=== PATIENT | female | born 1990 | race Caucasian/White ===

== ENCOUNTER 2019-07-28 16:30 | Emergency (ER) | payer OTHER, MEDICAID, SELFPAY ==
[2019-07-28 16:51] VITALS: BP 121/74; PULSE 87; RESP 20; TEMP 36.4; O2SAT 98; BMI 29.2
[2019-07-28 17:10] LABS: Add Manual Diff / Slide Review NO; Basophils Absolute Auto 100 /uL (0-100); Basophils Percent Auto 0.7 % (0-2); Eosinophils Absolute Auto 100 /uL (0-450); Eosinophils Percent Auto 0.8 % (2-4); Hematocrit 44.4 % (36-46); Hemoglobin 15.4 g/dL (12.0-16.0); Lymphocytes Absolute Auto 4000 /uL (1100-4500); Lymphocytes Percent Auto 30.1 % (25-40); Mean Corpuscular HGB Conc 34.6 % (30-36); Mean Corpuscular Hemoglobin 31.9 PG (26-34); Mean Corpuscular Volume 92.1 fL (80-100); Monocytes Absolute Auto 500 /uL (0-900); Monocytes Percent Auto 3.5 % (3-14); Neutrophils Absolute Auto 8700 /uL (1500-7000); Neutrophils Percent Auto 64.9 % (50-75); Platelet Count 174 X10^3/uL (150-400); Red Blood Cell Count 4.82 X10^6/uL (4.0-5.2); Red Cell Distribution Width 13.4 % (11.6-14.8); White Blood Cell Count 13.4 X10^3/uL (4.5-11.0)
--- NOTE | 2019-07-28 17:10 | PC.NURSE ---
Reports cramping after urination. Denies burning or urgency to urinate. Denies fevers or chills. States she had a normal UA at [facility] [employer]
[2019-07-28 17:19] LABS: PTT Partial Thromboplastin Tim 30 SECONDS (26.4-36.2)
[2019-07-28 17:24] LABS: Alanine Aminotransferase 33 IU/L (9-52); Albumin 4.5 g/dL (3.5-5.0); Albumin Globulin Ratio 1.6 (1.0-2.8); Alkaline Phosphatase 67 U/L (38-126); Aspartate Aminotransferase 28 IU/L (14-36); BUN Creatinine Ratio 17.1 (6-22); Bilirubin Total 0.5 mg/dL (0.2-1.3); Blood Urea Nitrogen 12 mg/dL (7-17); Calcium 9.9 mg/dL (8.4-10.2); Carbon Dioxide 28 mmol/L (22-32); Chloride 103 mmol/L (98-107); Estimated Glomerular Filt Rate > 60.0 mL/min (>60); Globulin 2.9 g/dL (1.7-4.1); Glucose 110 mg/dL (70-100); HEMOLYSIS < 15 (0-50); Lipase 162 U/L (23-300); Potassium 3.7 mmol/L (3.4-5.1); Sodium 139 mmol/L (137-145); Total Protein 7.4 g/dL (6.3-8.2)
--- NOTE | 2019-07-28 17:42 | DI.US.S_ITS ---
PROCEDURE: US PELVIC COMPLETE INDICATIONS: LLQ PAIN, HX CYSTS AND ENDO TECHNIQUE: Real-time scanning was performed of the pelvic organs, with image documentation. Additional endovaginal scanning was necessary due to incomplete visualization of the adnexal and endometrial structures by transabdominal scanning. COMPARISON: None. FINDINGS: Transabdominal scanning: Limited scanning through the kidneys shows no hydronephrosis. A 3.6 cm echogenicity is present within the left kidney suggesting the presence of a nonobstructing stone. No pathologic free abdominal or pelvic fluid. Endovaginal scanning: Uterus: Uterus is normal in size at 6.4 x 2.2 x 3.2 cm. The endometrium measures 2.6 mm in combined thickness. Ovaries: The right ovary measures 3.3 x 2.0 x 2.8 cm. The left ovary measures 3.3 x 1.9 x 2.1 cm. Both ovaries demonstrate straight multiple subcentimeter follicular cysts. IMPRESSION: 1. Multiple subcentimeter bilateral follicular cysts. These findings raise the suspicion for polycystic ovarian disease. In the absence of ovulatory dysfunction or clinically/biochemically diagnosed hyperandrogenism, findings are non specific and do not indicate the presence of polycystic ovarian syndrome. 2. Probable nonobstructive left nephrolithiasis. Dictated by: Lilia Chavez M.D. on 07/28/2019 at 18:17 Approved by: Lilia Chavez M.D. on 07/28/2019 at 18:20
--- NOTE | 2019-07-28 18:24 | DI.CT.S_ITS ---
PROCEDURE: CT KIDNEY URETER BLADDER (KUB) INDICATIONS: left flank pain TECHNIQUE: Noncontrast 5 mm thick sections acquired from the diaphragms to the symphysis. 5 mm thick coronal and sagittal reformats were then performed. For radiation dose reduction, the following was used: automated exposure control, adjustment of mA and/or kV according to patient size. COMPARISON: [facility], CT, ABD/PELVIS W/CON (PNL), 07/27/2014, 4:47. FINDINGS: Image quality: Excellent. Lung bases: Lung bases are clear. Heart size is normal. Urinary system: Both kidneys are normal in size. No kidney stones. No hydronephrosis or perinephric fat stranding. Both ureters appear non-dilated throughout their expected courses. Bladder wall thickness is normal; no calcified bladder stones. Other solid organs: Liver is normal in size. Gallbladder is contracted. Pancreas is normal in contours. Spleen is normal in size. No adrenal nodules. Peritoneum and bowel: Unenhanced bowel loops demonstrate normal wall thickness and caliber. The appendix is thin walled and gas filled. There are scattered colonic diverticula. No evidence for diverticulitis. No free fluid or air. Nodes and vessels: No retroperitoneal or mesenteric adenopathy by size criteria. Aorta and inferior vena cava are normal in caliber. Abdominal wall: No ventral hernias. Pelvis: No free pelvic fluid. No inguinal hernias or adenopathy. The uterus and ovaries are grossly unremarkable on this noncontrast study. Bones: No suspicious bony lesions. No vertebral body compression fractures. IMPRESSION: 1. No hydronephrosis, nephrolithiasis, hydroureter, or ureterolithiasis. 2. No acute intra-abdominal findings. Normal appendix. Dictated by: Lilia Chavez M.D. on 07/28/2019 at 18:54 Approved by: Lilia Chavez M.D. on 07/28/2019 at 18:57
[2019-07-28] MEDS: KETOROLAC 60 MG/2 ML VIAL IM (18:38)
[2019-07-28] MEDS: HYDROCODONE/ACET 5/325 TABLET 1 TAB PO (19:50)
[2019-07-28] MEDS: CYCLOBENZAPRINE 10 MG TABLET PO (19:50)
[2019-07-28] MEDS: LIDOCAINE PATCH 1 EACH ADH..PATCH TOP (19:50)
--- NOTE | 2019-07-28 20:05 | ED.ABDPAIN ---
HPI - Abdominal Pain <MCKINLEY Mazariegos - Last Filed: 07/28/19 20:19> General Chief Complaint: Abdominal Pain Stated Complaint: pain on lower L back going to front abdomen Time Seen by Provider: 07/28/19 17:08 Source: patient Mode of arrival: Ambulatory Limitations: no limitations History of Present Illness HPI narrative: The patient is a 29-year-old female nonsmoker status post wisdom tooth removal who presents with a chief complaint of left back pain. She states that she has some pain after urination, but denies dysuria urgency or frequency. She states that she was seen today at [facility], had a normal urinalysis and was then sent to the emergency department. She states that 6 days ago she had some nausea vomiting, but recovered fully. She states she has a history of ovarian cyst as well as endometriosis. She denies any possibility of as well to the possibility of sexually transmitted infections. She thinks the pain may be musculoskeletal related to lifting as she has been caring for a family member who for the past month and half. Related Data Home Medications Medication Instructions Recorded Confirmed medroxyprogesterone 150 mg/mL 150 mg IM [id number] 04/07/18 04/07/18 intramuscular suspension Previous Rx's Medication Instructions Recorded cyclobenzaprine 10 mg PO TID PRN #20 tab 07/28/19 hydrocodone-acetaminophen [Strathmore] 1 tab PO Q4-6H PRN #5 tab 07/28/19 Allergies Allergy/AdvReac Type Severity Reaction Status Date / Time doxycycline AdvReac n/v Verified 04/07/18 10:08 guaifenesin [From Mucinex] AdvReac n/v Verified 04/07/18 10:08 trazodone AdvReac mental Verified 04/07/18 10:08 status changes Review of Systems <MCKINLEY Mazariegos - Last Filed: 07/28/19 20:19> Review of Systems Narrative: GENERAL: Denies chills, fatigue, malaise, fever, sweats. HEENT: Denies sinus pain, ear pain, sore throat, difficulty swallowing, dizziness. RESPIRATORY: Denies dyspnea, cough, wheezing, hemoptysis, sputum. CARDIOVASCULAR: Denies chest pain, palpitations, orthopnea, edema, GASTROINTESTINAL: Denies nausea, vomiting, abdominal pain, diarrhea, constipation, melena. : HPI MUSCULOSKELETAL: HPI SKIN: Denies rash, skin lesions, or other NEUROLOGIC: Denies weakness, headache, numbness, change in speech, confusion, seizures, incoordination. PSYCHIATRIC: No concerning psychosocial issues. 12 point review of systems is negative except for those stated above PFSH <AXEL Mazariegos-BC - Last Filed: 07/28/19 20:19> Surgical History (Updated 04/07/18 @ 10:11 by Michelle Raya LPN) S/P wisdom tooth extraction (Resolved) Social History Smoking Status: Current every day smoker Social History Smoking Status: Current every day smoker Exam <AXEL Mazariegos- - Last Filed: 07/28/19 20:19> Narrative Exam Narrative: GENERAL: This is a well-nourished, well-developed patient, appears uncomfortable HEAD: Atraumatic. Normocephalic. No temporal or scalp tenderness. EYES: Pupils equal round and reactive. Extraocular motions intact. No scleral icterus. No injection or drainage. ENT: Nose without bleeding, purulent drainage or septal hematoma. Throat without erythema, tonsillar hypertrophy or exudate. Uvula midline. Airway patent. NECK: Trachea midline. No JVD or lymphadenopathy. Supple, nontender, no meningeal signs. CARDIOVASCULAR: Regular rate and rhythm without murmurs, gallops, or rubs. RESPIRATORY: Clear to auscultation. Breath sounds equal bilaterally. No wheezes, rales, or rhonchi. No cough. No increased respiratory effort. No accessory muscle use. GASTROINTESTINAL: Abdomen soft, tenderness to left lower quadrant palpation, nondistended. No hepato-splenomegaly, or palpable masses. No guarding. Active bowel sounds all 4 quadrants EXTREMITIES: No clubbing, cyanosis, or edema. No joint tenderness, effusion, or edema noted. BACK: Pain to palpation left lower paraspinal muscle. No pain to palpation of CT or L-spine. NEURO: AOx3. SKIN: No rash or erythema. Initial Vital Signs Initial Vital Signs: Vital Signs Temperature 97.5 F L 07/28/19 16:51 Pulse Rate 87 07/28/19 16:51 Respiratory Rate 20 07/28/19 16:51 Blood Pressure 121/74 07/28/19 16:51 Pulse Oximetry 98 07/28/19 16:51 <Nima Ch DO - Last Filed: 07/29/19 06:55> Initial Vital Signs Initial Vital Signs: Vital Signs Temperature 97.5 F L 07/28/19 16:51 Pulse Rate 87 07/28/19 16:51 Respiratory Rate 20 07/28/19 16:51 Blood Pressure 121/74 07/28/19 16:51 Pulse Oximetry 98 07/28/19 16:51 Course <MCKINLEY Mazariegos - Last Filed: 07/28/19 20:19> Orders Ordered: Discontinued Medications Hydrocodone Bitart/Acetaminophen (Strathmore 5/325) 1 tab PO NOW ONE Stop: 07/28/19 19:40 Last Admin: 07/28/19 19:50 Dose: 1 tab Documented by: DANIEL Cyclobenzaprine HCl (Flexeril) 10 mg PO NOW ONE Stop: 07/28/19 19:40 Last Admin: 07/28/19 19:50 Dose: 10 mg Documented by: DANIEL Ketorolac Tromethamine (Toradol) 60 mg IM NOW ONE Stop: 07/28/19 18:25 Last Admin: 07/28/19 18:38 Dose: 60 mg Documented by: SCANAPO Lidocaine (Lidoderm) 1 each TOP NOW ONE Stop: 07/28/19 19:40 Last Admin: 07/28/19 19:50 Dose: 1 each Documented by: DANIEL Vital Signs Vital signs: Vital Signs - 8 hr 07/28/19 16:51 Temperature 97.5 F L Pulse Rate 87 Respiratory Rate 20 Blood Pressure 121/74 Pulse Oximetry 98 <DO Mony Novak Last Filed: 07/29/19 06:55> Orders Ordered: Discontinued Medications Hydrocodone Bitart/Acetaminophen (Strathmore 5/325) 1 tab PO NOW ONE Stop: 07/28/19 19:40 Last Admin: 07/28/19 19:50 Dose: 1 tab Documented by: DANIEL Cyclobenzaprine HCl (Flexeril) 10 mg PO NOW ONE Stop: 07/28/19 19:40 Last Admin: 07/28/19 19:50 Dose: 10 mg Documented by: DANIEL Ketorolac Tromethamine (Toradol) 60 mg IM NOW ONE Stop: 07/28/19 18:25 Last Admin: 07/28/19 18:38 Dose: 60 mg Documented by: SOHAN Lidocaine (Lidoderm) 1 each TOP NOW ONE Stop: 07/28/19 19:40 Last Admin: 07/28/19 19:50 Dose: 1 each Documented by: DANIEL Vital Signs Vital signs: Vital Signs - 8 hr 07/28/19 16:51 Temperature 97.5 F L Pulse Rate 87 Respiratory Rate 20 Blood Pressure 121/74 Pulse Oximetry 98 MDM - Abdominal Pain <AXEL Mazariegos-BC - Last Filed: 07/28/19 20:19> Lab Data Result diagrams: 07/28/19 17:03 07/28/19 17:03 Labs: Lab Results 07/28/19 07/28/19 07/28/19 Range/Units 17:03 17:03 17:03 WBC 13.4 H (4.5-11.0) X10^3/uL RBC 4.82 (4.0-5.2) X10^6/uL Hgb 15.4 (12.0-16.0) g/dL Hct 44.4 (36-46) % MCV 92.1 (80-100) fL MCH 31.9 (26-34) PG MCHC 34.6 (30-36) % RDW 13.4 (11.6-14.8) % Plt Count 174 (150-400) X10^3/uL Neut % (Auto) 64.9 (50-75) % Lymph % (Auto) 30.1 (25-40) % Sampson % (Auto) 3.5 (3-14) % Eos % (Auto) 0.8 L (2-4) % Baso % (Auto) 0.7 (0-2) % Neut # (Auto) 8700 H (1550-8236) /uL Lymph # (Auto) 4000 (6096-1132) /uL Sampson # (Auto) 500 (0-900) /uL Eos # (Auto) 100 (0-450) /uL Baso # (Auto) 100 (0-100) /uL PT 12.0 (10.1-12.7) SECONDS INR 1.0 (0.9-1.3) APTT 30 (26.4-36.2) SECONDS Sodium 139 (137-145) mmol/L Potassium 3.7 (3.4-5.1) mmol/L Chloride 103 (98-107) mmol/L Carbon Dioxide 28 (22-32) mmol/L BUN 12 (7-17) mg/dL Creatinine 0.70 (0.52-1.04) mg/dL Estimated GFR > 60.0 (>60) mL/min BUN/Creatinine Ratio 17.1 (6-22) Glucose 110 H (70-100) mg/dL Calcium 9.9 (8.4-10.2) mg/dL Total Bilirubin 0.5 (0.2-1.3) mg/dL AST 28 (14-36) IU/L ALT 33 (9-52) IU/L Alkaline Phosphatase 67 (38-126) U/L Total Protein 7.4 (6.3-8.2) g/dL Albumin 4.5 (3.5-5.0) g/dL Globulin 2.9 (1.7-4.1) g/dL Albumin/Globulin Ratio 1.6 (1.0-2.8) Lipase 162 (23-300) U/L Point of care testing: Point of Care Testing Test Results Negative Urine Dip Bedside Urine Glucose Negative Bedside Urine Bilirubin - Negative Bedside Urine Ketone +/- 5 Urine Specific [place] 1.025 Bedside Urine Occult Blood - Negative Bedside Urine pH 6.0 Bedside Urine Protein +/- 15 Bedside Urine Urobilinogen +/- 1mg Bedside Urine Nitrite - Negative Bedside Urine Leukocytes - Negative Esterase Imaging Data CT scan - abdomen: Radiologist's impression: [place] [address] CT Scan Report Signed Patient: Cash Cavanaugh#: [id number] : 1990Acct:[id number] Age/Sex: FDate of Service: 07/28/19 Loc: ED Accession Number: [id number] Procedure: CT kidney ureter bladder (KUB) Ordering Provider: Camila Adler PROCEDURE: CT KIDNEY URETER BLADDER (KUB) INDICATIONS: left flank pain TECHNIQUE: Noncontrast 5 mm thick sections acquired from the diaphragms to the symphysis. 5 mm thick coronal and sagittal reformats were then performed. For radiation dose reduction, the following was used: automated exposure control, adjustment of mA and/or kV according to patient size. COMPARISON: [facility], CT, ABD/PELVIS W/CON (PNL), 07/27/2014, 4:47. FINDINGS: Image quality: Excellent. Lung bases: Lung bases are clear. Heart size is normal. Urinary system: Both kidneys are normal in size. No kidney stones. No hydronephrosis or perinephric fat stranding. Both ureters appear non-dilated throughout their expected courses. Bladder wall thickness is normal; no calcified bladder stones. Other solid organs: Liver is normal in size. Gallbladder is contracted. Pancreas is normal in contours. Spleen is normal in size. No adrenal nodules. Peritoneum and bowel: Unenhanced bowel loops demonstrate normal wall thickness and caliber. The appendix is thin walled and gas filled. There are scattered colonic diverticula. No evidence for diverticulitis. No free fluid or air. Nodes and vessels: No retroperitoneal or mesenteric adenopathy by size criteria. Aorta and inferior vena cava are normal in caliber. Abdominal wall: No ventral hernias. Pelvis: No free pelvic fluid. No inguinal hernias or adenopathy. The uterus and ovaries are grossly unremarkable on this noncontrast study. Bones: No suspicious bony lesions. No vertebral body compression fractures. IMPRESSION: 1. No hydronephrosis, nephrolithiasis, hydroureter, or ureterolithiasis. 2. No acute intra-abdominal findings. Normal appendix. US - abdomen: Radiologist's impression: Tash Cavanaugh 29 F 1990 [place] [address] Ultrasound Report Signed Patient: Isael CavanaughR#: [id number] : 1990Acct:[id number] Age/Sex: 29 / FDate of Service: 07/28/19 Loc: ED Accession Number: [id number] Procedure: US pelvic complete Ordering Provider: Camila Adler EXERCISE PHYSIOLOGIST CERTIFIED-BC PROCEDURE: US PELVIC COMPLETE INDICATIONS: LLQ PAIN, HX CYSTS AND ENDO TECHNIQUE: Real-time scanning was performed of the pelvic organs, with image documentation. Additional endovaginal scanning was necessary due to incomplete visualization of the adnexal and endometrial structures by transabdominal scanning. COMPARISON: None. FINDINGS: Transabdominal scanning: Limited scanning through the kidneys shows no hydronephrosis. A 3.6 cm echogenicity is present within the left kidney suggesting the presence of a nonobstructing stone. No pathologic free abdominal or pelvic fluid. Endovaginal scanning: Uterus: Uterus is normal in size at 6.4 x 2.2 x 3.2 cm. The endometrium measures 2.6 mm in combined thickness. Ovaries: The right ovary measures 3.3 x 2.0 x 2.8 cm. The left ovary measures 3.3 x 1.9 x 2.1 cm. Both ovaries demonstrate straight multiple subcentimeter follicular cysts. IMPRESSION: 1. Multiple subcentimeter bilateral follicular cysts. These findings raise the suspicion for polycystic ovarian disease. In the absence of ovulatory dysfunction or clinically/biochemically diagnosed hyperandrogenism, findings are non specific and do not indicate the presence of polycystic ovarian syndrome. 2. Probable nonobstructive left nephrolithiasis. Dictated by: Lilia Chavez M.D. on 07/28/2019 at 18:17 Approved by: Lilia Chavez M.D. on 07/28/2019 at 18:20 MDM Narrative Medical decision making narrative: The patient is a 29-year-old female who presents with a chief complaint of left-sided flank pain and left lower quadrant pain. Given her history of ovarian cysts and endometriosis, and ultrasound was obtained. This illustrates multiple bilateral follicular cysts, raising suspicion of PCOS there was concern for a left kidney stone on ultrasound, so a CT was obtained which came back with no acute findings. The patient was medicated from musculoskeletal pain, has no red flag symptoms of incontinence bowel, incontinence of bladder saddle anesthesia. She felt much better after medications in the emergency department rested to go home. I gave her prescriptions of Strathmore and Flexeril. Discussed using lidocaine patch as well as NSAIDs. Discussed that Strathmore can be constipating and sedating. Encourage PCP follow-up. Patient has no questions or concerns upon discharge and states understanding of follow-up care as well as return precautions. <Nima Ch, DO - Last Filed: 07/29/19 06:55> Lab Data Labs: Lab Results 07/28/19 07/28/19 07/28/19 Range/Units 17:03 17:03 17:03 WBC 13.4 H (4.5-11.0) X10^3/uL RBC 4.82 (4.0-5.2) X10^6/uL Hgb 15.4 (12.0-16.0) g/dL Hct 44.4 (36-46) % MCV 92.1 (80-100) fL MCH 31.9 (26-34) PG MCHC 34.6 (30-36) % RDW 13.4 (11.6-14.8) % Plt Count 174 (150-400) X10^3/uL Neut % (Auto) 64.9 (50-75) % Lymph % (Auto) 30.1 (25-40) % Sampson % (Auto) 3.5 (3-14) % Eos % (Auto) 0.8 L (2-4) % Baso % (Auto) 0.7 (0-2) % Neut # (Auto) 8700 H (2309-3385) /uL Lymph # (Auto) 4000 (9570-6928) /uL Sampson # (Auto) 500 (0-900) /uL Eos # (Auto) 100 (0-450) /uL Baso # (Auto) 100 (0-100) /uL PT 12.0 (10.1-12.7) SECONDS INR 1.0 (0.9-1.3) APTT 30 (26.4-36.2) SECONDS Sodium 139 (137-145) mmol/L Potassium 3.7 (3.4-5.1) mmol/L Chloride 103 (98-107) mmol/L Carbon Dioxide 28 (22-32) mmol/L BUN 12 (7-17) mg/dL Creatinine 0.70 (0.52-1.04) mg/dL Estimated GFR > 60.0 (>60) mL/min BUN/Creatinine Ratio 17.1 (6-22) Glucose 110 H (70-100) mg/dL Calcium 9.9 (8.4-10.2) mg/dL Total Bilirubin 0.5 (0.2-1.3) mg/dL AST 28 (14-36) IU/L ALT 33 (9-52) IU/L Alkaline Phosphatase 67 (38-126) U/L Total Protein 7.4 (6.3-8.2) g/dL Albumin 4.5 (3.5-5.0) g/dL Globulin 2.9 (1.7-4.1) g/dL Albumin/Globulin Ratio 1.6 (1.0-2.8) Lipase 162 (23-300) U/L Point of care testing: Point of Care Testing Test Results Negative Urine Dip Bedside Urine Glucose Negative Bedside Urine Bilirubin - Negative Bedside Urine Ketone +/- 5 Urine Specific [place] 1.025 Bedside Urine Occult Blood - Negative Bedside Urine pH 6.0 Bedside Urine Protein +/- 15 Bedside Urine Urobilinogen +/- 1mg Bedside Urine Nitrite - Negative Bedside Urine Leukocytes - Negative Esterase Discharge Plan Departure Patient Disposition: Home Clinical Impression: Low back pain Qualifiers: Chronicity: acute Back pain laterality: left Sciatica presence: without sciatica Qualified Code(s): M54.5 - Low back pain Discharge Date/Time: 07/28/19 20:22 Instructions: DI for Low Back Pain, Activity May Be Better then Rest for Low Back Pain Recovery, Exercise May Reduce Risk of Low Back Pain Activity Restrictions/Additional Instructions: Please follow up with primary care provider. Your ultrasound today shows bilateral follicular cyst, which can be indicative of polycystic ovarian syndrome. Please follow up with primary care regarding this. Your CT scan did not show any concerning findings. We have treated you for musculoskeletal pain with muscle relaxers and pain medications. Be aware Strathmore can be constipating and sedating. Lidocaine patches are available [email or web address] at the [employer]. Please continue rest and NSAIDs as needed and able. Please come back to emergency department for any acute concerns such as incontinence of bowel, incontinence of bladder or numbness in the groin. Prescriptions: New hydrocodone-acetaminophen [Strathmore] 5-325 mg tablet 1 tab PO Q4-6H PRN (Reason: pain) Qty: 5 RF: 0 cyclobenzaprine 10 mg tablet 10 mg PO TID PRN (Reason: muscle spasm) Qty: 20 RF: 0 No Action medroxyprogesterone [Depo-Provera] 150 mg/mL suspension 150 mg IM [id number] RF: 0 Stand Alone Forms: Work Release Note <Nima Ch DO - Last Filed: 07/29/19 06:55> Sign Out Provider Sign Out Attestation: I was available for consultation during this patient's emergency department encounter
[2019-07-28 20:21] VITALS: BP 114/76; PULSE 68; RESP 16; O2SAT 97
== END 2019-07-28 20:22 | disposition home or self-care (01) ==
PROVIDERS: Emergency Medicine; Emergency Provider Nurse Practitioner Family
DX: M54.5 Low back pain (principal)
CPT/HCPCS: 36415; 74176; 76830; 76856; 80053; 81003; 81025; 83690; 85025; 85610; 85730; 96372; 99282; 99284; J1885

== ENCOUNTER 2019-09-22 07:12 | Day surgery (SDC) | payer OTHER, MEDICAID, SELFPAY ==
[2019-08-29 14:58] VITALS: BMI 28.6
[2019-09-14 15:08] VITALS: BMI 28.6
[2019-09-22] VITALS (12 sets, daily range): BP systolic 111–154; BP diastolic 64–96; PULSE 87–117; RESP 12–25; TEMP 36.4–36.9; O2SAT 93–98; BMI 30.2
[2019-09-22] MEDS: LACTATED RINGERS 1,000 ML 42 ML IV ×2 (07:45→10:08)
--- NOTE | 2019-09-22 08:10 | SUR.OPER ---
Lithotomy on padded OR bed, head on pillow, arms gel padded and tucked at sides. Legs secured in padded yellow fins stirrups.
--- NOTE | 2019-09-22 08:49 | PM.HP.1 ---
History of Present Illness History of Present Illness Date Patient Seen: 09/22/19 Time Patient Seen: 08:49 Chief complaint: [id number] PELVIC Narrative: Patient is a 29-year-old 0 with pelvic pain and BOBBI 1 of the cervix She is here for cryotherapy of the cervix as well as a diagnostic laparoscopy with possible fulguration of endometriosis Patient History Medical History (Updated 09/22/19 @ 08:51 by Darshana Huerta MD) Dysplasia of cervix, low grade (BOBBI 1) (Acute) Endometriosis (Acute) Ovarian cyst (Acute) Pelvic pain (Acute) Surgical History (Updated 08/29/19 @ 15:02 by Carito Suazo RN) History of colposcopy (Acute 04/07/18) S/P wisdom tooth extraction (Resolved) Family & Social History Tobacco & Substance use: Smoking Status Current every day smoker alcohol intake current alcohol intake frequency other Substance Use Type marijuana Meds Home Medications and Allergies Home Medications Medication Instructions Recorded Confirmed Type medroxyprogesterone 150 mg/mL 150 mg IM [id number] 04/07/18 09/22/19 History intramuscular suspension Allergies Allergy/AdvReac Type Severity Reaction Status Date / Time doxycycline AdvReac n/v Verified 09/22/19 07:35 guaifenesin [From Mucinex] AdvReac n/v Verified 09/22/19 07:35 trazodone AdvReac mental Verified 09/22/19 07:35 status changes Exam Vital Signs (past 8 hours): - 09/22/19 07:41 Temperature 97.6 F Pulse Rate 87 Respiratory Rate 12 Blood Pressure 138/88 Pulse Oximetry 98 Oxygen Delivery Method Room Air Narrative Exam Narrative: HEENT: No thyromegaly, no anterior cervical or supraclavicular lymphadenopathy. Lungs:Clear to auscultation bilaterally, no wheezes. Cardiovascular: Regular rate and rhythm, no murmurs, rubs, or gallops. Abdomen: No scars. No hepatosplenomegaly. No masses palpable. External genitalia: Normal Vagina: Normal Cervix: Normal Bimanual exam: 6 Week size uterus. Mobile. Rectal: No masses. Colposcopic biopsies: Consistent with BOBBI 1 Assessment & Plan Assessment and plan (1) Pelvic pain: Current visit: Yes Status: Acute (2) Dysplasia of cervix, low grade (BOBBI 1): Current visit: Yes Status: Acute Assessment & Plan narrative: Assessment: 29-year-old 0 with pelvic pain, history of ovarian cysts, and BOBBI 1 of the cervix Plan: Diagnostic laparoscopy with possible fulguration of endometriosis Cryotherapy of the cervix The risks, benefits, and alternatives to the procedure were explained to the patient. The risks including bleeding, infection, injury to the bowel, bladder, or ureters. She understands these risks and agrees to proceed. A full par Q was held and consent form was signed. Time Spent With Patient Time with patient: 15-24 minutes
--- NOTE | 2019-09-22 08:52 | PM.PREOP ---
Pre-operative Note Interval Note History & Physical reviewed/Exam performed by Physician: Yes Changes to H&P: No
[2019-09-22] MEDS: BUPIVACAINE 0.5% W/ EPI (PF) VIAL 30 ML INJ (09:31)
[2019-09-22] MEDS: KETOROLAC 30 MG/ML VIAL IV (09:59)
[2019-09-22] MEDS: fentaNYL 100 MCG/2 ML INJ IV ×2 (10:03→10:10)
[2019-09-22] MEDS: HYDROMORPHONE 2 MG INJ IV ×3 (10:24→10:43)
[2019-09-22] MEDS: LORazepam 2 MG/ML INJ 0.25 MG IV (10:33)
--- NOTE | 2019-09-22 10:50 | SUR.PHASEI ---
Pt requested scds be removed, scds removed. Ankle waves encouraged.
[2019-09-22] MEDS: OXYCODONE/ACETAMINOPHEN 5/325 TABLET 1 TAB PO (10:53)
--- NOTE | 2019-09-22 11:03 | SUR.PHASEI ---
Dr. Sigala notified pt's 112, temp wnl. Ok to discharge per MD.
--- NOTE | 2019-09-26 06:27 | PM.GYNOP.1 ---
Operative Date/Time/Diagnoses Date of procedure: 09/22/19 Time of procedure: 09:45 Procedure & Clinicians Procedure: Procedures Operation Date: 09/22/19 08:45 Actual Procedures Side Surgeon p Laparoscopy Diagnostic, cryotherapy of cervix Darshana Huerta MD Indications: Pelvic pain History of ovarian cyst BOBBI 1 of the cervix Surgeon: Darshana Huerta Anesthesia Type: General Operative Notes Findings: Six week size anteverted uterus No evidence of endometriosis No evidence of ovarian cyst Normal liver, gallbladder, and appendix Normal tubes and ovaries Closure Type: primary Specimen(s): none Estimated blood loss (mL): 5 Blood products transfused: none Procedure in detail: After informed consent was obtained, the patient was taken to the operating room where she was placed in the dorsal supine position. After adequate general endotracheal anesthesia was achieved, she was placed in the dorsal lithotomy position, and prepped and draped in the usual sterile fashion. A time-out was performed. A bivalve speculum was placed into the vagina and the anterior lip of the cervix was grasped with a single-tooth tenaculum. The cervical os was sequentially dilated until the Zumi uterine manipulator could pass easily into the endometrial cavity. The single-tooth tenaculum was removed from the anterior lip of the cervix. The bivalve speculum was removed from the vagina. Attention was then turned to the abdomen where 6 cc of 0.5% Marcaine with epinephrine were injected in the umbilical fold. The Veress needle was placed into the peritoneal cavity, and its placement confirmed by aspiration and drop test. The abdominal cavity was insufflated with 3.1 L of CO2. The Veress needle was removed, and a 5 mm trocar was placed without difficulty. A 2nd incision was made after 6 cc of 0.5% Marcaine with epinephrine were injected midway between the pubic symphysis and umbilicus, 4 cm lateral to the midline. A 5 mm trocar was placed under direct visualization. The probe was placed through the lateral incision. The tubes and ovaries were identified and were found to be normal. There was no evidence of endometriosis on the ovaries, tubes, or in the ovarian fossa. The uterus was normal. The liver, gallbladder, and appendix were normal. There was no evidence of ovarian cyst. The instruments were removed from the abdomen. The CO2 was allowed to escape. The incisions were repaired with 4-0 Biosyn in a subcuticular fashion. Steri-Strips, 2 x 2, and op site were placed. Attention was then turned to the vagina where the Zumi uterine manipulator was removed from the uterus. The cervix was dried with large procto swabs. Using the medium-sized tip cryotherapy was applied to the cervix for 3 minutes. The cervix was allowed to thaw. Cryotherapy was applied for 3 minutes. After thawing, the bivalve speculum was removed from the vagina. Sponge, lap, and instrument counts were correct x2. The patient tolerated the procedure well, and was taken to PACU in stable condition. Complications: none Post-operative Condition: stable Disposition: PACU Plan for aftercare: Home after recovery
== END 2019-09-22 11:34 | disposition home or self-care (01) ==
PROVIDERS: PCP Family Medicine; Visit Provider Obstetrics & Gynecology
PROC: (CPT 49320; principal; 2019-09-22 08:45)
DX: R10.2 Pelvic and perineal pain (principal); N94.10 Unspecified dyspareunia; N87.0 Mild cervical dysplasia; F17.210 Nicotine dependence, cigarettes, uncomplicated
CPT/HCPCS: 49320; 57511; J1100; J1170; J1885; J2060; J2250; J2405; J2704; J3010

== ENCOUNTER 2020-07-22 15:39 | Emergency (ER) | payer OTHER, MEDICAID, SELFPAY ==
[2020-07-22 15:48] VITALS: BP 135/93; PULSE 97; RESP 24; TEMP 36.9; O2SAT 97
--- NOTE | 2020-07-22 16:14 | PC.NURSE ---
Hot grease burn to bilateral feet. Went through shoes. Small red area on right ankle, superficial red area.
[2020-07-22] MEDS: HYDROCODONE/ACET 5/325 TABLET 2 TAB PO (16:15)
[2020-07-22] MEDS: TET,DIPH,PERTUSS(ACELL),VAC/PF 0.5 ML SYRINGE IM (16:15)
[2020-07-22] MEDS: BACITRACIN OINT 0.9 GM PCKT 5 APPLIC TOP (18:43)
[2020-07-22] MEDS: HYDROCODONE/ACET 5/325 PREPACK 1 BOTTLE MISC (19:12)
--- NOTE | 2020-07-22 20:49 | ED.BURNSMOKE ---
HPI - Burn/Smoke Inhalation <AXEL Mazariegos-BC - Last Filed: 07/22/20 20:55> General Chief complaint: Burn/Smoke Inhalation Stated complaint: spilled hot grease on her feet Time Seen by Provider: 07/22/20 16:03 Source: patient Mode of arrival: Ambulatory Limitations: no limitations History of Present Illness HPI Narrative: The patient is a 30-year-old female current smoker with no pertinent medical history presents with a chief complaint of a burn. She unfortunately spilled hot grease on her feet at her job. She was wearing socks and shoes but it soaked through. She does not know when her last tetanus was. She states she is having some blistering. She washed off her feet after it happened. It happened at approximately noon today, several hours prior to arrival. Related Data Home Medications Medication Instructions Recorded Confirmed medroxyprogesterone 150 mg/mL 150 mg IM [id number] 04/07/18 10/12/19 intramuscular suspension Previous Rx's Medication Instructions Recorded ondansetron 4 mg disintegrating 4 mg PO Q8H PRN #10 tab 09/23/19 tablet fluconazole 150 mg tablet 150 mg PO ONCE #1 tab 10/12/19 oxycodone-acetaminophen 5 mg-325 1 tab PO Q4-6H PRN #14 tab 10/12/19 mg tablet hydrocodone-acetaminophen 1 tab PO Q4-6H PRN #14 tab 07/22/20 Allergies Allergy/AdvReac Type Severity Reaction Status Date / Time doxycycline AdvReac n/v Verified 10/12/19 12:25 guaifenesin [From Mucinex] AdvReac n/v Verified 10/12/19 12:25 trazodone AdvReac mental Verified 10/12/19 12:25 status changes Review of Systems <ARIEL MazariegosBC - Last Filed: 07/22/20 20:55> Review of Systems Narrative: GENERAL: Denies chills, fatigue, malaise, fever, sweats. HEENT: Denies sinus pain, ear pain, sore throat, difficulty swallowing, dizziness. RESPIRATORY: Denies dyspnea, cough, wheezing, hemoptysis, sputum. CARDIOVASCULAR: Denies chest pain, palpitations, orthopnea, edema, GASTROINTESTINAL: Denies nausea, vomiting, abdominal pain, diarrhea, constipation, melena. : Denies dysuria, frequency, incontinence, hematuria, urinary retention. MUSCULOSKELETAL: denies weakness, joint pain, or bony pain SKIN: See HPI NEUROLOGIC: Denies weakness, headache, numbness, change in speech, confusion, seizures, incoordination. PSYCHIATRIC: No concerning psychosocial issues. 12 point review of systems is negative except for those stated above Patient History <MCKINLEY Mazariegos - Last Filed: 07/22/20 20:55> Medical History Dyspareunia (Acute) Dysplasia of cervix, low grade (BOBBI 1) (Acute) Endometriosis (Acute) Ovarian cyst (Acute) Pelvic pain (Acute) Surgical History H/O laparoscopy (Acute ~09/22/19) History of colposcopy (Acute 04/07/18) S/P wisdom tooth extraction (Resolved) Social History Smoking Status: Current every day smoker alcohol intake: current Smoking Status: Current every day smoker alcohol intake frequency: other Substance Use Type: marijuana Exam <MCKINLEY Mazariegos - Last Filed: 07/22/20 20:55> Narrative Exam Narrative: GENERAL: This is a well-nourished, well-developed patient, teary HEAD: Atraumatic. Normocephalic. No temporal or scalp tenderness. EYES: Pupils equal round and reactive. Extraocular motions intact. No scleral icterus. No injection or drainage. ENT: Nose without bleeding, purulent drainage or septal hematoma. Wearing a mask Airway patent. NECK: Trachea midline. No JVD or lymphadenopathy. Supple, nontender, no meningeal signs. CARDIOVASCULAR: Regular rate and rhythm RESPIRATORY: No cough. No increased respiratory effort. No accessory muscle use. EXTREMITIES: See skin exam positive pedal pulses. Capillary refill less than 2 seconds all toes. BACK: Nontender without deformity or crepitance. No flank tenderness. NEURO: AOx3. SKIN: 2 x 1 cm blistered partial-thickness burn on right great toe, 0.5 cm linear erythema patch on anterior aspect of right ankle, 0.2 x 0.2 cm blister on left foot 2nd toe, 2 x 2 cm erythema noted on top of right left toe. Surface area less than 1%. Initial Vital Signs Initial Vital Signs: Vital Signs Temperature 98.5 F 07/22/20 15:48 Pulse Rate 97 H 07/22/20 15:48 Respiratory Rate 24 07/22/20 15:48 Blood Pressure 135/93 H 07/22/20 15:48 Pulse Oximetry 97 07/22/20 15:48 <Osman Kaur DO - Last Filed: 07/23/20 23:43> Initial Vital Signs Initial Vital Signs: Vital Signs Temperature 98.5 F 07/22/20 15:48 Pulse Rate 97 H 07/22/20 15:48 Respiratory Rate 24 07/22/20 15:48 Blood Pressure 135/93 H 07/22/20 15:48 Pulse Oximetry 97 07/22/20 15:48 Scores <MCKINLEY Mazariegos - Last Filed: 07/22/20 20:55> GCS Leida coma scale eye opening: Spontaneous [place] coma scale verbal response: Orientated Le[place] coma scale motor response: Obey commands [place] coma scale total score: 15 Course <MCKINLEY Mazariegos - Last Filed: 07/22/20 20:55> Orders Ordered: Discontinued Medications Hydrocodone Bitart/Acetaminophen ([place] 5/325) 2 tab PO NOW ONE Stop: 07/22/20 16:11 Last Admin: 07/22/20 16:15 Dose: 2 tab Documented by: EVERETT Hydrocodone Bitart/Acetaminophen (Vicodin 5/325 Prepack) 1 bottle MISC SEEINSTR ONE Stop: 07/22/20 18:54 Last Admin: 07/22/20 19:12 Dose: 1 bottle Documented by: BALDOMERO Bacitracin (Bacitracin) 5 applic TOP NOW ONE Stop: 07/22/20 18:33 Last Admin: 07/22/20 18:43 Dose: 5 applic Documented by: DANIEL Diphtheria/Tetanus/Acell Pertussis (Adacel) 0.5 ml IM .ONCE ONE Stop: 07/22/20 16:11 Last Admin: 07/22/20 16:15 Dose: 0.5 ml Documented by: EVERETT Ketorolac Tromethamine (Toradol) 30 mg IM NOW ONE Stop: 07/22/20 17:44 Last Admin: 07/22/20 18:02 Dose: Not Given Documented by: DANIEL Vital Signs Vital signs: Vital Signs - 8 hr 07/22/20 15:48 Temperature 98.5 F Pulse Rate 97 H Respiratory Rate 24 Blood Pressure 135/93 H Pulse Oximetry 97 <Osman Kaur DO - Last Filed: 07/23/20 23:43> Orders Ordered: Discontinued Medications Hydrocodone Bitart/Acetaminophen ([place] 5/325) 2 tab PO NOW ONE Stop: 07/22/20 16:11 Last Admin: 07/22/20 16:15 Dose: 2 tab Documented by: EVERETT Hydrocodone Bitart/Acetaminophen (Vicodin 5/325 Prepack) 1 bottle MISC SEEINSTR ONE Stop: 07/22/20 18:54 Last Admin: 07/22/20 19:12 Dose: 1 bottle Documented by: BALDOMERO Bacitracin (Bacitracin) 5 applic TOP NOW ONE Stop: 07/22/20 18:33 Last Admin: 07/22/20 18:43 Dose: 5 applic Documented by: DANIEL Diphtheria/Tetanus/Acell Pertussis (Adacel) 0.5 ml IM .ONCE ONE Stop: 07/22/20 16:11 Last Admin: 07/22/20 16:15 Dose: 0.5 ml Documented by: EVERETT Ketorolac Tromethamine (Toradol) 30 mg IM NOW ONE Stop: 07/22/20 17:44 Last Admin: 07/22/20 18:02 Dose: Not Given Documented by: DANIEL Vital Signs Vital signs: Vital Signs - 8 hr 07/22/20 15:48 Temperature 98.5 F Pulse Rate 97 H Respiratory Rate 24 Blood Pressure 135/93 H Pulse Oximetry 97 MDM - Burn/Smoke Inhalation <MCKINLEY Mazariegos - Last Filed: 07/22/20 20:55> MDM Narrative Medical decision making narrative: The patient is a 30-year-old female who presents with a chief complaint of partial-thickness lamb to her bilateral lower extremities. She is noted to have small partial-thickness lamb with blistering. Her tetanus is up-to-date, she was given [place] for pain. I attempted to send pictures to [facility] by secure e-mail on department tablet, unfortunately the transfer center was unable to open the pictures. However I spoke with the burn physician, Dr. Jean, who stated that from what I described, the patient should follow-up in clinic as they are unable to viewed the images. Per his instructions, the lamb were debrided, washed with Hibiclens and dressed with bacitracin and Xeroform gauze. The patient is very comfortable doing these dressing changes once a day at home as she has experience doing so. I discussed at length monitoring for signs and symptoms of infection, washing her lamb every day, dressing with bacitracin and Xeroform gauze. Discussed watching lamb at 305 for lower extremity stretches. Patient states understanding of return precautions, follow-up care with [facility], and come back to the emergency department for any acute concerns. Discussed keeping them clean. Patient should hear from Burn Center early this week, provided phone number so patient can call in case she does not hear from them. Also gave contact information to the [facility] health human resources safety manager. Patient has no questions or concerns upon discharge and states understanding of return precautions as well as follow-up care. Discharge Plan Departure Patient Disposition: Home Clinical Impression: Partial thickness burn Discharge Date/Time: 07/22/20 19:15 Instructions: DI for Lamb Activity Restrictions/Additional Instructions: Thank you for trusting us with your care today. I am sorry that you are injured and wish you a speedy recovery. Today we updated your tetanus and provided burn care. Please wash your lamb every day. Please dressed them with bacitracin every day and cover with Xeroform gauze Please monitor for signs and symptoms of infection including extending redness, purulent drainage etcetera. Please follow up with these occur. Please expect a phone call from the burn clinic at [place]. If you do not hear from them please reach out at [phone] Please come back to the emergency department for any acute concerns. I have given you a work note for tomorrow off. If your dressings gets stuck, you can wet them to get them off. You can watch lamb 305 on you tube for some stretches for lower extremity lamb I have given you a prescription of a narcotic for pain. I sent this to [facility]. Be aware that this can be constipating and sedating. I encouraged taking with a stool softener, pushing fluids and fiber. Do not take and drive, operate heavy machinery, etc. Do not combine it with any other sedating substances such as alcohol. The combination of narcotics and alcohol and/or other sedatives can be lethal. Please be aware that we do not provide refills of controlled substances in the emergency department. Please follow up with her primary care provider. Please also follow-up with primary care provider. I have given you contact information to the [facility] human resources safety manager in case you need local resources. Prescriptions: New hydrocodone-acetaminophen 5-325 mg tablet 1 tab PO Q4-6H PRN (Reason: pain) Qty: 14 RF: 0 No Action ondansetron 4 mg tablet,disintegrating 4 mg PO Q8H PRN (Reason: nausea and vomiting) Qty: 10 RF: 0 medroxyprogesterone [Depo-Provera] 150 mg/mL suspension 150 mg IM [id number] RF: 0 fluconazole [Diflucan] 150 mg tablet 150 mg PO ONCE Qty: 1 RF: 0 oxycodone-acetaminophen [Percocet] 5-325 mg tablet 1 tab PO Q4-6H PRN (Reason: pain) Qty: 14 RF: 0 Referrals: [facility] [Outside] Dejah Flores MD [Primary Care Provider] - <Osman Kaur DO - Last Filed: 07/23/20 23:43> Cosign ED Attending Kaityature Attestation: I was immediately available in the department for consultation. This documentation has been reviewed and I agree with assessment and plan. Supervised by Osman Kaur DO
== END 2020-07-22 19:15 | disposition home or self-care (01) ==
PROVIDERS: Emergency Provider Nurse Practitioner Family; PCP Family Medicine
DX: T25.022A Burn of unspecified degree of left foot, initial encounter (principal); T25.021A Burn of unspecified degree of right foot, initial encounter; X19.XXXA Contact with other heat and hot substances, initial encounter; Z23 Encounter for immunization; Y99.0 Civilian activity done for income or pay
CPT/HCPCS: 90471; 96372; 99283; 90715

== ENCOUNTER 2020-07-28 15:17 | Emergency (ER) | payer OTHER, MEDICAID, SELFPAY ==
--- NOTE | 2020-07-28 15:20 | ED.SKABFB ---
HPI - Skin/Abscess/Foreign Bdy General Chief complaint: Extremity Injury, Lower Stated complaint: burn on feet from work injury Time Seen by Provider: 07/28/20 15:19 Source: patient Mode of arrival: Ambulatory Limitations: no limitations History of Present Illness HPI narrative: 30F smoker returns for evaluation of lamb on both great toes. She was working last week and burned her feet with hot grease while at work. She was seen and evaluated here and prescribed bacitracin and encouraged to follow up. She denies fever, chills, N/V or other. She decided to come back after she started having pain when trying to put her shoes on. She followed all instructions as given. MD complaint: other Onset (ago): day(s) Tetanus up to date: yes Location: LLE, L foot and R foot Severity: moderate Quality: burning and aching Pain Consistency: constant Relieving factors: none Exacerbating factors: palpation and movement Context: none Associated symptoms: denies other symptoms Treatments prior to arrival: bandages Related Data Home Medications Medication Instructions Recorded Confirmed medroxyprogesterone 150 mg/mL 150 mg IM [id number] 04/07/18 10/12/19 intramuscular suspension Previous Rx's Medication Instructions Recorded ondansetron 4 mg disintegrating 4 mg PO Q8H PRN #10 tab 09/23/19 tablet fluconazole 150 mg tablet 150 mg PO ONCE #1 tab 10/12/19 oxycodone-acetaminophen 5 mg-325 1 tab PO Q4-6H PRN #14 tab 10/12/19 mg tablet hydrocodone-acetaminophen 1 tab PO Q4-6H PRN #14 tab 07/22/20 Allergies Allergy/AdvReac Type Severity Reaction Status Date / Time doxycycline AdvReac n/v Verified 10/12/19 12:25 guaifenesin [From Mucinex] AdvReac n/v Verified 10/12/19 12:25 trazodone AdvReac mental Verified 10/12/19 12:25 status changes Review of Systems Constitutional Constitutional: Denies chills, Denies fatigue, Denies fever(s), Denies frequent falls, Denies lethargy and Denies weakness Eyes Eyes: Denies change in vision, Denies eye discharge, Denies irritation and Denies loss of vision ENT Ears, Nose, Mouth, and Throat: Denies change in voice, Denies dizziness, Denies neck pain, Denies sore throat and Denies throat swelling Cardiovascular Cardiovascular: Denies chest pain, Denies irregular heart rhythm, Denies lightheadedness, Denies palpitations, Denies dyspnea, Denies dyspnea on exertion and Denies orthopnea Respiratory Respiratory: Denies cough, Denies dyspnea, Denies dyspnea on exertion and Denies wheezing Gastrointestinal Gastrointestinal: Denies abdominal pain, Denies change in bowel habits, Denies diarrhea, Denies nausea and Denies vomiting Musculoskeletal Musculoskeletal: Denies neck pain and Denies numbness Integumentary/Breasts Skin/Breast: Denies pruritus, Denies erythema, Denies rash, Reports skin pain and Denies wounds Comments: burn Neurologic Neurologic: Denies behavioral changes, Denies confusion, Denies dizziness, Denies frequent falls, Denies loss of vision, Denies numbness and Denies weakness Psychiatric Psychiatric: Denies anxiety, Denies behavioral changes, Denies confusion, Denies depression, Denies homicidal ideation and Denies suicidal ideation Endocrine Endocrine: Denies fatigue, Denies flushing and Denies palpitations Hematologic/Lymphatic Hematologic/Lymphatic: Denies easy bruising Allergic/Immunologic Allergic/Immunologic: Denies urticaria, Denies throat swelling and Denies wheezing Patient History Medical History Dyspareunia (Acute) Dysplasia of cervix, low grade (BOBBI 1) (Acute) Endometriosis (Acute) Ovarian cyst (Acute) Pelvic pain (Acute) Surgical History H/O laparoscopy (Acute ~09/22/19) History of colposcopy (Acute 04/07/18) S/P wisdom tooth extraction (Resolved) Social History Smoking Status: Current every day smoker alcohol intake: current Smoking Status: Current every day smoker alcohol intake frequency: other Substance Use Type: marijuana Exam Narrative Exam Narrative: GEN: AOx3 and in mild distress EYES: Pupils are equal, round, and reactive to light and accommodation. Extraoccular muscles are intact bilaterally. There is no subconjunctival hemorrhage or exudate. CHEST: Lungs are clear to auscultation bilaterally and free of wheezes, rales, or rhonchi. Heart rate is regular rhythm, there are no murmurs, clicks, rubs, or gallops. There is no chest wall tenderness. ABD: Abdomen is soft and nontender. There is no guarding or rebound. Bowel sounds are normal in all 4 quadrants. There is no mass or organomegaly. EXT: Full painless ROM of all extremities with no loss of sensation or strength. SKIN: skin on dorsum of bilateral great toes erythematous with previously unroofed superficial partial thickness lamb only. Not circumferential. No evidence of infection. Otherwise warm, pink, and dry. No erythema or rash Initial Vital Signs Initial Vital Signs: Vital Signs Temperature 98.1 F 07/28/20 16:08 Pulse Rate 77 07/28/20 16:08 Respiratory Rate 18 07/28/20 16:08 Blood Pressure 143/76 H 07/28/20 16:08 Pulse Oximetry 99 07/28/20 16:08 Course Orders Ordered: Discontinued Medications Bacitracin (Bacitracin) 1 applic TOP NOW ONE Stop: 07/28/20 15:54 Last Admin: 07/28/20 16:00 Dose: 1 applic Documented by: CYDNEY Mupirocin (Bactroban Oint) 1 applic TOP BID JING Vital Signs Vital signs: Vital Signs - 8 hr 07/28/20 16:08 Temperature 98.1 F Pulse Rate 77 Respiratory Rate 18 Blood Pressure 143/76 H Pulse Oximetry 99 Discharge Plan Departure Patient Disposition: Home Clinical Impression: Burn of foot, right, second degree Qualifiers: Encounter type: initial encounter Qualified Code(s): T25.221A - Burn of second degree of right foot, initial encounter Burn of foot, left, second degree Qualifiers: Encounter type: subsequent encounter Qualified Code(s): T25.222D - Burn of second degree of left foot, subsequent encounter Discharge Date/Time: 07/28/20 16:09 Instructions: DI for Lamb Activity Restrictions/Additional Instructions: *You have been diagnosed with [healing lamb to right and left foot] *What to do: *Take medications as directed *Follow up with your primary care provider in 2-3 days, call for an appointment. Let them know you were seen in the Emergency Department and that we ask that you be seen in follow up *Return to ER if you should have any new, worsening or concerning symptoms Prescriptions: No Action ondansetron 4 mg tablet,disintegrating 4 mg PO Q8H PRN (Reason: nausea and vomiting) Qty: 10 RF: 0 medroxyprogesterone [Depo-Provera] 150 mg/mL suspension 150 mg IM [id number] RF: 0 fluconazole [Diflucan] 150 mg tablet 150 mg PO ONCE Qty: 1 RF: 0 oxycodone-acetaminophen [Percocet] 5-325 mg tablet 1 tab PO Q4-6H PRN (Reason: pain) Qty: 14 RF: 0 hydrocodone-acetaminophen 5-325 mg tablet 1 tab PO Q4-6H PRN (Reason: pain) Qty: 14 RF: 0 Referrals: [facility] [Outside] Dejah Flores MD [Primary Care Provider] - Stand Alone Forms: Work Release Note
[2020-07-28] MEDS: BACITRACIN OINT 0.9 GM PCKT 1 APPLIC TOP (16:00)
[2020-07-28 16:08] VITALS: BP 143/76; PULSE 77; RESP 18; TEMP 36.7; O2SAT 99
== END 2020-07-28 16:09 | disposition home or self-care (01) ==
PROVIDERS: Emergency Provider Emergency Medicine; PCP Family Medicine
DX: T25.221A Burn of second degree of right foot, initial encounter (principal); T25.222A Burn of second degree of left foot, initial encounter; X10.2XXA Contact with fats and cooking oils, initial encounter; Y99.0 Civilian activity done for income or pay
CPT/HCPCS: 99282

== ENCOUNTER 2020-08-17 05:06 | Emergency (ER) | payer OTHER, MEDICAID, SELFPAY ==
--- NOTE | 2020-08-17 05:13 | DI.CT.S_ITS ---
PROCEDURE: CT KIDNEY URETER BLADDER (KUB) INDICATIONS: acute severe Left flank, left lower quadrant pain TECHNIQUE: Noncontrast 5 mm thick sections acquired from the diaphragms to the symphysis. 5 mm thick coronal and sagittal reformats were then performed. For radiation dose reduction, the following was used: automated exposure control, adjustment of mA and/or kV according to patient size. COMPARISON: [facility], CT, ABD/PELVIS W/CON (PNL), 07/27/2014, 4:47. , CT, CT KIDNEY URETER BLADDER (KUB), 07/28/2019, 18:36. FINDINGS: Image quality: Excellent. Lung bases: Within the right lower lobe, there is a partially visualized nodule on series 3, image 1 measuring up to 3 mm which appears similar in size to the 07/27/2014 study. There is minimal scarring in the left lower lobe. Heart size is normal. Urinary system: There is a small 2 mm stone within the proximal left ureter with mild left hydroureteronephrosis . There is associated minimal perinephric and periureteral fat stranding. No additional renal stones identified. No right hydronephrosis. Right ureter is nondistended. Bladder wall thickness is normal; no calcified bladder stones. Other solid organs: Noncontrast evaluation of the liver demonstrates no focal hepatic lesions. Gallbladder appears within normal limits without calcified gallstones. Pancreas is normal in contours without peripancreatic fat stranding or fluid collections. Spleen is normal in size. No adrenal nodules. Peritoneum and bowel: Unenhanced bowel loops demonstrate normal wall thickness and caliber. The appendix is normal in appearance. No free fluid or air. Nodes and vessels: No retroperitoneal or mesenteric adenopathy by size criteria. Aorta and inferior vena cava are normal in caliber. Abdominal wall: No ventral hernias. Pelvis: No free pelvic fluid. No inguinal hernias or adenopathy. Bones: No suspicious bony lesions. No vertebral body compression fractures. IMPRESSION: 1. Small obstructing 2 mm urinary stone within the proximal left ureter associated with mild left hydroureteronephrosis. Concordant with preliminary interpretation. Dictated by: Shashi Hoyt M.D. on 08/17/2020 at 8:04 Approved by: Shashi Hoyt M.D. on 08/17/2020 at 8:11
--- NOTE | 2020-08-17 05:16 | ED.ABDPAIN ---
HPI - Abdominal Pain <Silvia Cisneros MD - Last Filed: 08/18/20 01:54> General Chief Complaint: Abdominal Pain Stated Complaint: abd pain, nausea/vomiting Time Seen by Provider: 08/17/20 05:08 History of Present Illness HPI narrative: 30-year-old woman with a history of anxiety and recent burn to the tops of her feet presents with severe acute sudden onset left flank/left lower quadrant pain. She has been feeling well and was off work recently because of the lamb to her feet. Was sitting in her car waiting to return to work for the 1st day this morning when she had 10/10 severe left flank left lower quadrant pain that left her nauseated and crying secondary to the pain. She describes it as sharp stabbing type pain. She had a bowel movement that did not relieve the pain at all. She is able to void in that also does not relieve the pain. Related Data Home Medications Medication Instructions Recorded Confirmed medroxyprogesterone 150 mg/mL 150 mg IM [id number] 04/07/18 10/12/19 intramuscular suspension Previous Rx's Medication Instructions Recorded ondansetron 4 mg disintegrating 4 mg PO Q8H PRN #10 tab 09/23/19 tablet fluconazole 150 mg tablet 150 mg PO ONCE #1 tab 10/12/19 oxycodone-acetaminophen 5 mg-325 1 tab PO Q4-6H PRN #14 tab 10/12/19 mg tablet hydrocodone-acetaminophen 1 tab PO Q4-6H PRN #14 tab 07/22/20 fluconazole [Diflucan] 200 mg PO DAILY #1 tab 08/17/20 ondansetron 4 mg PO Q8H PRN #10 tab 08/17/20 oxycodone-acetaminophen [Endocet] 1 tab PO Q6H PRN #20 tab 08/17/20 sulfamethoxazole-trimethoprim 1 tab PO BID 7 Days #14 tab 08/17/20 [Bactrim DS] tamsulosin [Flomax] 0.4 mg PO DAILY #10 cap 08/17/20 Allergies Allergy/AdvReac Type Severity Reaction Status Date / Time doxycycline AdvReac n/v Verified 10/12/19 12:25 guaifenesin [From Mucinex] AdvReac n/v Verified 10/12/19 12:25 trazodone AdvReac mental Verified 10/12/19 12:25 status changes Review of Systems <Silvia Cisneros MD - Last Filed: 08/18/20 01:54> Review of Systems Narrative: Pertinent positive and negative findings as per HPI Remainder of review of systems is otherwise unremarkable for Constitutional: Fevers, chills, weakness ENT: No sore throat, neck pain, ear pain CV: Chest pain, palpitations, dyspnea on exertion Respiratory: Cough, wheeze, dyspnea MS: Muscle weakness, numbness, joint swelling or warmth Skin: Rashes, nonhealing lesions Neuro: Syncope, dizziness, tingling Patient History <Silvia Cisneros MD - Last Filed: 08/18/20 01:54> Medical History Dyspareunia (Acute) Dysplasia of cervix, low grade (BOBBI 1) (Acute) Endometriosis (Acute) Ovarian cyst (Acute) Pelvic pain (Acute) Surgical History H/O laparoscopy (Acute ~09/22/19) History of colposcopy (Acute 04/07/18) S/P wisdom tooth extraction (Resolved) Social History Smoking Status: Current every day smoker alcohol intake: current Smoking Status: Current every day smoker alcohol intake frequency: other Substance Use Type: marijuana Exam <Silvia Cisneros MD - Last Filed: 08/18/20 01:54> Narrative Exam Narrative: General: In significant distress secondary to pain but still Able to give a complete and coherent history. Well-nourished well-developed HEENT: Moist mucous membranes, normal sclera with reactive pupils, Respiratory: Lungs are clear to auscultation, no wheezing no rales no rhonchi. Full and symmetrical air movement Cardiac: Tachycardic but Regular rate and rhythm no murmurs no bruits Abdomen: Soft nontender to direct palpation without rebound or guarding, good bowel tones, right flank pain Skin: Warm and dry, no rashes Neurologic: Grossly neurologically intact with no obvious asymmetries or abnormalities Extremities: No trauma, well perfused Psych: Cooperative, appropriate insight and affect Initial Vital Signs Initial Vital Signs: Vital Signs Temperature 98.4 F 08/17/20 05:27 Pulse Rate 112 H 08/17/20 05:27 Respiratory Rate 20 08/17/20 05:27 Blood Pressure 178/112 H 08/17/20 05:27 Pulse Oximetry 96 08/17/20 05:27 <Ellen Burks DO - Last Filed: 08/17/20 08:40> Initial Vital Signs Initial Vital Signs: Vital Signs Temperature 98.4 F 08/17/20 05:27 Pulse Rate 112 H 08/17/20 05:27 Respiratory Rate 20 08/17/20 05:27 Blood Pressure 178/112 H 08/17/20 05:27 Pulse Oximetry 96 08/17/20 05:27 Course <Silvia Cisneros MD - Last Filed: 08/18/20 01:54> Orders Ordered: Discontinued Medications Hydromorphone HCl (Dilaudid) 0.5 mg IV Q15MIN PRN PRN Reason: Pain, Last Admin: 08/17/20 06:18 Dose: 0.5 mg Documented by: ALEJANDRO Hydromorphone HCl (Dilaudid) 1 mg IV NOW ONE Stop: 08/17/20 06:25 Last Admin: 08/17/20 06:29 Dose: 1 mg Documented by: ALEJANDRO Hydromorphone HCl (Dilaudid) 1 mg IV NOW ONE Stop: 08/17/20 06:51 Last Admin: 08/17/20 06:56 Dose: 1 mg Documented by: ERICKSON Sodium Chloride (Normal Saline 0.9%) 1,000 mls @ 1,000 mls/hr IV BOLUS ONE Stop: 08/17/20 06:11 Last Infusion: 08/17/20 07:23 Dose: 0 mls/hr Documented by: Admin: 08/17/20 05:43 Dose: 1,000 mls/hr Documented by: ERICKSON Lidocaine HCl 54 ml/ Sodium (Chloride) 104 mls @ 624 mls/hr IV NOW ONE Stop: 08/17/20 05:15 Last Admin: 08/17/20 05:44 Dose: Not Given Documented by: ERICKSON Lidocaine HCl 6.1 ml/ Sodium (Chloride) 56.1 mls @ 336.6 mls/hr IV NOW ONE Stop: 08/17/20 05:30 Last Infusion: 08/17/20 06:02 Dose: 0 mls/hr Documented by: Admin: 08/17/20 05:43 Dose: 336.6 mls/hr Documented by: ERICKSON Sodium Chloride (Normal Saline 0.9%) 1,000 mls @ 1,000 mls/hr IV BOLUS ONE Stop: 08/17/20 07:49 Last Infusion: 08/17/20 08:11 Dose: 0 mls/hr Documented by: Admin: 08/17/20 06:56 Dose: 1,000 mls/hr Documented by: ERICKSON Ketorolac Tromethamine (Toradol) 15 mg IV NOW ONE Stop: 08/17/20 05:13 Last Admin: 08/17/20 05:42 Dose: 15 mg Documented by: ERICKSON Ondansetron HCl (Zofran) 4 mg IV NOW ONE Stop: 08/17/20 05:13 Last Admin: 08/17/20 05:43 Dose: 4 mg Documented by: ERICKSON Tamsulosin HCl (Flomax) 0.4 mg PO NOW ONE Stop: 08/17/20 06:26 Last Admin: 08/17/20 06:29 Dose: 0.4 mg Documented by: ALEJANDRO Vital Signs Vital signs: Vital Signs - 8 hr 08/17/20 05:27 08/17/20 07:00 08/17/20 07:30 Temperature 98.4 F Pulse Rate 112 H 78 92 H Respiratory Rate 20 18 20 Blood Pressure 178/112 H 117/68 Pulse Oximetry 96 97 99 08/17/20 07:31 08/17/20 08:00 Temperature 98.6 F Pulse Rate 74 82 Respiratory Rate 13 Blood Pressure 156/72 H Pulse Oximetry 98 99 <Ellen Burks DO - Last Filed: 08/17/20 08:40> Orders Ordered: Discontinued Medications Hydromorphone HCl (Dilaudid) 0.5 mg IV Q15MIN PRN PRN Reason: Pain, Last Admin: 08/17/20 06:18 Dose: 0.5 mg Documented by: ALEJANDRO Hydromorphone HCl (Dilaudid) 1 mg IV NOW ONE Stop: 08/17/20 06:25 Last Admin: 08/17/20 06:29 Dose: 1 mg Documented by: ALEJANDRO Hydromorphone HCl (Dilaudid) 1 mg IV NOW ONE Stop: 08/17/20 06:51 Last Admin: 08/17/20 06:56 Dose: 1 mg Documented by: ERICKSON Sodium Chloride (Normal Saline 0.9%) 1,000 mls @ 1,000 mls/hr IV BOLUS ONE Stop: 08/17/20 06:11 Last Infusion: 08/17/20 07:23 Dose: 0 mls/hr Documented by: Admin: 08/17/20 05:43 Dose: 1,000 mls/hr Documented by: ERICKSON Lidocaine HCl 54 ml/ Sodium (Chloride) 104 mls @ 624 mls/hr IV NOW ONE Stop: 08/17/20 05:15 Last Admin: 08/17/20 05:44 Dose: Not Given Documented by: ERICKSON Lidocaine HCl 6.1 ml/ Sodium (Chloride) 56.1 mls @ 336.6 mls/hr IV NOW ONE Stop: 08/17/20 05:30 Last Infusion: 08/17/20 06:02 Dose: 0 mls/hr Documented by: Admin: 08/17/20 05:43 Dose: 336.6 mls/hr Documented by: ERICKSON Sodium Chloride (Normal Saline 0.9%) 1,000 mls @ 1,000 mls/hr IV BOLUS ONE Stop: 08/17/20 07:49 Last Infusion: 08/17/20 08:11 Dose: 0 mls/hr Documented by: Admin: 08/17/20 06:56 Dose: 1,000 mls/hr Documented by: ERICKSON Ketorolac Tromethamine (Toradol) 15 mg IV NOW ONE Stop: 08/17/20 05:13 Last Admin: 08/17/20 05:42 Dose: 15 mg Documented by: ERICKSON Ondansetron HCl (Zofran) 4 mg IV NOW ONE Stop: 08/17/20 05:13 Last Admin: 08/17/20 05:43 Dose: 4 mg Documented by: ERICKSON Tamsulosin HCl (Flomax) 0.4 mg PO NOW ONE Stop: 08/17/20 06:26 Last Admin: 08/17/20 06:29 Dose: 0.4 mg Documented by: ALEJANDRO Vital Signs Vital signs: Vital Signs - 8 hr 08/17/20 05:27 08/17/20 07:00 08/17/20 07:30 Temperature 98.4 F Pulse Rate 112 H 78 92 H Respiratory Rate 20 18 20 Blood Pressure 178/112 H 117/68 Pulse Oximetry 96 97 99 08/17/20 07:31 08/17/20 08:00 Temperature 98.6 F Pulse Rate 74 82 Respiratory Rate 13 Blood Pressure 156/72 H Pulse Oximetry 98 99 MDM - Abdominal Pain <Silvia Cisneros MD - Last Filed: 08/18/20 01:54> Medical Records Attestation: I reviewed the patient's medical records. Lab Data Attestation: I reviewed the patient's lab results. Result diagrams: 08/17/20 05:15 08/17/20 05:15 Labs: Lab Results 08/17/20 08/17/20 08/17/20 Range/Units 05:15 05:15 06:20 WBC 14.3 H (4.5-11.0) X10^3/uL RBC 4.87 (4.0-5.2) X10^6/uL Hgb 15.6 (12.0-16.0) g/dL Hct 45.6 (36-46) % MCV 93.8 (80-100) fL MCH 32.1 (26-34) PG MCHC 34.2 (30-36) % RDW 13.4 (11.6-14.8) % Plt Count 216 (150-400) X10^3/uL Neut % (Auto) 48.6 L (50-75) % Lymph % (Auto) 41.7 H (25-40) % [place] % (Auto) 5.9 (3-14) % Eos % (Auto) 3.1 (2-4) % Baso % (Auto) 0.7 (0-2) % Neut # (Auto) 7000 (5702-2988) /uL Lymph # (Auto) 6000 H (2129-0683) /uL [place] # (Auto) 800 (0-900) /uL Eos # (Auto) 400 (0-450) /uL Baso # (Auto) 100 (0-100) /uL Plt Morphology Comment 2+ large platelets RBC Morphology Normal morphology Sodium 139 (137-145) mmol/L Potassium 4.2 (3.4-5.1) mmol/L Chloride 110 H (98-107) mmol/L Carbon Dioxide 21 L (22-32) mmol/L BUN 11 (7-17) mg/dL Creatinine 0.65 (0.52-1.04) mg/dL Estimated GFR > 60.0 (>60) mL/min BUN/Creatinine Ratio 16.9 (6-22) Glucose 114 H (70-100) mg/dL Calcium 9.5 (8.4-10.2) mg/dL Total Bilirubin 0.6 (0.2-1.3) mg/dL AST 35 (14-36) IU/L ALT 45 H (<35) IU/L Alkaline Phosphatase 87 (38-126) U/L Total Protein 8.0 (6.3-8.2) g/dL Albumin 4.7 (3.5-5.0) g/dL Globulin 3.3 (1.7-4.1) g/dL Albumin/Globulin Ratio 1.4 (1.0-2.8) Lipase 144 (23-300) U/L Urine Color Brown Urine Appearance Turbid Urine pH 6.5 (4.5-8.0) Ur Specific [place] >=1.030 H (1.000-1.035) Urine Protein 2+ H (Negative) Urine Glucose (UA) Trace H (Negative) g/dL Urine Ketones Trace H (NEGATIVE) Urine Occult Blood 3+ H (Negative) Urine Nitrate Negative (Negative) Urine Bilirubin 1+ H (NEGATIVE) Ur Bilirubin Confirm Positive H (Negative) Urine Urobilinogen 0.2 (0.2) E.U./dL Ur Leukocyte Esterase Negative (NEGATIVE) Urine RBC 30-100/hpf H (0-5/HPF) Urine WBC 0-1/hpf (0-5/HPF) Ur Squamous Epith Cells 10-30 /hpf H (0-5/HPF) Calcium Oxalate Crystal Few H Urine Bacteria Many (>30) H (None) Ur Culture Indicated? Cult not indicated Point of care testing: Point of Care Testing Test Results Negative Imaging Data CT scan - abdomen/pelvis: Radiologist's Impression: 1.5 mm stone in the proximal left ureter with mild left hydro ureteral nephrosis Dr Serena Decker, DO [facility] Narrative Medical decision making narrative: 30-year-old woman presents with severe acute left-sided flank pain and a 1.5 mm stone in the proximal left ureter. With fluid Toradol and lidocaine pain is minimally controlled. A 0.5 mg Dilaudid and she continues to be quivering to control pain. Will hold mg will be administered along with Flomax. Once pain is better controlled she will be able to be discharged but currently she clearly is in significant distress. Pain somewhat better after mg of Dilaudid but still quivering due to the severity of pain. Do a 2nd L returns and suggests significantly concentrated urine with a number of red blood cells and squamous cells. It does not appear to be infected. Once pain is better controlled switch to Percocet and anticipate discharge home. Findings were explained and questions were answered. <Ellen Burks DO - Last Filed: 08/17/20 08:40> Lab Data Labs: Lab Results 08/17/20 08/17/20 08/17/20 Range/Units 05:15 05:15 06:20 WBC 14.3 H (4.5-11.0) X10^3/uL RBC 4.87 (4.0-5.2) X10^6/uL Hgb 15.6 (12.0-16.0) g/dL Hct 45.6 (36-46) % MCV 93.8 (80-100) fL MCH 32.1 (26-34) PG MCHC 34.2 (30-36) % RDW 13.4 (11.6-14.8) % Plt Count 216 (150-400) X10^3/uL Neut % (Auto) 48.6 L (50-75) % Lymph % (Auto) 41.7 H (25-40) % [place] % (Auto) 5.9 (3-14) % Eos % (Auto) 3.1 (2-4) % Baso % (Auto) 0.7 (0-2) % Neut # (Auto) 7000 (5368-0425) /uL Lymph # (Auto) 6000 H (5278-7328) /uL [place] # (Auto) 800 (0-900) /uL Eos # (Auto) 400 (0-450) /uL Baso # (Auto) 100 (0-100) /uL Plt Morphology Comment 2+ large platelets RBC Morphology Normal morphology Sodium 139 (137-145) mmol/L Potassium 4.2 (3.4-5.1) mmol/L Chloride 110 H (98-107) mmol/L Carbon Dioxide 21 L (22-32) mmol/L BUN 11 (7-17) mg/dL Creatinine 0.65 (0.52-1.04) mg/dL Estimated GFR > 60.0 (>60) mL/min BUN/Creatinine Ratio 16.9 (6-22) Glucose 114 H (70-100) mg/dL Calcium 9.5 (8.4-10.2) mg/dL Total Bilirubin 0.6 (0.2-1.3) mg/dL AST 35 (14-36) IU/L ALT 45 H (<35) IU/L Alkaline Phosphatase 87 (38-126) U/L Total Protein 8.0 (6.3-8.2) g/dL Albumin 4.7 (3.5-5.0) g/dL Globulin 3.3 (1.7-4.1) g/dL Albumin/Globulin Ratio 1.4 (1.0-2.8) Lipase 144 (23-300) U/L Urine Color Brown Urine Appearance Turbid Urine pH 6.5 (4.5-8.0) Ur Specific [place] >=1.030 H (1.000-1.035) Urine Protein 2+ H (Negative) Urine Glucose (UA) Trace H (Negative) g/dL Urine Ketones Trace H (NEGATIVE) Urine Occult Blood 3+ H (Negative) Urine Nitrate Negative (Negative) Urine Bilirubin 1+ H (NEGATIVE) Ur Bilirubin Confirm Positive H (Negative) Urine Urobilinogen 0.2 (0.2) E.U./dL Ur Leukocyte Esterase Negative (NEGATIVE) Urine RBC 30-100/hpf H (0-5/HPF) Urine WBC 0-1/hpf (0-5/HPF) Ur Squamous Epith Cells 10-30 /hpf H (0-5/HPF) Calcium Oxalate Crystal Few H Urine Bacteria Many (>30) H (None) Ur Culture Indicated? Cult not indicated Point of care testing: Point of Care Testing Test Results Negative MDM Narrative Medical decision making narrative: Patient is signed out to me by Dr. Cisneros. Patient's pain is much better controlled. No sign of UTI no antibiotics indicated at time. Requesting work note and Zofran. Discharge Plan Departure Patient Disposition: Home Clinical Impression: Ureterolithiasis Discharge Date/Time: 08/17/20 08:20 Instructions: DI for Kidney Stones Activity Restrictions/Additional Instructions: Thank you for coming in today You do have a 1.5 mm kidney stone on the left side with no obvious other stones being formed right now. There is no evidence of acute infection or renal failure. This should pass by itself. I have given you pain medication to use. Using 400 mg of ibuprofen (2 [id number] pills) and 1 Tylenol every 6 hours can be very helpful in controlling pain. For severe pain 400 mg of ibuprofen and 1 Percocet would be appropriate. Tamsulosin/Flomax can help encourage us stone to pass. I will give you a strainer to use. Please continue the tamsulosin until you pass the stone. Prescription for Endocet and tamsulosin have been electronically transmitted to [facility] for you today If you develop a fever or worsening pain please return to the emergency department. Please follow-up with your primary care physician regarding this kidney stone. Prescriptions: New oxycodone-acetaminophen [Endocet] 5-325 mg tablet 1 tab PO Q6H PRN (Reason: pain) Qty: 20 RF: 0 tamsulosin [Flomax] 0.4 mg capsule 0.4 mg PO DAILY Qty: 10 RF: 0 sulfamethoxazole-trimethoprim [Bactrim DS] 800-160 mg tablet 1 tab PO BID 7 Days Qty: 14 RF: 0 ondansetron 4 mg tablet,disintegrating 4 mg PO Q8H PRN (Reason: nausea and vomiting) Qty: 10 RF: 0 fluconazole [Diflucan] 200 mg tablet 200 mg PO DAILY Qty: 1 RF: 0 No Action ondansetron 4 mg tablet,disintegrating 4 mg PO Q8H PRN (Reason: nausea and vomiting) Qty: 10 RF: 0 medroxyprogesterone [Depo-Provera] 150 mg/mL suspension 150 mg IM [id number] RF: 0 fluconazole [Diflucan] 150 mg tablet 150 mg PO ONCE Qty: 1 RF: 0 oxycodone-acetaminophen [Percocet] 5-325 mg tablet 1 tab PO Q4-6H PRN (Reason: pain) Qty: 14 RF: 0 hydrocodone-acetaminophen 5-325 mg tablet 1 tab PO Q4-6H PRN (Reason: pain) Qty: 14 RF: 0 Referrals: [facility] [Outside] Dejah Flores MD [Primary Care Provider] - Stand Alone Forms: Work Release Note
[2020-08-17 05:27] VITALS: BP 178/112; PULSE 112; RESP 20; TEMP 36.9; O2SAT 96; BMI 30.9
[2020-08-17 05:29] LABS: Basophils Absolute Auto 100 /uL (0-100); Basophils Percent Auto 0.7 % (0-2); Eosinophils Absolute Auto 400 /uL (0-450); Eosinophils Percent Auto 3.1 % (2-4); Hematocrit 45.6 % (36-46); Hemoglobin 15.6 g/dL (12.0-16.0); Lymphocytes Absolute Auto 6000 /uL (1100-4500); Lymphocytes Percent Auto 41.7 % (25-40); Mean Corpuscular HGB Conc 34.2 % (30-36); Mean Corpuscular Hemoglobin 32.1 PG (26-34); Mean Corpuscular Volume 93.8 fL (80-100); Monocytes Absolute Auto 800 /uL (0-900); Monocytes Percent Auto 5.9 % (3-14); Neutrophils Absolute Auto 7000 /uL (1500-7000); Neutrophils Percent Auto 48.6 % (50-75); Platelet Count 216 X10^3/uL (150-400); Red Blood Cell Count 4.87 X10^6/uL (4.0-5.2); Red Cell Distribution Width 13.4 % (11.6-14.8); White Blood Cell Count 14.3 X10^3/uL (4.5-11.0)
[2020-08-17 05:31] LABS: Add Manual Diff / Slide Review SLIDE REVIEW
[2020-08-17 05:36] LABS: Alanine Aminotransferase 45 IU/L (<35); Albumin 4.7 g/dL (3.5-5.0); Albumin Globulin Ratio 1.4 (1.0-2.8); Alkaline Phosphatase 87 U/L (38-126); Aspartate Aminotransferase 35 IU/L (14-36); BUN Creatinine Ratio 16.9 (6-22); Bilirubin Total 0.6 mg/dL (0.2-1.3); Blood Urea Nitrogen 11 mg/dL (7-17); Calcium 9.5 mg/dL (8.4-10.2); Carbon Dioxide 21 mmol/L (22-32); Chloride 110 mmol/L (98-107); Estimated Glomerular Filt Rate > 60.0 mL/min (>60); Globulin 3.3 g/dL (1.7-4.1); Glucose 114 mg/dL (70-100); HEMOLYSIS 22 (0-50); Lipase 144 U/L (23-300); Potassium 4.2 mmol/L (3.4-5.1); Sodium 139 mmol/L (137-145)
[2020-08-17] MEDS: KETOROLAC 60 MG/2 ML VIAL 15 MG IV (05:42)
[2020-08-17] MEDS: ONDANSETRON 4 MG/2 ML INJ IV (05:43)
[2020-08-17] MEDS: LIDOCAINE 2% 6.1 ML in SODIUM CHLORIDE 0.9% 50 ML 336.6 ML IV (05:43)
[2020-08-17] MEDS: SODIUM CHLORIDE 0.9% 1,000 ML 1000 ML IV ×2 (05:43→06:56)
[2020-08-17 05:50] LABS: RBC Morphology Normal Morphology
[2020-08-17 05:51] LABS: Platelet Morphology Comment 2+ LARGE PLATELETS
[2020-08-17] MEDS: HYDROMORPHONE 0.5 MG INJ IV (06:18)
[2020-08-17 06:29] LABS: Appearance Urine UA TURBID; Color Urine UA BROWN; Glucose Urine UA TRACE g/dL (Negative); Ketones Urine UA TRACE (NEGATIVE); Leukocyte Esterase Urine UA NEGATIVE (NEGATIVE); Nitrite Urine UA NEGATIVE (Negative); Occult Blood Urine UA 3+ (Negative); Protein Urine UA 2+ (Negative); Specific Gravity Urine UA >=1.030 (1.000-1.035); Urobilinogen Urine UA 0.2 E.U./dL (0.2); pH Urine UA 6.5 (4.5-8.0)
[2020-08-17] MEDS: TAMSULOSIN 0.4 MG CAPSULE PO (06:29)
[2020-08-17] MEDS: HYDROMORPHONE 1 MG INJ IV ×2 (06:29→06:56)
[2020-08-17 06:31] LABS: Bilirubin Urine UA 1+ (NEGATIVE)
[2020-08-17 06:32] LABS: Ictotest Urine Positive (Negative)
[2020-08-17 06:36] LABS: RBC Urine 30-100/HPF (0-5/HPF)
[2020-08-17 06:37] LABS: Bacteria Urine Many (>30); Calcium Oxalate Crystals Urine Few; Culture Indicated Urine Cult Not Indicated; Squamous Epithelial Cell Urine 10-30 /HPF (0-5/HPF); WBC Urine 0-1/HPF (0-5/HPF)
[2020-08-17 07:00] VITALS: BP 117/68; PULSE 78; RESP 18; O2SAT 97
[2020-08-17 07:30] VITALS: PULSE 92; RESP 20; O2SAT 99
[2020-08-17 07:31] VITALS: BP 156/72; PULSE 74; RESP 13; O2SAT 98
[2020-08-17 08:00] VITALS: PULSE 82; TEMP 37; O2SAT 99
== END 2020-08-17 08:20 | disposition home or self-care (01) ==
PROVIDERS: Emergency Medicine; Emergency Provider Emergency Medicine; PCP Family Medicine
DX: N20.2 Calculus of kidney with calculus of ureter (principal); R11.0 Nausea
CPT/HCPCS: 36415; 74176; 80053; 81001; 81025; 83690; 85025; 96361; 96365; 96375; 96376; 99284; J1170; J1885; J2405

== ENCOUNTER → 2020-11-15 10:25 | Outpatient (CLI) | payer OTHER, MEDICAID, SELFPAY ==
[2020-11-15 10:31] LABS: Bacteria Urine None Seen; RBC Urine None Seen (0-5/HPF)
[2020-11-15 12:27] LABS: Appearance Urine UA CLEAR; Bilirubin Urine UA NEGATIVE (NEGATIVE); Color Urine UA YELLOW; Glucose Urine UA NEGATIVE (Negative); Ketones Urine UA NEGATIVE (NEGATIVE); Leukocyte Esterase Urine UA NEGATIVE (NEGATIVE); Nitrite Urine UA NEGATIVE (Negative); Occult Blood Urine UA NEGATIVE (Negative); Protein Urine UA NEGATIVE (Negative); Urobilinogen Urine UA 0.2 E.U./dL (0.2)
[2020-11-15 12:32] LABS: Alanine Aminotransferase 28 IU/L (<35); Albumin 4.7 g/dL (3.5-5.0); Albumin Globulin Ratio 1.6 (1.0-2.8); Alkaline Phosphatase 75 U/L (38-126); Aspartate Aminotransferase 28 IU/L (14-36); Bilirubin Total 0.4 mg/dL (0.2-1.3); Blood Urea Nitrogen 13 mg/dL (7-17); Calcium 9.8 mg/dL (8.4-10.2); Carbon Dioxide 26 mmol/L (22-32); Chloride 107 mmol/L (98-107); Cholesterol 234 mg/dL (140-199); Estimated Glomerular Filt Rate > 60.0 mL/min (>60); Gamma Glutamyl Transpeptidase 21 U/L (12-43); Globulin 2.9 g/dL (1.7-4.1); Glucose 89 mg/dL (70-100); HDL Cholesterol 46 mg/dL (40-60); HEMOLYSIS < 15 (0-50); LDL Cholesterol Calculated 171 mg/dL (<100); Lipase 67 U/L (23-300); Potassium 4.1 mmol/L (3.4-5.1); Sodium 139 mmol/L (137-145); Total Protein 7.6 g/dL (6.3-8.2); Triglycerides 84 mg/dL (35-150)
[2020-11-15 12:40] LABS: Squamous Epithelial Cell Urine 1-5 /HPF (0-5/HPF); WBC Urine 0-1/HPF (0-5/HPF)
[2020-11-15 12:44] LABS: Amorphous Sediment Urine 1+; Culture Indicated Urine Cult Not Indicated; Mucus Urine 1+ (Negative)
[2020-11-15 13:47] LABS: TSH w/ Reflex to FT4 1.09 uIU/mL (0.47-4.68)
[2020-11-15 16:30] LABS: HIV 1 & 2 Ab/Ag 4th Gen Combo NEGATIVE (NEGATIVE)
[2020-11-16 14:53] LABS: Occult Blood 1 Negative (Negative)
[2020-11-16 16:35] LABS: Tissue Transglutaminase IgA <2 U/mL (0-3); Tissue Transglutaminase IgG <2 U/mL (0-5)
== END ==
PROVIDERS: PCP Student in an Organized Health Care Education/Training Program; Referring Provider Student in an Organized Health Care Education/Training Program; Visit Provider Student in an Organized Health Care Education/Training Program
DX: R10.9 Unspecified abdominal pain (principal); R19.7 Diarrhea, unspecified
CPT/HCPCS: 36415; 80053; 80061; 81001; 82270; 82977; 83516; 83690; 84443; 87177; 87389

== ENCOUNTER → 2020-11-16 09:11 | Outpatient (CLI) | payer OTHER, MEDICAID, SELFPAY ==
[2020-11-16 10:29] LABS: Add Manual Diff / Slide Review NO; Basophils Absolute Auto 0 /uL (0-100); Basophils Percent Auto 0.4 % (0-2); Eosinophils Absolute Auto 300 /uL (0-450); Eosinophils Percent Auto 2.8 % (2-4); Hematocrit 42.4 % (36-46); Hemoglobin 14.3 g/dL (12.0-16.0); Lymphocytes Absolute Auto 2900 /uL (1100-4500); Lymphocytes Percent Auto 32.2 % (25-40); Mean Corpuscular HGB Conc 33.7 % (30-36); Mean Corpuscular Hemoglobin 31.8 PG (26-34); Mean Corpuscular Volume 94.3 fL (80-100); Monocytes Absolute Auto 400 /uL (0-900); Monocytes Percent Auto 4.5 % (3-14); Neutrophils Absolute Auto 5400 /uL (1500-7000); Neutrophils Percent Auto 60.1 % (50-75); Platelet Count 181 X10^3/uL (150-400); Red Cell Distribution Width 13.3 % (11.6-14.8)
== END ==
PROVIDERS: PCP Student in an Organized Health Care Education/Training Program; Referring Provider Student in an Organized Health Care Education/Training Program; Visit Provider Student in an Organized Health Care Education/Training Program
DX: R10.9 Unspecified abdominal pain (principal)
CPT/HCPCS: 85025

== ENCOUNTER → 2020-11-17 09:25 | Outpatient (CLI) | payer OTHER, MEDICAID, SELFPAY ==
[2020-11-20 17:08] LABS: Calprotectin, Stool 22 ug/g (0-120)
[2020-11-21 14:36] LABS: H. Pylori Antigen Stool Negative (Negative)
== END ==
PROVIDERS: PCP Student in an Organized Health Care Education/Training Program; Referring Provider Student in an Organized Health Care Education/Training Program; Visit Provider Student in an Organized Health Care Education/Training Program
DX: K52.9 Noninfective gastroenteritis and colitis, unspecified (principal)
CPT/HCPCS: 83993; 87338

== ENCOUNTER 2021-02-09 12:42 | Emergency (ER) | payer OTHER, MEDICAID, SELFPAY ==
--- NOTE | 2021-02-09 13:00 | ED.ABDPAIN ---
HPI - Abdominal Pain General Chief Complaint: Abdominal Pain Stated Complaint: IBS pain Time Seen by Provider: 02/09/21 12:45 Source: patient Mode of arrival: Ambulatory Limitations: no limitations History of Present Illness HPI narrative: 30-year-old female daily smoker with history of anxiety and chronic abdominal problems presents with a chief complaint of 3 or 4 days of worsening abdominal cramping and diarrhea. She states that her abdomen cramps all over and seems to be made worse by motion and improves with rest. She denies any nausea or vomiting and states that she has diarrhea daily and has for quite some time. She denies any blood in her stool at any point time. She denies any fever or chills. She denies recent antibiotics, exposure to bad food or international travel. She has had GI referral in the past and had C diff 7 years ago. She denies dysuria, frequency or urgency. She denies any vaginal bleeding or discharge MD complaint: abdominal pain Onset (ago): day(s) Pain Consistency: constant and intermittent Location: diffuse Severity: moderate Quality: cramping Radiation: none Relieving factors: rest Exacerbating factors: movement Associated symptoms: nausea and diarrhea Related Data Home Medications Medication Instructions Recorded Confirmed medroxyprogesterone 150 mg/mL 150 mg IM [id number] 04/07/18 12/12/20 intramuscular suspension Previous Rx's Medication Instructions Recorded dicyclomine 10 mg/5 mL oral 10 mg PO TID PRN #473 ml 11/15/20 solution hydrocodone-acetaminophen 1 tab PO Q4-6H PRN #10 tab 02/09/21 Allergies Allergy/AdvReac Type Severity Reaction Status Date / Time doxycycline AdvReac n/v Verified 12/12/20 10:10 guaifenesin [From Mucinex] AdvReac n/v Verified 12/12/20 10:10 trazodone AdvReac mental Verified 12/12/20 10:10 status changes Review of Systems Constitutional Constitutional: Denies chills, Denies fatigue, Denies fever(s), Denies frequent falls, Denies lethargy and Denies weakness Eyes Eyes: Denies change in vision, Denies eye discharge, Denies irritation and Denies loss of vision ENT Ears, Nose, Mouth, and Throat: Denies change in voice, Denies dizziness, Denies neck pain, Denies sore throat and Denies throat swelling Cardiovascular Cardiovascular: Denies chest pain, Denies irregular heart rhythm, Denies lightheadedness, Denies palpitations, Denies dyspnea, Denies dyspnea on exertion and Denies orthopnea Respiratory Respiratory: Denies cough, Denies dyspnea, Denies dyspnea on exertion and Denies wheezing Gastrointestinal Gastrointestinal: Reports abdominal pain, Denies change in bowel habits, Reports diarrhea, Reports nausea and Denies vomiting Musculoskeletal Musculoskeletal: Denies neck pain and Denies numbness Integumentary/Breasts Skin/Breast: Denies pruritus, Denies erythema, Denies rash and Denies wounds Neurologic Neurologic: Denies behavioral changes, Denies confusion, Denies dizziness, Denies frequent falls, Denies loss of vision, Denies numbness and Denies weakness Psychiatric Psychiatric: Denies anxiety, Denies behavioral changes, Denies confusion, Denies depression, Denies homicidal ideation and Denies suicidal ideation Endocrine Endocrine: Denies fatigue, Denies flushing and Denies palpitations Hematologic/Lymphatic Hematologic/Lymphatic: Denies easy bruising Allergic/Immunologic Allergic/Immunologic: Denies urticaria, Denies throat swelling and Denies wheezing Patient History Medical History Dyspareunia Dysplasia of cervix, low grade (BOBBI 1) Endometriosis Ovarian cyst Surgical History H/O laparoscopy (~09/22/19) History of colposcopy (04/07/18) S/P wisdom tooth extraction Social History Smoking Status: Current every day smoker alcohol intake: current Smoking Status: Current every day smoker alcohol intake frequency: other Substance Use Type: marijuana Exam Narrative Exam Narrative: GENERAL: [30] year old patient appears stated age. Well-nourished, well-developed patient, in mild distress. Anxious and tearful HEAD: Atraumatic. Normocephalic. EYES: Pupils equal round and reactive. Extraocular motions intact. No scleral icterus. No injection or drainage. ENT: Nose without bleeding, purulent drainage. Throat without erythema, tonsillar hypertrophy or exudate. Airway patent. NECK: Trachea midline. Non tender CARDIOVASCULAR: Regular rate and rhythm without murmurs, gallops, or rubs. RESPIRATORY: Clear to auscultation. Breath sounds equal bilaterally. No wheezes, rales, or rhonchi. GASTROINTESTINAL: Abdomen soft, moderate generalized tenderness, nondistended. EXTREMITIES: No edema or joint tenderness. BACK: Nontender without deformity or crepitance. No flank tenderness. NEURO: AOx3. SKIN: No rash or erythema of visible areas Initial Vital Signs Initial Vital Signs: Vital Signs Temperature 98.6 F 02/09/21 13:07 Pulse Rate 75 02/09/21 13:07 Respiratory Rate 18 02/09/21 13:07 Blood Pressure 143/90 H 02/09/21 13:07 Pulse Oximetry 95 02/09/21 13:07 Course Orders Ordered: ED Orders 02/09/21 13:16 Complete Blood Count AUTO DIFF Stat Comprehensive Metabolic Panel Stat 02/09/21 15:23 CT abdomen pelvis w con Stat Discontinued Medications Hydrocodone Bitart/Acetaminophen (Hydrocodone/Acet 5/325 Prepack) 1 bottle MISC SEEINSTR ONE Stop: 02/09/21 16:38 Last Admin: 02/09/21 16:45 Dose: 1 bottle Documented by: GUNNER Sodium Chloride (Normal Saline 0.9%) 1,000 mls @ 1,000 mls/hr IV BOLUS ONE Stop: 02/09/21 14:04 Last Infusion: 02/09/21 14:38 Dose: 0 mls/hr Documented by: Admin: 02/09/21 13:33 Dose: 1,000 mls/hr Documented by: GUNNER Pantoprazole Sodium (Pantoprazole 40 Mg Vial) 40 mg IV NOW ONE Stop: 02/09/21 13:06 Last Admin: 02/09/21 13:33 Dose: 40 mg Documented by: GUNNER Vital Signs Vital signs: Vital Signs - 8 hr 02/09/21 16:57 Pulse Rate 82 Respiratory Rate 14 Blood Pressure 130/76 Pulse Oximetry 97 MDM - Abdominal Pain Lab Data Result diagrams: 02/09/21 13:16 02/09/21 13:16 Labs: Lab Results 02/09/21 02/09/21 Range/Units 13:16 13:16 WBC 17.6 H (4.5-11.0) X10^3/uL RBC 4.61 (4.0-5.2) X10^6/uL Hgb 14.9 (12.0-16.0) g/dL Hct 43.2 (36-46) % MCV 93.6 (80-100) fL MCH 32.3 (26-34) PG MCHC 34.5 (30-36) % RDW 13.5 (11.6-14.8) % Plt Count TNP Neut % (Auto) 73.4 (50-75) % Lymph % (Auto) 21.7 L (25-40) % [place] % (Auto) 3.7 (3-14) % Eos % (Auto) 0.4 L (2-4) % Baso % (Auto) 0.8 (0-2) % Neut # (Auto) 54758 H (2988-0459) /uL Lymph # (Auto) 3800 (4093-5370) /uL [place] # (Auto) 600 (0-900) /uL Eos # (Auto) 100 (0-450) /uL Baso # (Auto) 100 (0-100) /uL Platelet Estimate Adequate on smear RBC Morphology Normal morphology Sodium 137 (137-145) mmol/L Potassium 3.8 (3.4-5.1) mmol/L Chloride 104 (98-107) mmol/L Carbon Dioxide 25 (22-32) mmol/L BUN 10 (7-17) mg/dL Creatinine 0.65 (0.52-1.04) mg/dL Estimated GFR > 60.0 (>60) mL/min BUN/Creatinine Ratio 15.4 (6-22) Glucose 86 (70-100) mg/dL Calcium 9.9 (8.4-10.2) mg/dL Total Bilirubin 0.5 (0.2-1.3) mg/dL AST 34 (14-36) IU/L ALT 31 (<35) IU/L Alkaline Phosphatase 77 (38-126) U/L Total Protein 8.2 (6.3-8.2) g/dL Albumin 4.9 (3.5-5.0) g/dL Globulin 3.3 (1.7-4.1) g/dL Albumin/Globulin Ratio 1.5 (1.0-2.8) Point of care testing: Point of Care Testing Test Results Negative Urine Dip Bedside Urine Glucose Negative Bedside Urine Bilirubin - Negative Bedside Urine Ketone - Negative Urine Specific Ferney 1.020 Bedside Urine Occult Blood - Negative Bedside Urine pH 6.5 Bedside Urine Protein - Negative Bedside Urine Urobilinogen - Negative Bedside Urine Nitrite - Negative Bedside Urine Leukocytes - Negative Esterase Imaging Data CT scan - abdomen/pelvis: Radiologist's Impression: [address] [id number] Scan ReportSigned Patient: Tash Rivero LMR#: [id number]: [id number]:[id number]/Sex: 30 / FDate of Service: 02/09/21Loc: EDAccession Number: [id number] Procedure: CT abdomen pelvis w con Ordering Provider: Osman Kaur D.O. PROCEDURE: CT ABDOMEN PELVIS W CON INDICATIONS: severe lower abdominal pain TECHNIQUE: After the administration of intravenous contrast, 5 mm thick sections acquired from the diaphragm to the symphysis. 5 mm coronal and sagittal reformats were acquired. For radiation dose reduction, the following was used: automated exposure control, adjustment of mA and/or kV according to patient size. COMPARISON: [facility], CT, CT KIDNEY URETER BLADDER (KUB), 07/28/2019, 18:36. [facility], CT, CT KIDNEY URETER BLADDER (KUB), 08/17/2020, 5:17. FINDINGS: Image quality: Excellent. ABDOMEN: Lung bases: Lung bases are clear. Heart size is normal. Solid organs: Liver is normal in size and enhancement. Incidental note is made of focal fatty infiltration adjacent to the falciform ligament, which is not regarded to be pathologic. Gallbladder wall is not thickened. Biliary system is non dilated. Pancreas enhances normally. Spleen is normal in size and enhancement. No adrenal nodules. Kidneys demonstrate normal size and enhancement, without hydronephrosis. The previously seen left ureteral stone has resolved. Peritoneum and bowel: There is generalized wall thickening seen involving the distal colon, beginning at the level of the proximal transverse colon and continuing through the rectum. Minimal surrounding inflammatory changes are seen. Milder colonic wall thickening can be seen elsewhere. No dilated loops of small bowel are seen. No free fluid or air. A normal appendix is seen. No significant sigmoid diverticulosis can be seen. Nodes and vessels: No retroperitoneal or mesenteric adenopathy by size criteria. Aorta and inferior vena cava are normal in size. Miscellaneous: No ventral hernias. PELVIS: Genitourinary: Bladder wall thickness is normal. The uterus appears normal for age. No adnexal masses are seen. Miscellaneous: No inguinal hernias or adenopathy. Bones: No suspicious bony lesions. No vertebral body compression fractures. IMPRESSION: Colonic wall thickening can be seen, which is most prominent distally. Please correlate with potential infectious and inflammatory causes of colitis, including C. difficile colitis. No findings of perforation or abscess can be seen. Normal appendix. Resolution of the previously seen left ureteral stone. Dictated by: Skip Gastelum M.D. on 02/09/2021 at 14:57 Approved by: Skip Gastelum M.D. on 02/09/2021 at 14:59 [facility] Narrative Medical decision making narrative: 30-year-old female with many weeks of lower abdominal pain and loose stools in the mornings only has a CT demonstrating inflammatory versus infectious condition in her colon without abscess or perforation. She does have of elevated white blood count but is not septic. She has pain controlled, tolerating orals. We did discuss the possibility of a recurrence of her C diff though the patient has not been on antibiotics recently, has not had a bowel movement since this morning. Additionally, we discussed the utility of treating her for the possibility of an infectious bowel condition with either Cipro or he has other mycin and she very strongly refused stating she would follow-up closely and does not want to assume the chance of recurrence of C diff. return precautions given, questions answered to her apparent satisfaction Discharge Plan Departure Patient Disposition: Home Clinical Impression: Colitis Instructions: DI for Colitis Activity Restrictions/Additional Instructions: *You have been diagnosed with [lower abdominal pain, likely due to colitis. C diff is possible, however lack of bowel movement in the department and your current white blood cell count make it unlikely.] *What to do: *Take medications as directed *Follow up with your primary care provider in 2-3 days, call for an appointment. Let them know you were seen in the Emergency Department and that we ask that you be seen in follow up *Return to ER if you should have any new, worsening or concerning symptoms Prescriptions: New hydrocodone-acetaminophen 5-325 mg tablet 1 tab PO Q4-6H PRN (Reason: pain) Qty: 10 RF: 0 No Action medroxyprogesterone [Depo-Provera] 150 mg/mL suspension 150 mg IM [id number] RF: 0 dicyclomine 10 mg/5 mL solution 10 mg PO TID PRN (Reason: abdominal pain) Qty: 473 RF: 0 Referrals: Prem Caro MD [Primary Care Provider] - Stand Alone Forms: Work Release Note
[2021-02-09 13:07] VITALS: BP 143/90; PULSE 75; RESP 18; TEMP 37; O2SAT 95
[2021-02-09] MEDS: PANTOPRAZOLE 40 MG VIAL IV (13:33)
[2021-02-09] MEDS: SODIUM CHLORIDE 0.9% 1,000 ML 1000 ML IV (13:33)
[2021-02-09 13:48] LABS: Basophils Absolute Auto 100 /uL (0-100); Basophils Percent Auto 0.8 % (0-2); Eosinophils Absolute Auto 100 /uL (0-450); Eosinophils Percent Auto 0.4 % (2-4); Hematocrit 43.2 % (36-46); Hemoglobin 14.9 g/dL (12.0-16.0); Lymphocytes Absolute Auto 3800 /uL (1100-4500); Lymphocytes Percent Auto 21.7 % (25-40); Mean Corpuscular HGB Conc 34.5 % (30-36); Mean Corpuscular Hemoglobin 32.3 PG (26-34); Mean Corpuscular Volume 93.6 fL (80-100); Monocytes Absolute Auto 600 /uL (0-900); Monocytes Percent Auto 3.7 % (3-14); Neutrophils Absolute Auto 12900 /uL (1500-7000); Neutrophils Percent Auto 73.4 % (50-75); Red Blood Cell Count 4.61 X10^6/uL (4.0-5.2); Red Cell Distribution Width 13.5 % (11.6-14.8); White Blood Cell Count 17.6 X10^3/uL (4.5-11.0)
[2021-02-09 13:51] LABS: Alanine Aminotransferase 31 IU/L (<35); Albumin 4.9 g/dL (3.5-5.0); Albumin Globulin Ratio 1.5 (1.0-2.8); Alkaline Phosphatase 77 U/L (38-126); Aspartate Aminotransferase 34 IU/L (14-36); BUN Creatinine Ratio 15.4 (6-22); Bilirubin Total 0.5 mg/dL (0.2-1.3); Blood Urea Nitrogen 10 mg/dL (7-17); Calcium 9.9 mg/dL (8.4-10.2); Carbon Dioxide 25 mmol/L (22-32); Chloride 104 mmol/L (98-107); Estimated Glomerular Filt Rate > 60.0 mL/min (>60); Globulin 3.3 g/dL (1.7-4.1); Glucose 86 mg/dL (70-100); HEMOLYSIS 18 (0-50); Potassium 3.8 mmol/L (3.4-5.1); Sodium 137 mmol/L (137-145); Total Protein 8.2 g/dL (6.3-8.2)
[2021-02-09 13:52] LABS: Add Manual Diff / Slide Review SLIDE REVIEW
[2021-02-09 14:40] LABS: Platelet Estimate Adequate on smear; RBC Morphology Normal Morphology
--- NOTE | 2021-02-09 15:23 | DI.CT.S_ITS ---
PROCEDURE: CT ABDOMEN PELVIS W CON INDICATIONS: severe lower abdominal pain TECHNIQUE: After the administration of intravenous contrast, 5 mm thick sections acquired from the diaphragm to the symphysis. 5 mm coronal and sagittal reformats were acquired. For radiation dose reduction, the following was used: automated exposure control, adjustment of mA and/or kV according to patient size. COMPARISON: [facility], CT, CT KIDNEY URETER BLADDER (KUB), 07/28/2019, 18:36. [facility], CT, CT KIDNEY URETER BLADDER (KUB), 08/17/2020, 5:17. FINDINGS: Image quality: Excellent. ABDOMEN: Lung bases: Lung bases are clear. Heart size is normal. Solid organs: Liver is normal in size and enhancement. Incidental note is made of focal fatty infiltration adjacent to the falciform ligament, which is not regarded to be pathologic. Gallbladder wall is not thickened. Biliary system is non dilated. Pancreas enhances normally. Spleen is normal in size and enhancement. No adrenal nodules. Kidneys demonstrate normal size and enhancement, without hydronephrosis. The previously seen left ureteral stone has resolved. Peritoneum and bowel: There is generalized wall thickening seen involving the distal colon, beginning at the level of the proximal transverse colon and continuing through the rectum. Minimal surrounding inflammatory changes are seen. Milder colonic wall thickening can be seen elsewhere. No dilated loops of small bowel are seen. No free fluid or air. A normal appendix is seen. No significant sigmoid diverticulosis can be seen. Nodes and vessels: No retroperitoneal or mesenteric adenopathy by size criteria. Aorta and inferior vena cava are normal in size. Miscellaneous: No ventral hernias. PELVIS: Genitourinary: Bladder wall thickness is normal. The uterus appears normal for age. No adnexal masses are seen. Miscellaneous: No inguinal hernias or adenopathy. Bones: No suspicious bony lesions. No vertebral body compression fractures. IMPRESSION: Colonic wall thickening can be seen, which is most prominent distally. Please correlate with potential infectious and inflammatory causes of colitis, including C. difficile colitis. No findings of perforation or abscess can be seen. Normal appendix. Resolution of the previously seen left ureteral stone. Dictated by: Skip Gastelum M.D. on 02/09/2021 at 14:57 Approved by: Skip Gastelum M.D. on 02/09/2021 at 14:59
[2021-02-09 16:45] VITALS: BMI 28.8
[2021-02-09] MEDS: HYDROCODONE/ACET 5/325 PREPACK 1 BOTTLE MISC (16:45)
[2021-02-09 16:57] VITALS: BP 130/76; PULSE 82; RESP 14; O2SAT 97
== END 2021-02-09 17:01 | disposition home or self-care (01) ==
PROVIDERS: Emergency Provider Emergency Medicine; PCP Student in an Organized Health Care Education/Training Program
DX: K52.9 Noninfective gastroenteritis and colitis, unspecified (principal); R11.0 Nausea
CPT/HCPCS: 36415; 74177; 80053; 81003; 81025; 85025; 96361; 96374; 99284; C9113; Q9967

== ENCOUNTER 2021-02-20 11:14 | Emergency (ER) | payer OTHER, MEDICAID, SELFPAY ==
[2021-02-20] VITALS (10 sets, daily range): BP systolic 96–132; BP diastolic 53–78; PULSE 62–100; RESP 16; TEMP 37; O2SAT 79–99; BMI 29.2
--- NOTE | 2021-02-20 12:12 | ED.ABDPAIN ---
HPI - Abdominal Pain General Chief Complaint: Abdominal Pain Stated Complaint: stomach pain x2 weeks Time Seen by Provider: 02/20/21 11:59 History of Present Illness HPI narrative: Patient continues lower abdominal pain for the past 2 weeks. Seen here on February 09 CT scan and blood work completed. Follow up with Dr. Friend primary care placed 3 days of Cipro without relief. Seen in the office again today continued pain and nausea and watery diarrhea. Wire diarrhea is not new. Has a chronically. Last colonoscopy for 5 years ago. Has chronic abdominal pain and problems. No definitive diagnosis. Denies no changes and appearance of her diarrhea, No urinary complaints HPI Details: 30F with PMH colitis, depression and anxiety presents today f/up ED visit 02/09/2021. Pt of Dr. Caro's. She was at that time diagnosed with colitis per CT, leukocytosis per labs. Antibiotics were recommended, however, patient declined these initially. Dr Caro prescribed her a 3 day course of antibiotics, which made her 10 times worse. She was prescribed Ciprofloxacin. She reports she felt light headed, nauseated, and experienced worsening abdominal pain. Nausea worse after eating. She did finish the 3 day course and her symptoms are persisting, and worsening since then. She has been taking tylenol, diclyclomine, imodium without relief, and she is running out of money to buy over the counter stuff. Stool O&P from November negative, H Pylori also negative from November. Reports that the opiate analgesia she was prescribed actually helped with her diarrhea for the past week, but unfortunately, the diarrhea returned this morning. Reports she sees Anushka, a psychiatrist, on 03/01. Supposed to start a new job on Thursday, not sure she can, due to her abdominal discomfort and diarrhea. Per Dr. Caro's recent notes: Ms. Cavanaugh is here to follow up the abdominal pain discussed in the previous visit. Recall that she described an ongoing, crampy pain gradually worsening over the last 3 years or so. No clear inciting event, injury, over exertion, new exposure. Associated symptoms include daily diarrhea, nausea, reflux, frequent vomiting. Says symptoms are gradually getting worse and have begun to include left flank pain over the last couple of days. Is under a great deal of stress right now. Has a remote history of similar symptoms connect with stress. Denies fever, chills, presyncope, ALOC, hematochezia, melena, hematemesis, shortness of breath, or skin changes. She saw Dr. Green (GI) in 2013 for similar problems that were attributed to a C diff colitis. The C diff was treated and she had a subsequent colonoscopy in September 2014. These records are now available and described an EGD + c-scope done Sep 2014 which showed only a mild gastroduodenoscopy. Surgical pathology was benign. Workup ordered at our last visit was normal. I prescribed dicyclomine and pantoprazole for symptomatic management. She found the former to be quite helpful in the latter not to be. There is an ongoing concern for endometriosis, but she is having continuous symptoms not associated with her menstrual cycle. Since our last visit, she says that her stress level is increasing. Her cat unexpectedly and her car broke down. She feels like she is not handling her stress very well. Related Data Home Medications Medication Instructions Recorded Confirmed medroxyprogesterone 150 mg/mL 150 mg IM [id number] 04/07/18 12/12/20 intramuscular suspension loperamide 2 mg capsule 2 mg PO DAILY cap 02/20/21 02/20/21 Previous Rx's Medication Instructions Recorded dicyclomine 10 mg/5 mL oral 10 mg PO TID PRN #473 ml 11/15/20 solution hydrocodone-acetaminophen 1 tab PO Q6H PRN #14 tab 02/20/21 ibuprofen 600 mg PO Q6H PRN #20 tab 02/20/21 ondansetron 4 mg PO Q8H PRN #10 tab 02/20/21 Allergies Allergy/AdvReac Type Severity Reaction Status Date / Time doxycycline AdvReac n/v Verified 02/20/21 10:09 guaifenesin [From Mucinex] AdvReac n/v Verified 02/20/21 10:09 trazodone AdvReac mental Verified 02/20/21 10:09 status changes Review of Systems Review of Systems Narrative: GENERAL: Denies chills, fatigue, malaise, fever, sweats. HEENT: Denies sinus pain, ear pain, sore throat RESPIRATORY: Denies dyspnea, cough CARDIOVASCULAR: Denies chest pain, palpitations GASTROINTESTINAL: Complaint nausea, vomiting, abdominal pain complains diarrhea, no blood in stool, no black stool. : Denies dysuria, frequency, hematuria MUSCULOSKELETAL: denies muscle or bony pain SKIN: Denies rash, skin lesions NEUROLOGIC: Denies weakness, numbness ROS Unobtainable: All systems reviewed & are unremarkable except as noted in HPI and below Patient History Medical History Dyspareunia Dysplasia of cervix, low grade (BOBBI 1) Endometriosis Ovarian cyst Surgical History H/O laparoscopy (~09/22/19) History of colposcopy (04/07/18) S/P wisdom tooth extraction Social History Smoking Status: Current every day smoker alcohol intake: current Smoking Status: Current every day smoker tobacco type: cigarettes alcohol intake frequency: other Substance Use Type: marijuana Exam Narrative Exam Narrative: GENERAL: in no distress, not toxic not dyspneic HEAD: Normocephalic. EYES: Pupils equal round No scleral icterus. No injection no discharge ENT: Mucous membranes moist. NECK: Trachea midline. CARDIOVASCULAR: Regular rate and rhythm without murmurs RESPIRATORY: Clear to auscultation. Breath sounds equal bilaterally. No wheezes, rales, or rhonchi. GASTROINTESTINAL: Abdomen soft, diffuse mild tenderness of the abdomen. No peritoneal signs, bowel sounds present. EXTREMITIES: No gross deformities. BACK: No flank tenderness. NEURO: AOx4. Up and walking without assist without any difficulties to the bathroom for collection of urine specimen. SKIN: Warm and dry PSYCH: Not anxious, is cooperative Initial Vital Signs Initial Vital Signs: Vital Signs Temperature 98.6 F 02/20/21 11:23 Pulse Rate 96 H 02/20/21 11:23 Respiratory Rate 16 02/20/21 11:23 Blood Pressure 132/78 02/20/21 11:23 Pulse Oximetry 97 02/20/21 11:23 Course Course Course Narrative: Pain controlled while here. Feeling better. No diarrhea. Orders Ordered: Discontinued Medications Morphine Sulfate (Morphine 4 Mg/Ml Inj) 4 mg IV NOW ONE Stop: 02/20/21 13:56 Last Admin: 02/20/21 14:05 Dose: 4 mg Documented by: FAIZAN Reevaluation(s) Reevaluation #1: Patient does not want to be admitted. She prefers to be discharged home and she will follow up with her family doctor and get referral for Gastroenterology at [facility]. She is aware of their services there. She prefers to have outpatient workup. Time: 15:12 Consultations Consultation #1: Spoke with Dr. Oliva, general surgeon. Patient would be best to follow-up with gastroenterology. Needs outpatient colonoscopy Time: 15:12 Vital Signs Vital signs: Vital Signs - 8 hr 02/20/21 11:23 02/20/21 12:32 02/20/21 12:56 Temperature 98.6 F Pulse Rate 79 66 Respiratory Rate 16 Blood Pressure 132/78 112/69 Pulse Oximetry 97 99 79 L 02/20/21 12:57 02/20/21 13:00 02/20/21 13:30 Temperature Pulse Rate 74 68 76 Respiratory Rate Blood Pressure 123/75 113/60 Pulse Oximetry 99 99 98 02/20/21 13:31 Temperature Pulse Rate 62 Respiratory Rate Blood Pressure 96/53 L Pulse Oximetry 98 MDM - Abdominal Pain Differential Diagnosis Differential diagnosis: Likely abdominal pain, acute appendicitis, diverticulitis, gastroenteritis and small bowel obstruction Medical Records Attestation: I reviewed the patient's medical records. Lab Data Attestation: I reviewed the patient's lab results. Result diagrams: 02/20/21 11:23 02/20/21 11:23 Labs: Lab Results 02/20/21 02/20/21 02/20/21 Range/Units 11:23 11:23 11:23 WBC 14.3 H (4.5-11.0) X10^3/uL RBC 4.69 (4.0-5.2) X10^6/uL Hgb 15.1 (12.0-16.0) g/dL Hct 44.3 (36-46) % MCV 94.5 (80-100) fL MCH 32.1 (26-34) PG MCHC 34.0 (30-36) % RDW 13.9 (11.6-14.8) % Plt Count 216 (150-400) X10^3/uL Neut % (Auto) 67.5 (50-75) % Lymph % (Auto) 26.0 (25-40) % [place] % (Auto) 4.7 (3-14) % Eos % (Auto) 1.3 L (2-4) % Baso % (Auto) 0.5 (0-2) % Neut # (Auto) 9700 H (0981-0764) /uL Lymph # (Auto) 3700 (6957-7490) /uL [place] # (Auto) 700 (0-900) /uL Eos # (Auto) 200 (0-450) /uL Baso # (Auto) 100 (0-100) /uL Sodium 137 (137-145) mmol/L Potassium 4.6 (3.4-5.1) mmol/L Chloride 105 (98-107) mmol/L Carbon Dioxide 23 (22-32) mmol/L BUN 12 (7-17) mg/dL Creatinine 0.65 (0.52-1.04) mg/dL Estimated GFR > 60.0 (>60) mL/min BUN/Creatinine Ratio 18.5 (6-22) Glucose 102 H (70-100) mg/dL Calcium 10.0 (8.4-10.2) mg/dL Total Bilirubin 0.4 (0.2-1.3) mg/dL AST 38 H (14-36) IU/L ALT 44 H (<35) IU/L Alkaline Phosphatase 74 (38-126) U/L Total Protein 8.0 (6.3-8.2) g/dL Albumin 4.8 (3.5-5.0) g/dL Globulin 3.2 (1.7-4.1) g/dL Albumin/Globulin Ratio 1.5 (1.0-2.8) Lipase 73 (23-300) U/L Serum , Qual Negative (Negative) SARS-CoV-2 (PCR) (Negative) 02/20/21 Range/Units 14:27 WBC (4.5-11.0) X10^3/uL RBC (4.0-5.2) X10^6/uL Hgb (12.0-16.0) g/dL Hct (36-46) % MCV (80-100) fL MCH (26-34) PG MCHC (30-36) % RDW (11.6-14.8) % Plt Count (150-400) X10^3/uL Neut % (Auto) (50-75) % Lymph % (Auto) (25-40) % [place] % (Auto) (3-14) % Eos % (Auto) (2-4) % Baso % (Auto) (0-2) % Neut # (Auto) (3881-5865) /uL Lymph # (Auto) (5149-4053) /uL [place] # (Auto) (0-900) /uL Eos # (Auto) (0-450) /uL Baso # (Auto) (0-100) /uL Sodium (137-145) mmol/L Potassium (3.4-5.1) mmol/L Chloride (98-107) mmol/L Carbon Dioxide (22-32) mmol/L BUN (7-17) mg/dL Creatinine (0.52-1.04) mg/dL Estimated GFR (>60) mL/min BUN/Creatinine Ratio (6-22) Glucose (70-100) mg/dL Calcium (8.4-10.2) mg/dL Total Bilirubin (0.2-1.3) mg/dL AST (14-36) IU/L ALT (<35) IU/L Alkaline Phosphatase (38-126) U/L Total Protein (6.3-8.2) g/dL Albumin (3.5-5.0) g/dL Globulin (1.7-4.1) g/dL Albumin/Globulin Ratio (1.0-2.8) Lipase (23-300) U/L Serum , Qual (Negative) SARS-CoV-2 (PCR) Negative (Negative) Point of care testing: Urine Dip Bedside Urine Glucose Negative Bedside Urine Bilirubin - Negative Bedside Urine Ketone - Negative Urine Specific [place] 1.015 Bedside Urine Occult Blood - Negative Bedside Urine pH 8.0 Bedside Urine Protein - Negative Bedside Urine Urobilinogen - Negative Bedside Urine Nitrite - Negative Bedside Urine Leukocytes - Negative Esterase Imaging Data CT scan - abdomen/pelvis: Radiologist's Impression: [address] [id number] Scan ReportSigned Patient: Tash Rivero LMR#: [id number]: [id number]:[id number]/Sex: 30 te of Service: 02/20/21Loc: EDAccession Number: [id number] Procedure: CT abdomen pelvis w con Ordering Provider: Mike Fernández MD PROCEDURE: CT ABDOMEN PELVIS W CON INDICATIONS: IV contrast only/lower abdominal pain TECHNIQUE: After the administration of intravenous contrast, 5 mm thick sections acquired from the diaphragm to the symphysis. 5 mm coronal and sagittal reformats were acquired. For radiation dose reduction, the following was used: automated exposure control, adjustment of mA and/or kV according to patient size. COMPARISON: [facility], CT, CT ABDOMEN PELVIS W CON, 02/09/2021, 15:28. FINDINGS: Image quality: Excellent. ABDOMEN: Lung bases: Lung bases are clear. Heart size is normal. Solid organs: Liver is normal in size and enhancement. Gallbladder is unremarkable. Biliary system is non dilated. Pancreas enhances normally. Spleen is normal in size and enhancement. No adrenal nodules. Kidneys demonstrate normal size and enhancement, without hydronephrosis. Peritoneum and bowel: Normal appendix. Interval decrease in sigmoid wall thickening versus more distended bowel. Bowel is otherwise unremarkable. No free fluid or air. Nodes and vessels: No retroperitoneal or mesenteric adenopathy by size criteria. Aorta and inferior vena cava are normal in size. Miscellaneous: No ventral hernias. PELVIS: Genitourinary: Bladder wall thickness is normal. Miscellaneous: No inguinal hernias or adenopathy. Bilateral cystic adnexae. Bones: No suspicious bony lesions. No vertebral body compression fractures. IMPRESSION: 1. Normal appendix. 2. Bilateral cystic adnexa a. 3. Interval decrease in sigmoid wall thickening versus more distension of this region of the bowel. Dictated by: Dennis Villavicencio M.D. on 02/20/2021 at 13:01 Approved by: Dennis Villavicencio M.D. on 02/20/2021 at 13:05 [facility] Narrative Medical decision making narrative: Appropriate for discharge home. Ongoing for many weeks. Patient does have family doctor to give referral for Gastroenterology for further workup and colonoscopy. Patient does not want be admitted. She desires discharge home. White cell count remains elevated. No significant changes. Patient understands we do not have Gastroenterology on-call. And family doctor will need to find referral. Patient states she will contact her family doctor for referral to Gastroenterology. Discharge Plan Departure Patient Disposition: Home Clinical Impression: Abdominal pain Qualifiers: Abdominal location: lower abdomen, unspecified Qualified Code(s): R10.30 - Lower abdominal pain, unspecified Diarrhea Qualifiers: Diarrhea type: unspecified type Qualified Code(s): R19.7 - Diarrhea, unspecified Instructions: Diarrhea, DI for Abdominal Pain-Adult Activity Restrictions/Additional Instructions: No driving or operating machinery today. Keep well hydrated. See your family doctor as planned to get referral for Gastroenterology. Return if worse if any questions or concerns. Prescriptions: New hydrocodone-acetaminophen 5-325 mg tablet 1 tab PO Q6H PRN (Reason: pain) Qty: 14 RF: 0 ibuprofen 600 mg tablet 600 mg PO Q6H PRN (Reason: fever or pain) Qty: 20 RF: 0 ondansetron 4 mg tablet,disintegrating 4 mg PO Q8H PRN (Reason: nausea and vomiting) Qty: 10 RF: 0 No Action medroxyprogesterone [Depo-Provera] 150 mg/mL suspension 150 mg IM [id number] RF: 0 dicyclomine 10 mg/5 mL solution 10 mg PO TID PRN (Reason: abdominal pain) Qty: 473 RF: 0 loperamide [Imodium A-D] 2 mg capsule 2 mg PO DAILY RF: 0 Referrals: Sabina Richard ARNP [Primary Care Provider] -
[2021-02-20 12:27] LABS: Pregnancy Test Serum,Qual Negative (Negative)
[2021-02-20 12:30] LABS: Alanine Aminotransferase 44 IU/L (<35); Albumin 4.8 g/dL (3.5-5.0); Albumin Globulin Ratio 1.5 (1.0-2.8); Alkaline Phosphatase 74 U/L (38-126); Aspartate Aminotransferase 38 IU/L (14-36); BUN Creatinine Ratio 18.5 (6-22); Bilirubin Total 0.4 mg/dL (0.2-1.3); Blood Urea Nitrogen 12 mg/dL (7-17); Carbon Dioxide 23 mmol/L (22-32); Chloride 105 mmol/L (98-107); Estimated Glomerular Filt Rate > 60.0 mL/min (>60); Globulin 3.2 g/dL (1.7-4.1); Glucose 102 mg/dL (70-100); HEMOLYSIS < 15 (0-50); Lipase 73 U/L (23-300); Potassium 4.6 mmol/L (3.4-5.1); Sodium 137 mmol/L (137-145)
[2021-02-20 12:35] LABS: Add Manual Diff / Slide Review NO; Basophils Absolute Auto 100 /uL (0-100); Basophils Percent Auto 0.5 % (0-2); Eosinophils Absolute Auto 200 /uL (0-450); Eosinophils Percent Auto 1.3 % (2-4); Hematocrit 44.3 % (36-46); Hemoglobin 15.1 g/dL (12.0-16.0); Lymphocytes Absolute Auto 3700 /uL (1100-4500); Mean Corpuscular Hemoglobin 32.1 PG (26-34); Mean Corpuscular Volume 94.5 fL (80-100); Monocytes Absolute Auto 700 /uL (0-900); Monocytes Percent Auto 4.7 % (3-14); Neutrophils Absolute Auto 9700 /uL (1500-7000); Neutrophils Percent Auto 67.5 % (50-75); Red Blood Cell Count 4.69 X10^6/uL (4.0-5.2); Red Cell Distribution Width 13.9 % (11.6-14.8); White Blood Cell Count 14.3 X10^3/uL (4.5-11.0)
[2021-02-20 13:05] LABS: Platelet Count 216 X10^3/uL (150-400)
[2021-02-20] MEDS: MORPHINE 4 MG/ML INJ IV (14:05)
[2021-02-20 14:56] LABS: COVID19 -Nasal RAPID Negative (Negative)
== END 2021-02-20 15:27 | disposition home or self-care (01) ==
PROVIDERS: Emergency Provider Emergency Medicine; PCP Nurse Practitioner
DX: R10.30 Lower abdominal pain, unspecified (principal); R19.7 Diarrhea, unspecified; R11.0 Nausea; Z20.822 Contact with and (suspected) exposure to COVID-19
CPT/HCPCS: 36415; 74177; 80053; 81003; 83690; 84703; 85025; 87635; 96374; 99284; C9803; J2270

== ENCOUNTER 2021-04-15 08:51 | Emergency (ER) | payer OTHER, MEDICAID, SELFPAY ==
[2021-04-15 09:12] VITALS: BP 139/81; PULSE 112; RESP 24; TEMP 37.3; O2SAT 98
[2021-04-15 10:42] LABS: Alanine Aminotransferase 33 IU/L (<35); Albumin 4.4 g/dL (3.5-5.0); Albumin Globulin Ratio 1.5 (1.0-2.8); Alkaline Phosphatase 60 U/L (38-126); Aspartate Aminotransferase 31 IU/L (14-36); BUN Creatinine Ratio 14.3 (6-22); Bilirubin Total 0.4 mg/dL (0.2-1.3); Blood Urea Nitrogen 11 mg/dL (7-17); Calcium 9.8 mg/dL (8.4-10.2); Carbon Dioxide 27 mmol/L (22-32); Chloride 106 mmol/L (98-107); Estimated Glomerular Filt Rate > 60.0 mL/min (>60); Glucose 87 mg/dL (70-100); HEMOLYSIS 17 (0-50); Lipase 131 U/L (23-300); Potassium 4.3 mmol/L (3.4-5.1); Sodium 140 mmol/L (137-145); Total Protein 7.4 g/dL (6.3-8.2)
--- NOTE | 2021-04-15 10:47 | ED_ITS ---
HPI - Female Genitourinary General Chief complaint: Urogenital-Female Stated complaint: kidney stones Time Seen by Provider: 04/15/21 10:47 Source: patient and old records reviewed Mode of arrival: Ambulatory Limitations: no limitations History of Present Illness HPI Narrative: This is a 30-year-old female who comes to the emergency department with complaint of acute on chronic abdominal pain. Patient states she has had kidney stones in the past this feels similar. She describes right flank pain. Patient states no fevers or chills. No nausea or vomiting. She states she has had chronic abdominal pain she has had multiple workups including a laparoscopic surgery which was negative for endometriosis EGD and colonoscopy several weeks ago which was negative. Patient states she is set up for some sort of gallbladder screening likely HIDA scan. Patient states she has had dysuria, frequency and a sense of incomplete emptying. She denies any major changes to bowel movements. No black or bloody stools. She has noted a little bit of vaginal discharge but not significantly different. She denies any va ginal bleeding. She denies any regular medications. She denies any other surgeries besides laparoscopic. She states that all oral antibiotics make her vomit after several days, she cannot take trazodone or guaifenesin. Related Data Home Medications Medication Instructions Recorded Confirmed medroxyprogesterone 150 mg/mL 150 mg IM [id number] 04/07/18 12/12/20 intramuscular suspension loperamide 2 mg capsule 2 mg PO DAILY cap 02/20/21 02/20/21 Previous Rx's Medication Instructions Recorded dicyclomine 10 mg/5 mL oral 10 mg PO TID PRN #473 ml 11/15/20 solution hydrocodone-acetaminophen 1 tab PO Q6H PRN #14 tab 02/20/21 ibuprofen 600 mg PO Q6H PRN #20 tab 02/20/21 ondansetron 4 mg PO Q8H PRN #10 tab 02/20/21 hydrocodone-acetaminophen 1 tab PO Q6H PRN #10 tab 04/15/21 prednisone 50 mg PO DAILY #5 tab 04/15/21 Allergies Allergy/AdvReac Type Severity Reaction Status Date / Time doxycycline AdvReac n/v Verified 04/15/21 09:15 guaifenesin [From Mucinex] AdvReac n/v Verified 04/15/21 09:15 trazodone AdvReac mental Verified 04/15/21 09:15 status changes Review of Systems Review of Systems ROS Unobtainable: All systems reviewed & are unremarkable except as noted in HPI and below Patient History Medical History Dyspareunia Dysplasia of cervix, low grade (BOBBI 1) Endometriosis Ovarian cyst Surgical History H/O laparoscopy (~09/22/19) History of colposcopy (04/07/18) S/P wisdom tooth extraction tobacco type: cigarettes alcohol intake frequency: other Substance Use Type: marijuana Exam Narrative Exam Narrative: GENERAL: Alert and oriented x three, well-nourished female in mild to moderate distress. HEENT: Head normocephalic, atraumatic, EOMI, pupils reactive, face symmetric, moist mucous membranes NECK: Supple, full range of motion CARDIOVASCULAR: Regular rate and rhythm without murmurs, rubs or gallops. RESPIRATORY: Breath sounds equal bilaterally, no wheezes rales or rhonchi. ABDOMEN: Soft, generalized tenderness. Normoactive bowel sounds all 4 quadrant s. No guarding or rebound, rigidity, no mass : No bilateral CVA tenderness EXTREMITIES: Normal range of motion, no clubbing or edema. Neurovascularly intact NEUROLOGICAL: Cranial nerves II through XII grossly intact. Moving all extremities SKIN: Warm, dry, no petechiae, no rashes or lesions. Initial Vital Signs Initial Vital Signs: Vital Signs Temperature 99.1 F 04/15/21 09:12 Pulse Rate 112 H 04/15/21 09:12 Respiratory Rate 24 04/15/21 09:12 Blood Pressure 139/81 04/15/21 09:12 Pulse Oximetry 98 04/15/21 09:12 Course Orders Ordered: ED Orders 04/15/21 11:55 CT abdomen pelvis w con Stat Discontinued Medications Sodium Chloride (Normal Saline 0.9%) 1,000 mls @ 1,000 mls/hr IV BOLUS ONE Stop: 04/15/21 10:16 Last Admin: 04/15/21 10:57 Dose: Not Given Documented by: RSTONE Sodium Chloride (Normal Saline 0.9%) 1,000 mls @ 1,000 mls/hr IV BOLUS ONE Stop: 04/15/21 11:41 Last Infusion: 04/15/21 13:08 Dose: 0 mls/hr Documented by: Admin: 04/15/21 10:59 Dose: 1,000 mls/hr Documented by: LINDA Ketorolac Tromethamine (Ketorolac 30 Mg/Ml Vial) 15 mg IV NOW ONE Stop: 04/15/21 10:44 Last Admin: 04/15/21 10:59 Dose: 15 mg Documented by: LINDA Morphine Sulfate (Morphine 4 Mg/Ml Inj) 4 mg IV NOW ONE Stop: 04/15/21 11:23 Last Admin: 04/15/21 11:39 Dose: 4 mg Documented by: LINDA Ondansetron HCl (Ondansetron 4 Mg/2 Ml Inj) 4 mg IV NOW ONE Stop: 04/15/21 10:43 Last Admin: 04/15/21 10:58 Dose: 4 mg Documented by: LINDA Vital Signs Vital signs: Vital Signs - 8 hr 04/15/21 13:12 Pulse Rate 89 Respiratory Rate 16 Blood Pressure 132/69 MDM - Female Genitourinary Lab Data Attestation: I reviewed the patient's lab results. Result diagrams: 04/15/21 10:25 04/15/21 10:25 Labs: Lab Results 04/15/21 04/15/21 04/15/21 Range/Units 10:25 10:25 10:25 WBC 12.1 H (4.5-11.0) X10^3/uL RBC 4.51 (4.0-5.2) X10^6/uL Hgb 14.6 (12.0-16.0) g/dL Hct 43.0 (36-46) % MCV 95.3 (80-100) fL MCH 32.4 (26-34) PG MCHC 34.0 (30-36) % RDW 13.5 (11.6-14.8) % Plt Count TNP Neut % (Auto) 55.2 (50-75) % Lymph % (Auto) 37.9 (25-40) % [place] % (Auto) 4.3 (3-14) % Eos % (Auto) 2.1 (2-4) % Baso % (Auto) 0.5 (0-2) % Neut # (Auto) 6700 (9821-9939) /uL Lymph # (Auto) 4600 H (3055-3728) /uL [place] # (Auto) 500 (0-900) /uL Eos # (Auto) 200 (0-450) /uL Baso # (Auto) 100 (0-100) /uL Platelet Estimate Adequate on smear Plt Morphology Comment RBC Morphology Normal morphology Sodium 140 (137-145) mmol/L Potassium 4.3 (3.4-5.1) mmol/L Chloride 106 (98-107) mmol/L Carbon Dioxide 27 (22-32) mmol/L BUN 11 (7-17) mg/dL Creatinine 0.77 (0.52-1.04) mg/dL Estimated GFR > 60.0 (>60) mL/min BUN/Creatinine Ratio 14.3 (6-22) Glucose 87 (70-100) mg/dL Lactate 1.0 (0.7-2.1) mmol/L Calcium 9.8 (8.4-10.2) mg/dL Total Bilirubin 0.4 (0.2-1.3) mg/dL AST 31 (14-36) IU/L ALT 33 (<35) IU/L Alkaline Phosphatase 60 (38-126) U/L Total Protein 7.4 (6.3-8.2) g/dL Albumin 4.4 (3.5-5.0) g/dL Globulin 3.0 (1.7-4.1) g/dL Albumin/Globulin Ratio 1.5 (1.0-2.8) Lipase 131 (23-300) U/L Procalcitonin 0.04 (<0.5) ng/mL Urine RBC (0-5/HPF) Urine WBC (0-5/HPF) Ur Squamous Epith Cells (0-5/HPF) Urine Bacteria (None) Ur Culture Indicated? 04/15/21 Range/Units 10:25 WBC (4.5-11.0) X10^3/uL RBC (4.0-5.2) X10^6/uL Hgb (12.0-16.0) g/dL Hct (36-46) % MCV (80-100) fL MCH (26-34) PG MCHC (30-36) % RDW (11.6-14.8) % Plt Count Neut % (Auto) (50-75) % Lymph % (Auto) (25-40) % [place] % (Auto) (3-14) % Eos % (Auto) (2-4) % Baso % (Auto) (0-2) % Neut # (Auto) (5054-4589) /uL Lymph # (Auto) (6941-5617) /uL [place] # (Auto) (0-900) /uL Eos # (Auto) (0-450) /uL Baso # (Auto) (0-100) /uL Platelet Estimate Plt Morphology Comment RBC Morphology Sodium (137-145) mmol/L Potassium (3.4-5.1) mmol/L Chloride (98-107) mmol/L Carbon Dioxide (22-32) mmol/L BUN (7-17) mg/dL Creatinine (0.52-1.04) mg/dL Estimated GFR (>60) mL/min BUN/Creatinine Ratio (6-22) Glucose (70-100) mg/dL Lactate (0.7-2.1) mmol/L Calcium (8.4-10.2) mg/dL Total Bilirubin (0.2-1.3) mg/dL AST (14-36) IU/L ALT (<35) IU/L Alkaline Phosphatase (38-126) U/L Total Protein (6.3-8.2) g/dL Albumin (3.5-5.0) g/dL Globulin (1.7-4.1) g/dL Albumin/Globulin Ratio (1.0-2.8) Lipase (23-300) U/L Procalcitonin (<0.5) ng/mL Urine RBC 0-1/hpf (0-5/HPF) Urine WBC 1-5/hpf (0-5/HPF) Ur Squamous Epith Cells 5-10 /hpf H (0-5/HPF) Urine Bacteria Moderate (10-30) H (None) Ur Culture Indicated? Cult not indicated Point of Care Testing Test Results Negative Urine Dip Bedside Urine Glucose Negative Bedside Urine Bilirubin - Negative Bedside Urine Ketone - Negative Urine Specific [place] 1.015 Bedside Urine Occult Blood - Negative Bedside Urine pH 6 Bedside Urine Protein - Negative Bedside Urine Urobilinogen - Negative Bedside Urine Nitrite - Negative Bedside Urine Leukocytes - Negative Esterase Imaging Data CT scan - abdomen/pelvis: Radiologist's Impression: [address], [place] [id number] Scan ReportSigned Patient: Tash Rivero LMR#: [id number]: [id number]:[id number]/Sex: 30 / FDate of Service: 04/15/21Loc: EDAccession Number: [id number] Procedure: CT abdomen pelvis w con Ordering Provider: Camila Koo D.O. PROCEDURE: CT ABDOMEN PELVIS W CON INDICATIONS: abd pain, urinary s/s hx of colitis in past. TECHNIQUE: After the administration of intravenous contrast, axial sections acquired from the lung bases to the pubic symphysis. Coronal and sagittal reformats were performed. For radiation dose reduction, the following was used: automated exposure control, adjustment of mA and/or kV according to patient size. COMPARISON: [facility], CT, CT ABDOMEN PELVIS W CON, 02/20/2021, 12:50. FINDINGS: Image quality: Excellent. Lung bases: Unremarkable. Heart: No significant findings. ABDOMEN: Liver: Unremarkable. Gallbladder: Unremarkable. Biliary ducts: Unremarkable. Pancreas: Unremarkable. Spleen: Unremarkable. Adrenal Glands: Unremarkable. Kidneys and Ureters: Unremarkable. Stomach and Bowel: Stomach, and small bowel loops are unremarkable. Appendix is visualized and is within normal limits. There is suggestion of wall thickening involving distal descending colon and throughout sigmoid colon without significant mesenteric fat stranding. No abscess collection. Mild sigmoid diverticulosis is seen. Peritoneum: No abnormal intraperitoneal fluid. No free air. Ventral Wall: No hernias. Abdominal Nodes: No retroperitoneal or mesenteric adenopathy by size criteria. Vessels: Aorta and inferior vena cava are normal in size. PELVIS: Pelvic Organs: Unremarkable. Bladder: Unremarkable. Pelvic Nodes: No enlarged lymph nodes. Miscellaneous: No hernias are seen. Bones: Unremarkable. IMPRESSION: 1. Questionable very low-grade distal descending and sigmoid colitis versus under distension. No abscess collection. No free fluid or free air. Mild sigmoid diverticulosis without evidence of acute diverticulitis. 2. Normal appendix. No bowel obstruction. 3. Rest of the exam is unremarkable. Dictated by: Saúl Galvez M.D. on 04/15/2021 at 12:13 Approved by: Saúl Galvez M.D. on 04/15/2021 at 12:17 MDM Narrative Medical decision making narrative: Patient's 30-year-old female with acute on chronic abdominal pain. Symptoms seem more consistent with urinary although her urine is negative here in the department. Discussed doing a pelvic exam the patient has also had colitis on recent CT imaging is having lower pelvic pain. Discussed with patient will defer pelvic exam for CT imaging but if no findings discussed we should obtain pelvic exam. Patient labs were reviewed. CT does show changes consistent with colitis. Discussed with patient could be infectious versus more inflammatory. At this time will try steroids she states she does not typically tolerate oral antibiotics well in her labs and recent symptoms do not lead me to think that infectious is a more likely cause. All questions were answered. Discharge Plan Departure Patient Disposition: Home Clinical Impression: Colitis Instructions: DI for Colitis Activity Restrictions/Additional Instructions: Follow up with your physician in the next week for recheck. Your imaging today shows signs of possible colitis or inflammation of the colon which is likely causing your pain. Take steroids until gone. Follow-up with gastroenterology for recheck. Prescription to [facility] in [place]. Please return for fevers, rapidly worsening pain, persistent vomiting, black or bloody stools, lightheadedness or passing out, new issues with urination or unable to urinate or other new or concerning symptoms. Prescriptions: New prednisone 50 mg tablet 50 mg PO DAILY Qty: 5 RF: 0 hydrocodone-acetaminophen 5-325 mg tablet 1 tab PO Q6H PRN (Reason: pain) Qty: 10 RF: 0 No Action medroxyprogesterone [Depo-Provera] 150 mg/mL suspension 150 mg IM [id number] RF: 0 dicyclomine 10 mg/5 mL solution 10 mg PO TID PRN (Reason: abdominal pain) Qty: 473 RF: 0 loperamide [Imodium A-D] 2 mg capsule 2 mg PO DAILY RF: 0 hydrocodone-acetaminophen 5-325 mg tablet 1 tab PO Q6H PRN (Reason: pain) Qty: 14 RF: 0 ibuprofen 600 mg tablet 600 mg PO Q6H PRN (Reason: fever or pain) Qty: 20 RF: 0 ondansetron 4 mg tablet,disintegrating 4 mg PO Q8H PRN (Reason: nausea and vomiting) Qty: 10 RF: 0 Referrals: Sabina Richard ARNP [Primary Care Provider] - Stand Alone Forms: Work Release Note
[2021-04-15 10:51] LABS: Basophils Absolute Auto 100 /uL (0-100); Basophils Percent Auto 0.5 % (0-2); Eosinophils Absolute Auto 200 /uL (0-450); Eosinophils Percent Auto 2.1 % (2-4); Hemoglobin 14.6 g/dL (12.0-16.0); Lymphocytes Absolute Auto 4600 /uL (1100-4500); Lymphocytes Percent Auto 37.9 % (25-40); Mean Corpuscular Hemoglobin 32.4 PG (26-34); Mean Corpuscular Volume 95.3 fL (80-100); Monocytes Absolute Auto 500 /uL (0-900); Monocytes Percent Auto 4.3 % (3-14); Neutrophils Absolute Auto 6700 /uL (1500-7000); Neutrophils Percent Auto 55.2 % (50-75); Red Blood Cell Count 4.51 X10^6/uL (4.0-5.2); Red Cell Distribution Width 13.5 % (11.6-14.8); White Blood Cell Count 12.1 X10^3/uL (4.5-11.0)
[2021-04-15] MEDS: ONDANSETRON 4 MG/2 ML INJ IV (10:58)
[2021-04-15 10:59] LABS: Procalcitonin 0.04 ng/mL (<0.5)
[2021-04-15] MEDS: KETOROLAC 30 MG/ML VIAL 15 MG IV (10:59)
[2021-04-15] MEDS: SODIUM CHLORIDE 0.9% 1,000 ML 1000 ML IV (10:59)
[2021-04-15] MEDS: MORPHINE 4 MG/ML INJ IV (11:39)
[2021-04-15 11:53] LABS: Add Manual Diff / Slide Review SLIDE REVIEW; Platelet Estimate Adequate on smear; RBC Morphology Normal Morphology
--- NOTE | 2021-04-15 11:55 | DI.CT.S_ITS ---
PROCEDURE: CT ABDOMEN PELVIS W CON INDICATIONS: abd pain, urinary s/s hx of colitis in past. TECHNIQUE: After the administration of intravenous contrast, axial sections acquired from the lung bases to the pubic symphysis. Coronal and sagittal reformats were performed. For radiation dose reduction, the following was used: automated exposure control, adjustment of mA and/or kV according to patient size. COMPARISON: [facility], CT, CT ABDOMEN PELVIS W CON, 02/20/2021, 12:50. FINDINGS: Image quality: Excellent. Lung bases: Unremarkable. Heart: No significant findings. ABDOMEN: Liver: Unremarkable. Gallbladder: Unremarkable. Biliary ducts: Unremarkable. Pancreas: Unremarkable. Spleen: Unremarkable. Adrenal Glands: Unremarkable. Kidneys and Ureters: Unremarkable. Stomach and Bowel: Stomach, and small bowel loops are unremarkable. Appendix is visualized and is within normal limits. There is suggestion of wall thickening involving distal descending colon and throughout sigmoid colon without significant mesenteric fat stranding. No abscess collection. Mild sigmoid diverticulosis is seen. Peritoneum: No abnormal intraperitoneal fluid. No free air. Ventral Wall: No hernias. Abdominal Nodes: No retroperitoneal or mesenteric adenopathy by size criteria. Vessels: Aorta and inferior vena cava are normal in size. PELVIS: Pelvic Organs: Unremarkable. Bladder: Unremarkable. Pelvic Nodes: No enlarged lymph nodes. Miscellaneous: No hernias are seen. Bones: Unremarkable. IMPRESSION: 1. Questionable very low-grade distal descending and sigmoid colitis versus under distension. No abscess collection. No free fluid or free air. Mild sigmoid diverticulosis without evidence of acute diverticulitis. 2. Normal appendix. No bowel obstruction. 3. Rest of the exam is unremarkable. Dictated by: Saúl Galvez M.D. on 04/15/2021 at 12:13 Approved by: Saúl Galvez M.D. on 04/15/2021 at 12:17
[2021-04-15 12:05] LABS: Bacteria Urine Moderate (10-30); Culture Indicated Urine Cult Not Indicated; RBC Urine 0-1/HPF (0-5/HPF); Squamous Epithelial Cell Urine 5-10 /HPF (0-5/HPF); WBC Urine 1-5/HPF (0-5/HPF)
[2021-04-15 13:12] VITALS: BP 132/69; PULSE 89; RESP 16
== END 2021-04-15 13:13 | disposition home or self-care (01) ==
PROVIDERS: Emergency Provider Emergency Medicine; PCP Nurse Practitioner
DX: K52.9 Noninfective gastroenteritis and colitis, unspecified (principal)
CPT/HCPCS: 36415; 74177; 80053; 81003; 81015; 81025; 83605; 83690; 84145; 85025; 96361; 96374; 96375; 99284; J1885; J2270; J2405

== ENCOUNTER 2021-07-20 06:53 | Emergency (ER) | payer OTHER, MEDICAID, SELFPAY ==
--- NOTE | 2021-07-20 07:03 | DI.RAD.S_ITS ---
PROCEDURE: XR HAND RT MIN 3V INDICATIONS: injury to hand with swelling TECHNIQUE: 3 views of the hand(s) acquired. COMPARISON: None. FINDINGS: Bones: No fractures or dislocations. Carpal bones are normally aligned. No suspicious bony lesions. Soft tissues: Mild generalized soft tissue swelling is seen. IMPRESSION: Soft tissue swelling is seen, without an acute bony abnormality seen by plain film. If there is point tenderness (or other clinical suspicion for a fracture not seen on these images) then a dedicated CT or a short-term followup plain film series could be considered for further evaluation, as clinically appropriate. Dictated by: Skip Gastelum M.D. on 07/20/2021 at 7:02 Approved by: Skip Gastelum M.D. on 07/20/2021 at 7:03
[2021-07-20 07:04] VITALS: BP 134/78; PULSE 102; RESP 15; TEMP 36.8; O2SAT 98; BMI 29.2
--- NOTE | 2021-07-20 07:52 | ED_ITS ---
HPI - General Adult General Chief complaint: Extremity Injury, Upper Stated complaint: right thumb and wrist hurts Time Seen by Provider: 07/20/21 06:57 Source: patient Mode of arrival: Ambulatory Limitations: no limitations History of Present Illness HPI narrative: Patient is a 31-year-old female here for evaluation of a right thumb injury. She states that a couple days ago she was moving around a stack of bread on a wheeled cart when she states that her thumb got stuck in the cart. She states that it bent backwards. Since that time she has had continued discomfort. No prior injuries. Related Data Home Medications Medication Instructions Recorded Confirmed medroxyprogesterone 150 mg/mL 150 mg IM [id number] 04/07/18 05/15/21 intramuscular suspension (Depo-Provera) Digestive Gummy Probiotic 2 ea PO BEDTIME 04/24/21 05/15/21 colestipol 1 gram tablet 1 g PO BID tab 04/24/21 05/15/21 diphenhydramine 25 2 tab PO BEDTIME PRN tab 04/24/21 05/15/21 mg-acetaminophen 500 mg tablet (Tylenol PM Extra Strength) melatonin 5 mg tablet 10 mg PO BEDTIME PRN 04/24/21 05/15/21 mirtazapine 15 mg tablet 15 mg PO BEDTIME tab 04/24/21 05/15/21 pantoprazole 40 mg tablet,delayed 40 mg PO DAILY tab 04/24/21 05/15/21 release amitriptyline 25 mg tablet 25 mg PO DAILY 05/15/21 05/15/21 gabapentin 300 mg capsule 1,800 mg PO DAILY cap 05/15/21 05/15/21 Previous Rx's Medication Instructions Recorded metronidazole 250 mg tablet 500 mg PO BID #28 tab 05/15/21 lidocaine 5 % topical patch 1 patch TOPICAL DAILY 10 Days #15 05/29/21 (Lidoderm) ea naproxen 500 mg tablet (Naprosyn) 500 mg PO BID PRN #60 tab 05/29/21 Allergies Allergy/AdvReac Type Severity Reaction Status Date / Time doxycycline AdvReac n/v Verified 05/02/21 15:02 guaifenesin [From Mucinex] AdvReac n/v Verified 05/02/21 15:02 trazodone AdvReac mental Verified 05/02/21 15:02 status changes Review of Systems Musculoskeletal Comments: Right thumb pain with swelling Integumentary/Breasts Skin/Breast: Reports system reviewed and no additional complaints, except as documented Neurologic Neurologic: Reports system reviewed and no additional complaints, except as documented Hematologic/Lymphatic On Anticoagulants: No Patient History Medical History Dyspareunia Dysplasia of cervix, low grade (BOBBI 1) Ovarian cyst Surgical History (Updated 05/15/21 @ 10:46 by Marlyn Alvarenga MD) H/O laparoscopy (~09/22/19) History of colposcopy (04/07/18) S/P wisdom tooth extraction Social History Smoking Status: Current every day smoker alcohol intake: current Smoking Status: Current every day smoker tobacco type: cigarettes alcohol intake frequency: other Substance Use Type: marijuana Exam Initial Vital Signs Initial Vital Signs: Vital Signs Temperature 98.3 F 07/20/21 07:04 Pulse Rate 102 H 07/20/21 07:04 Respiratory Rate 15 07/20/21 07:04 Blood Pressure 134/78 07/20/21 07:04 Pulse Oximetry 98 07/20/21 07:04 Const General: cooperative and comfortable HENMT Head: normal to inspection and normocephalic Cardio Pulses: radial pulses present on the right Skin General: no rashes or lesions noted Neuro General: patient alert, patient awake and moves all extremities Sensory Exam: no sensory deficits noted Other: Patient able to flex and extend and also abduct and adduct the right thumb. She can also place the thumb in opposition. Extrem Other: Patient does have tenderness to palpation over the MCP joint of the right thumb. Her IP joint is unremarkable. Her wrist is unremarkable. The rest of her hand and fingers unremarkable. Procedures Orthopedic Splinting/Casting Injury #1: Side: right Upper Extremity Injury Location: wrist Upper Extremity Immobilizer: thumb spica Post splinting neuro exam: no change Post splinting vascular exam: no change Placed by: Nursing Course Orders Ordered: ED Orders 07/20/21 07:03 XR hand RT min 3V Stat Vital Signs Vital signs: Vital Signs - 8 hr 07/20/21 07:04 07/20/21 07:57 Temperature 98.3 F Pulse Rate 102 H 100 H Respiratory Rate 15 18 Blood Pressure 134/78 134/78 Pulse Oximetry 98 100 Medical Decision Making Imaging Data Extremity x-ray #1: Radiologist's Impression: No acute fracture or dislocation MDM Narrative Medical decision making narrative: Patient is neurovascularly intact. Afebrile. Her x-ray shows no signs of fracture or dislocation. She is tender to palpation over the MCP joint of the right thumb. She did remove the rings on her right hand was told to keep these off until the swelling has resolved. Was sent home with a removable wrist splint. Was given return precautions. She exp ressed understanding and agreement. Discharge Plan Departure Patient Disposition: Home Clinical Impression: Strain of right thumb Instructions: How To Perform RICE (Rest, Ice, Compress, Elevate) Activity Restrictions/Additional Instructions: There were no fractures noted on the x-rays. The splint is for your comfort. You can take it off to shower and wash your hands. Once you start to feel better you can discontinue the use of it. Contact your primary doctor for a follow-up. Return to the emergency department for any new or worsening symptoms Prescriptions: No Action lidocaine [Lidoderm] 5 % adhesive patch,medicated 1 patch topical DAILY 10 Days Qty: 15 RF: 1 naproxen [Naprosyn] 500 mg tablet 500 mg PO BID PRN (Reason: pain) Qty: 60 RF: 1 medroxyprogesterone [Depo-Provera] 150 mg/mL suspension 150 mg IM [id number] RF: 0 mirtazapine 15 mg tablet 15 mg PO BEDTIME RF: 0 pantoprazole 40 mg tablet,delayed release (DR/EC) 40 mg PO DAILY RF: 0 colestipol 1 gram tablet 1 g PO BID RF: 0 diphenhydramine-acetaminophen [Tylenol PM Extra Strength] 25-500 mg tablet 2 tab PO BEDTIME PRNRF: 0 melatonin 5 mg tablet 10 mg PO BEDTIME PRNRF: 0 Digestive Gummy Probiotic 2 ea PO BEDTIME RF: 0 gabapentin 300 mg capsule 1,800 mg PO DAILY RF: 0 amitriptyline 25 mg tablet 25 mg PO DAILY RF: 0 metronidazole 250 mg tablet 500 mg PO BID Qty: 28 RF: 1 Referrals: Prem Caro MD [Primary Care Provider] - Stand Alone Forms: Work Release Note
[2021-07-20 07:57] VITALS: BP 134/78; PULSE 100; RESP 18; O2SAT 100
== END 2021-07-20 08:25 | disposition home or self-care (01) ==
PROVIDERS: Emergency Provider Emergency Medicine; PCP Student in an Organized Health Care Education/Training Program
DX: S63.601A Unspecified sprain of right thumb, initial encounter (principal); W22.8XXA Striking against or struck by other objects, initial encounter
CPT/HCPCS: 73130; 99283

== ENCOUNTER → 2021-08-08 09:25 | Outpatient (CLI) | payer OTHER, MEDICAID, SELFPAY ==
--- NOTE | 2021-08-08 09:27 | DI.RAD.S_ITS ---
PROCEDURE: XR SHOULDER RT MIN 2V INDICATIONS: Shoulder pain TECHNIQUE: 3 views of the shoulder were acquired. COMPARISON: None. FINDINGS: Bones: No fractures or dislocations. No suspicious bony lesions. Visualized ribs appear intact. Soft tissues: Coarse and punctate calcifications overlie the humeral head, most consistent with calcific tendinopathy. IMPRESSION: Calcific tendinopathy. Dictated by: Hector Ramirez M.D. on 08/08/2021 at 11:01 Approved by: Hector Ramirez M.D. on 08/08/2021 at 11:02
== END ==
PROVIDERS: PCP Student in an Organized Health Care Education/Training Program; Referring Provider Student in an Organized Health Care Education/Training Program; Visit Provider Student in an Organized Health Care Education/Training Program
DX: M25.511 Pain in right shoulder (principal); M25.811 Other specified joint disorders, right shoulder
CPT/HCPCS: 73030

== ENCOUNTER 2021-09-21 05:57 | Emergency (ER) | payer OTHER, MEDICAID, SELFPAY ==
[2021-09-21 06:08] VITALS: BP 115/66; PULSE 112; RESP 16; O2SAT 98
--- NOTE | 2021-09-21 06:33 | ED_ITS ---
HPI - Recheck/Abnormal Lab/Rx General Chief Complaint: Recheck/Abnormal Lab/Rx Stated Complaint: right arm pain Time Seen by Provider: 09/21/21 06:33 Source: patient Mode of arrival: Ambulatory Limitations: no limitations History of Present Illness HPI narrative: 31-year-old woman with history of recurrent right shoulder pain had been seeing Dr. Friend but apparently has been discharged from his practice. She currently is using Naprosyn, Tylenol and lidocaine patches and is not finding much relief from the shoulder pain. She had an x-ray in August that suggested she had calcific tendinitis. She was hoping to get into physical therapy however after being dropped from her primary care provider's practice she has not been able to follow-up with physical therapy. She currently is seen by counselor and psyc hiatric provider at [facility] who is out on maternity leave and not expected to return until November so she is having difficulty getting her psychiatric medications refilled as well. At this point she is hurting and frustrated that she can not access the care that she would like to. She comes to the emergency room seeking help Related Data Home Medications Medication Instructions Recorded Confirmed Digestive Gummy Probiotic 2 ea PO BEDTIME 04/24/21 08/08/21 colestipol 1 gram tablet 1 g PO BID tab 04/24/21 08/08/21 diphenhydramine 25 2 tab PO BEDTIME PRN tab 04/24/21 08/08/21 mg-acetaminophen 500 mg tablet (Tylenol PM Extra Strength) melatonin 5 mg tablet 10 mg PO BEDTIME PRN 04/24/21 08/08/21 pantoprazole 40 mg tablet,delayed 40 mg PO DAILY tab 04/24/21 08/08/21 release Previous Rx's Medication Instructions Recorded lidocaine 5 % topical patch 1 patch TOPICAL DAILY 10 Days #15 05/29/21 (Lidoderm) ea naproxen 500 mg tablet (Naprosyn) 500 mg PO BID PRN #60 tab 05/29/21 gabapentin 800 mg tablet 800 mg PO BID #180 tab 08/08/21 mirtazapine 15 mg tablet 15 mg PO BEDTIME #90 tab 08/08/21 Ambien CR 6.25 mg tablet,extended 6.25 mg PO BEDTIME PRN #30 tab NS 08/19/21 release (zolpidem) Allergies Allergy/AdvReac Type Severity Reaction Status Date / Time doxycycline AdvReac n/v Verified 09/14/21 12:20 guaifenesin [From Mucinex] AdvReac n/v Verified 09/14/21 12:20 trazodone AdvReac mental Verified 09/14/21 12:20 status changes Review of Systems Review of Systems Narrative: Pertinent positive and negative findings as per HPI Remainder of review of systems is otherwise unremarkable for Constitutional: Fevers, chills, weakness ENT: No sore throat, neck pain, ear pain CV: Chest pain, palpitations, Respiratory: Cough, wheeze, dyspnea GI: Nausea, vomiting, diarrhea, Patient History Medical History (Updated 09/21/21 @ 06:53 by Silvia Cisneros MD) Bacterial vaginosis Calcific tendinitis of right shoulder Dyspareunia Dysplasia of cervix, low grade (BOBBI 1) Ovarian cyst Surgical History H/O laparoscopy (~09/22/19) History of colposcopy (04/07/18) S/P wisdom tooth extraction Social History Smoking Status: Current every day smoker alcohol intake: current Smoking Status: Current every day smoker tobacco type: cigarettes alcohol intake frequency: other Substance Use Type: marijuana Exam Narrative Exam Narrative: General: Alert appropriate in no acute distress Respiratory: Able to speak in full sentences, no obvious respiratory distress Skin: No obvious rashes, warm and dry Neurologic: Grossly intact no obvious asymmetries or abnormalities Psych: appropriate insight and affect, cooperative Extremity: Mild inflammation to the anterior portion of the right shoulder with pain along the anterior portion of the rotator cuff. She is able to completely extend and rotate her right arm however there are some pain issues involved. She is neurovascularly intact. There is no specific trapezius muscle spasm and no tenderness along the cervical spine. Initial Vital Signs Initial Vital Signs: Vital Signs Pulse Rate 112 H 09/21/21 06:08 Respiratory Rate 16 09/21/21 06:08 Blood Pressure 115/66 09/21/21 06:08 Pulse Oximetry 98 09/21/21 06:08 Course Orders Ordered: Discontinued Medications Ketorolac Tromethamine (Ketorolac 30 Mg/Ml Vial) 30 mg IM NOW ONE Stop: 09/21/21 06:46 Last Admin: 09/21/21 06:50 Dose: 30 mg Documented by: Vital Signs Vital signs: Vital Signs - 8 hr 09/21/21 06:08 Pulse Rate 112 H Respiratory Rate 16 Blood Pressure 115/66 Pulse Oximetry 98 [facility] - Recheck/Abnormal Lab/Rx Imaging Data Shoulder x-ray from August 2021: Radiologist's Impression: FINDINGS:? ? Bones:? No fractures or dislocations.? No suspicious bony lesions.? Visualized ribs appear intact.? ? Soft tissues:? Coarse and punctate calcifications overlie the humeral head, most consistent with calcific tendinopathy. ? IMPRESSION:? Calcific tendinopathy.? ? ? Dictated by: Hector Ramirez M.D. on 08/08/2021 at 11:01 ? ? [facility] Narrative Medical decision making narrative: 31-year-old woman with chronic psychiatric issues trying to get help in filling her medications and ran into issues with her primary care provider and arguments over medication doses. Because of that she has been discharged from his practice. She also has what appears to be right shoulder calcific tendinitis with increased pain. She works at [employer] in the repetitive use at this job tends to make that even worse. She was hoping to get physical therapy but now needs to find a primary care provider to do so. She currently is using appropriate doses of Naprosyn Tylenol and gabapentin both for chronic pain and gabapentin for anxiety. She was open to the suggestion of a Toradol injection today and a sling to help offload some of the pain. She is given a prescription from the ER for physical therapy and she will call and see if she can find a group that will take that. She will continue to pursue other avenues for stab wishing a primary care provider. She is safe for home discharge at this time Discharge Plan Departure Patient Disposition: Home Clinical Impression: Right shoulder pain, Calcific tendinitis of right shoulder Instructions: Calcific Tendonitis of the Shoulder Activity Restrictions/Additional Instructions: I am sorry that your having such a difficult time with your shoulder I have given you a prescription for physical therapy, you can call individual groups to see if they take your insurance and will take physical therapy referral from the emergency department In the emergency department today, I have given you a shot of Toradol to help with pain today so he can get some sleep and also given you a sling to try to unload some of the pressure from that right shoulder. You can call [phone] and ask them which providers are taking [facility] group and have openings in their panel to see if you can find a new primary care provider Do continue with the gabapentin, naproxen and Tylenol as well as lidocaine patches for the shoulder pain. I hope that you are able to get in to see a physical therapist as I think this is going to be the most effective treatment for you. I wish you the best in finding any primary care doctor Prescriptions: No Action lidocaine [Lidoderm] 5 % adhesive patch,medicated 1 patch topical DAILY 10 Days Qty: 15 1RF Rx Instructions: leave on most painful area for up to 12 hrs naproxen [Naprosyn] 500 mg tablet 500 mg PO BID PRN (Reason: pain) Qty: 60 1RF zolpidem [Ambien CR] 6.25 mg tablet,ext release multiphase 6.25 mg PO BEDTIME PRN (Reason: insomnia) Qty: 30 2RF pantoprazole 40 mg tablet,delayed release (DR/EC) 40 mg PO DAILY 0RF colestipol 1 gram tablet 1 g PO BID 0RF diphenhydramine-acetaminophen [Tylenol PM Extra Strength] 25-500 mg tablet 2 tab PO BEDTIME PRN0RF melatonin 5 mg tablet 10 mg PO BEDTIME PRN0RF Rx Instructions: Gummy Form per patient. Digestive Gummy Probiotic 2 ea PO BEDTIME 0RF mirtazapine 15 mg tablet 15 mg PO BEDTIME Qty: 90 1RF gabapentin 800 mg tablet 800 mg PO BID Qty: 180 1RF Referrals: Miscellaneous,Doctor, MD [Primary Care Provider] - Stand Alone Forms: Work Release Note
[2021-09-21] MEDS: KETOROLAC 30 MG/ML VIAL IM (06:50)
== END 2021-09-21 07:00 | disposition home or self-care (01) ==
PROVIDERS: Emergency Provider Emergency Medicine
DX: M75.31 Calcific tendinitis of right shoulder (principal); M25.511 Pain in right shoulder
CPT/HCPCS: 99282; 99283; J1885

== ENCOUNTER 2021-10-13 11:14 | Emergency (ER) | payer OTHER, MEDICAID, SELFPAY ==
[2021-10-13 11:35] VITALS: BP 111/63; PULSE 77; RESP 16; TEMP 36.2; O2SAT 98; BMI 31.6
[2021-10-13 12:04] LABS: COVID19 -Nasal RAPID Negative (Negative)
--- NOTE | 2021-10-13 12:43 | ED.NAVMDI ---
HPI - Nausea/Vomiting/Diarrhea <Christa Gaytan [employer] FINISHER - Last Filed: 10/13/21 16:56> General Chief complaint: Abdominal Pain Stated complaint: Bad reaction to Gardasil Vac on Time Seen by Provider: 10/13/21 12:05 Source: patient Mode of arrival: Ambulatory History of Present Illness HPI Narrative: [age] year female presents to the emergency department today with complaint of feeling poorly after her Gardasil vaccine on , she reports she also had medication changes including coming off of her 3600 mg per day gabapentin without a taper, starting BuSpar, pazosyn, Strattera. Patient has multiple complaints including a low-grade subjective fever last night, nausea vomiting all night, she reports she did take her home Zofran which did not help, she has also taken Pepto-Bismol without relief. She denies any diarrhea, she denies a runny nose, cough, chest pain, shortness of breath, abdominal pain, dysuria, or any other complaint. She reports that her work made her come in and get a COVID test before returning to work. She reports that she has never come off of her gabapentin before, and her provider did not taper her off of it, she reports she has been off of it since . Related Data Home Medications Medication Instructions Recorded Confirmed Digestive Gummy Probiotic 2 ea PO BEDTIME 04/24/21 08/08/21 colestipol 1 gram tablet 1 g PO BID tab 04/24/21 08/08/21 diphenhydramine 25 2 tab PO BEDTIME PRN tab 04/24/21 08/08/21 mg-acetaminophen 500 mg tablet (Tylenol PM Extra Strength) melatonin 5 mg tablet 10 mg PO BEDTIME PRN 04/24/21 08/08/21 pantoprazole 40 mg tablet,delayed 40 mg PO DAILY tab 04/24/21 08/08/21 release Previous Rx's Medication Instructions Recorded lidocaine 5 % topical patch 1 patch TOPICAL DAILY 10 Days #15 05/29/21 (Lidoderm) ea naproxen 500 mg tablet (Naprosyn) 500 mg PO BID PRN #60 tab 05/29/21 gabapentin 800 mg tablet 800 mg PO BID #180 tab 08/08/21 mirtazapine 15 mg tablet 15 mg PO BEDTIME #90 tab 08/08/21 Ambien CR 6.25 mg tablet,extended 6.25 mg PO BEDTIME PRN #30 tab NS 08/19/21 release (zolpidem) promethazine 12.5 mg tablet 12.5 mg PO BID PRN #10 tab 10/13/21 Allergies Allergy/AdvReac Type Severity Reaction Status Date / Time doxycycline AdvReac n/v Verified 09/14/21 12:20 guaifenesin [From Mucinex] AdvReac n/v Verified 09/14/21 12:20 trazodone AdvReac mental Verified 09/14/21 12:20 status changes Review of Systems <ALDO Velasco - Last Filed: 10/13/21 16:56> Review of Systems Narrative: General: Endorses subjective fever, fatigue, denies chills Head/Neck: denies headache, neck pain Eyes: denies visual changes, eye pain Cardio: denies chest pain, palpitations Respiratory: denies shortness of breath, cough GI: denies abdominal pain or diarrhea, endorses nausea, vomiting since yesterday : denies dysuria, hematuria MSK: denies joint pain, muscle weakness Skin: denies rash, itching Neuro: denies numbness, tingling Patient History <ALDO Velasco - Last Filed: 10/13/21 16:56> Medical History Bacterial vaginosis Calcific tendinitis of right shoulder Dyspareunia Dysplasia of cervix, low grade (BOBBI 1) Ovarian cyst Surgical History H/O laparoscopy (~09/22/19) History of colposcopy (04/07/18) S/P wisdom tooth extraction Social History Smoking Status: Current every day smoker alcohol intake: current Smoking Status: Current every day smoker tobacco type: cigarettes alcohol intake frequency: other Substance Use Type: marijuana Exam <ALDO Velasco - Last Filed: 10/13/21 16:56> Narrative Exam Narrative: Independently reviewed vitals signs and nursing notes. General: Awake, alert, nontoxic, no cardiorespiratory distress, patient appears fatigued Head/Neck: Atraumatic, neck full range of motion Eyes: EOMI, conjunctiva normal Nose: nares patent, no rhinorrhea Mouth/Throat: moist mucus membranes, posterior pharynx normal, no oral lesions Cardio: Regular rate and rhythm, no peripheral edema Respiratory: respirations unlabored without wheezing, stridor, or rales. No retractions. GI: Abdomen soft, nontender to palpation, no masses, no CVA tenderness MSK: Moves all extremities, neurovascularly intact Skin: Normal capillary refill, no rash Neuro: Normal speech and cognition, normal gait Initial Vital Signs Initial Vital Signs: Vital Signs Temperature 97.1 F L 10/13/21 11:35 Pulse Rate 77 10/13/21 11:35 Respiratory Rate 16 10/13/21 11:35 Blood Pressure 111/63 10/13/21 11:35 Pulse Oximetry 98 10/13/21 11:35 Course <ALDO Velasco - Last Filed: 10/13/21 16:56> Orders Ordered: ED Orders 10/13/21 11:41 COVID19 -Nasal swab/Pre-Proc Stat 10/13/21 12:40 UA Complete [Urinalysis and Microscopic] Stat 10/13/21 12:49 CBC Auto Diff [Complete Blood Count AUTO DIFF] Stat CMP [Comprehensive Metabolic Panel] Stat Discontinued Medications Sodium Chloride (Normal Saline 0.9%) 1,000 mls @ 1,000 mls/hr IV BOLUS ONE Stop: 10/13/21 13:27 Last Infusion: 10/13/21 13:59 Dose: 0 mls/hr Documented by: Admin: 10/13/21 12:59 Dose: 1,000 mls/hr Documented by: GINA Ketorolac Tromethamine (Ketorolac 30 Mg/Ml Vial) 15 mg IV NOW ONE Stop: 10/13/21 13:38 Last Admin: 10/13/21 13:59 Dose: 15 mg Documented by: FAIZAN Ondansetron HCl (Ondansetron 4 Mg/2 Ml Inj) 4 mg IV NOW ONE Stop: 10/13/21 12:29 Last Admin: 10/13/21 12:59 Dose: 4 mg Documented by: GINA Promethazine HCl (Promethazine 25 Mg Tablet) 12.5 mg PO NOW ONE Stop: 10/13/21 13:38 Last Admin: 10/13/21 13:57 Dose: 12.5 mg Documented by: FAIZAN Vital Signs Vital signs: Vital Signs - 8 hr 10/13/21 11:35 Temperature 97.1 F L Pulse Rate 77 Respiratory Rate 16 Blood Pressure 111/63 Pulse Oximetry 98 MDM - Nausea/Vomiting/Diarrhea <INNA VelascoP - Last Filed: 10/13/21 16:56> Lab Data Result diagrams: 10/13/21 12:49 10/13/21 12:49 Labs: Lab Results 10/13/21 10/13/21 10/13/21 Range/Units 11:41 12:40 12:49 WBC 14.6 H (4.5-11.0) X10^3/uL RBC 4.69 (4.0-5.2) X10^6/uL Hgb 15.0 (12.0-16.0) g/dL Hct 43.9 (36-46) % MCV 93.4 (80-100) fL MCH 32.0 (26-34) PG MCHC 34.3 (30-36) % RDW 13.3 (11.6-14.8) % Plt Count 209 (150-400) X10^3/uL Neut % (Auto) 63.1 (50-75) % Lymph % (Auto) 28.1 (25-40) % [place] % (Auto) 6.7 (3-14) % Eos % (Auto) 1.6 L (2-4) % Baso % (Auto) 0.5 (0-2) % Neut # (Auto) 9200 H (8425-3882) /uL Lymph # (Auto) 4100 (0212-0754) /uL Catron # (Auto) 1000 H (0-900) /uL Eos # (Auto) 200 (0-450) /uL Baso # (Auto) 100 (0-100) /uL Sodium (137-145) mmol/L Potassium (3.4-5.1) mmol/L Chloride (98-107) mmol/L Carbon Dioxide (22-32) mmol/L BUN (7-17) mg/dL Creatinine (0.52-1.04) mg/dL Estimated GFR (>60) mL/min BUN/Creatinine Ratio (6-22) Glucose (70-100) mg/dL Calcium (8.4-10.2) mg/dL Total Bilirubin (0.2-1.3) mg/dL AST (14-36) IU/L ALT (<35) IU/L Alkaline Phosphatase (38-126) U/L Total Protein (6.3-8.2) g/dL Albumin (3.5-5.0) g/dL Globulin (1.7-4.1) g/dL Albumin/Globulin Ratio (1.0-2.8) Urine Color Yellow Urine Appearance Clear Urine pH 6.5 (4.5-8.0) Ur Specific [place] 1.025 (1.000-1.035) Urine Protein Trace H (Negative) Urine Glucose (UA) Negative (Negative) g/dL Urine Ketones Negative (NEGATIVE) Urine Occult Blood Trace-lysed (Negative) Urine Nitrate Negative (Negative) Urine Bilirubin Negative (NEGATIVE) Urine Urobilinogen 0.2 (0.2) E.U./dL Ur Leukocyte Esterase Negative (NEGATIVE) Urine RBC 0-1/hpf (0-5/HPF) Urine WBC 0-1/hpf (0-5/HPF) Ur Squamous Epith Cells 1-5 /hpf (0-5/HPF) Amorphous Sediment 2+ Urine Bacteria None seen (None) Urine Mucus 2+ H (Negative) Ur Culture Indicated? Cult not indicated SARS-CoV-2 (PCR) Negative (Negative) 10/13/21 Range/Units 12:49 WBC (4.5-11.0) X10^3/uL RBC (4.0-5.2) X10^6/uL Hgb (12.0-16.0) g/dL Hct (36-46) % MCV (80-100) fL MCH (26-34) PG MCHC (30-36) % RDW (11.6-14.8) % Plt Count (150-400) X10^3/uL Neut % (Auto) (50-75) % Lymph % (Auto) (25-40) % Catron % (Auto) (3-14) % Eos % (Auto) (2-4) % Baso % (Auto) (0-2) % Neut # (Auto) (6952-1002) /uL Lymph # (Auto) (1033-0067) /uL Catron # (Auto) (0-900) /uL Eos # (Auto) (0-450) /uL Baso # (Auto) (0-100) /uL Sodium 141 (137-145) mmol/L Potassium 3.8 (3.4-5.1) mmol/L Chloride 106 (98-107) mmol/L Carbon Dioxide 29 (22-32) mmol/L BUN 15 (7-17) mg/dL Creatinine 0.69 (0.52-1.04) mg/dL Estimated GFR > 60.0 (>60) mL/min BUN/Creatinine Ratio 21.7 (6-22) Glucose 88 (70-100) mg/dL Calcium 9.5 (8.4-10.2) mg/dL Total Bilirubin 0.5 (0.2-1.3) mg/dL AST 23 (14-36) IU/L ALT 23 (<35) IU/L Alkaline Phosphatase 51 (38-126) U/L Total Protein 7.1 (6.3-8.2) g/dL Albumin 4.3 (3.5-5.0) g/dL Globulin 2.8 (1.7-4.1) g/dL Albumin/Globulin Ratio 1.5 (1.0-2.8) Urine Color Urine Appearance Urine pH (4.5-8.0) Ur Specific [place] (1.000-1.035) Urine Protein (Negative) Urine Glucose (UA) (Negative) g/dL Urine Ketones (NEGATIVE) Urine Occult Blood (Negative) Urine Nitrate (Negative) Urine Bilirubin (NEGATIVE) Urine Urobilinogen (0.2) E.U./dL Ur Leukocyte Esterase (NEGATIVE) Urine RBC (0-5/HPF) Urine WBC (0-5/HPF) Ur Squamous Epith Cells (0-5/HPF) Amorphous Sediment Urine Bacteria (None) Urine Mucus (Negative) Ur Culture Indicated? SARS-CoV-2 (PCR) (Negative) Point of Care Testing Test Results Negative Urine Dip Bedside Urine Glucose Negative Bedside Urine Bilirubin - Negative Bedside Urine Ketone - Negative Urine Specific [place] 1.030 Bedside Urine Occult Blood - Negative Bedside Urine pH 6.0 Bedside Urine Protein - Negative Bedside Urine Urobilinogen - Negative Bedside Urine Nitrite - Negative Bedside Urine Leukocytes - Negative Esterase [facility] Narrative Medical decision making narrative: 31-year-old female presented to the emergency department complaining of nausea and vomiting since yesterday, fatigue since her Gardasil vaccination on , subjective low-grade fever which started Thursday, today is Thursday. Patient also reports that she was instructed to discontinue taking her 3600 mg of gabapentin each day without a taper. I presume her complaints are likely related to both her vaccination including the low-grade fever and fatigue. I do think that her stopping gabapentin cold turkey caused a gabapentin withdrawal, and her nausea and vomiting is related to this and possibly her fatigue as well. Her COVID antigen was negative, lab work was completed without any pertinent findings. Patient was given Zofran and 1 L of NS for dehydration, she reports this did not improve her nausea, she was then given p.o. Phenergan which she reports made her feel much better, she also received Toradol IV which she endorses reducing her pain and now she feels ready to discharge home. She was prescribed a short course of Phenergan as needed if she continues to have nausea and vomiting. Differential includes post vaccination syndrome, gabapentin withdrawal, adverse reactions to new medications. She did not have any abdominal pain, her UA was negative for infection, no other pertinent findings. Patient is appropriate and amenable to discharge home. Vital signs are stable on repeat examination is unremarkable. Patient has been informed of results. Patient has been given strict return to ER precautions for any new or worsening symptoms. Patient understands to follow up closely with outpatient providers as instructed. Patient understands plan and agrees to discharge home. All questions and concerns answered at this time. 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 Your COVID test was negative today, please follow-up with your primary care provider for close monitoring of your medications and the reactions that you are having to them. Please return to work when you feel able to do so, I have given you a work note for the next 2 days. I called in some Phenergan to the [facility] here in and reported. Please take this if your Zofran is not helpful. Please try and stay hydrated and have some food now that your nausea is improved. *What to do: *Please continue to take your regular medications as directed. [ ] New medication prescriptions sent to your pharmacy: [ ] [ ] New medication written as a paper prescription [ ] No new medications given *Please follow up with your primary care provider in 2-3 days, call for an appointment. Let them know you were seen in the Emergency Department and that we ask that you be seen in follow up. We will electronically transmit a record of today's note if your PCP is in our system *If you do not have a primary care provider please contact the [facility] Resource line at [phone]. They will ask some questions about your medical history and help get you set up with a doctor in the community. *Return to Emergency Department if you should have any new, worsening or concerning symptoms, such as [fever greater than 101F, chills, worsening pain, persistent vomiting or other bothersome symptoms] Prescriptions: New promethazine 12.5 mg tablet 12.5 mg PO BID PRN (Reason: nausea and vomiting) Qty: 10 0RF Rx Instructions: Please take if your Zofran is not helpful No Action lidocaine [Lidoderm] 5 % adhesive patch,medicated 1 patch topical DAILY 10 Days Qty: 15 1RF Rx Instructions: leave on most painful area for up to 12 hrs naproxen [Naprosyn] 500 mg tablet 500 mg PO BID PRN (Reason: pain) Qty: 60 1RF zolpidem [Ambien CR] 6.25 mg tablet,ext release multiphase 6.25 mg PO BEDTIME PRN (Reason: insomnia) Qty: 30 2RF pantoprazole 40 mg tablet,delayed release (DR/EC) 40 mg PO DAILY 0RF colestipol 1 gram tablet 1 g PO BID 0RF diphenhydramine-acetaminophen [Tylenol PM Extra Strength] 25-500 mg tablet 2 tab PO BEDTIME PRN0RF melatonin 5 mg tablet 10 mg PO BEDTIME PRN0RF Rx Instructions: Gummy Form per patient. Digestive Gummy Probiotic 2 ea PO BEDTIME 0RF mirtazapine 15 mg tablet 15 mg PO BEDTIME Qty: 90 1RF gabapentin 800 mg tablet 800 mg PO BID Qty: 180 1RF Referrals: Miscellaneous,Doctor, MD [Primary Care Provider] - Stand Alone Forms: Work Release Note
[2021-10-13] MEDS: SODIUM CHLORIDE 0.9% 1,000 ML 1000 ML IV (12:59)
[2021-10-13] MEDS: ONDANSETRON 4 MG/2 ML INJ IV (12:59)
[2021-10-13 13:00] LABS: Appearance Urine UA CLEAR; Bilirubin Urine UA NEGATIVE (NEGATIVE); Color Urine UA YELLOW; Glucose Urine UA NEGATIVE (Negative); Ketones Urine UA NEGATIVE (NEGATIVE); Leukocyte Esterase Urine UA NEGATIVE (NEGATIVE); Nitrite Urine UA NEGATIVE (Negative); Occult Blood Urine UA TRACE-LYSED (Negative); Protein Urine UA TRACE (Negative); Specific Gravity Urine UA 1.025 (1.000-1.035); Urobilinogen Urine UA 0.2 E.U./dL (0.2)
[2021-10-13 13:01] LABS: Add Manual Diff / Slide Review NO; Basophils Absolute Auto 100 /uL (0-100); Basophils Percent Auto 0.5 % (0-2); Eosinophils Absolute Auto 200 /uL (0-450); Eosinophils Percent Auto 1.6 % (2-4); Hematocrit 43.9 % (36-46); Lymphocytes Absolute Auto 4100 /uL (1100-4500); Lymphocytes Percent Auto 28.1 % (25-40); Mean Corpuscular HGB Conc 34.3 % (30-36); Mean Corpuscular Volume 93.4 fL (80-100); Monocytes Absolute Auto 1000 /uL (0-900); Monocytes Percent Auto 6.7 % (3-14); Neutrophils Absolute Auto 9200 /uL (1500-7000); Neutrophils Percent Auto 63.1 % (50-75); Platelet Count 209 X10^3/uL (150-400); Red Blood Cell Count 4.69 X10^6/uL (4.0-5.2); Red Cell Distribution Width 13.3 % (11.6-14.8); White Blood Cell Count 14.6 X10^3/uL (4.5-11.0)
[2021-10-13 13:04] LABS: pH Urine UA 6.5 (4.5-8.0)
[2021-10-13 13:06] LABS: Amorphous Sediment Urine 2+; Bacteria Urine None Seen; Culture Indicated Urine Cult Not Indicated; Mucus Urine 2+ (Negative); RBC Urine 0-1/HPF (0-5/HPF); Squamous Epithelial Cell Urine 1-5 /HPF (0-5/HPF); WBC Urine 0-1/HPF (0-5/HPF)
[2021-10-13 13:10] LABS: Alanine Aminotransferase 23 IU/L (<35); Albumin 4.3 g/dL (3.5-5.0); Albumin Globulin Ratio 1.5 (1.0-2.8); Alkaline Phosphatase 51 U/L (38-126); Aspartate Aminotransferase 23 IU/L (14-36); BUN Creatinine Ratio 21.7 (6-22); Bilirubin Total 0.5 mg/dL (0.2-1.3); Blood Urea Nitrogen 15 mg/dL (7-17); Calcium 9.5 mg/dL (8.4-10.2); Carbon Dioxide 29 mmol/L (22-32); Chloride 106 mmol/L (98-107); Estimated Glomerular Filt Rate > 60.0 mL/min (>60); Globulin 2.8 g/dL (1.7-4.1); Glucose 88 mg/dL (70-100); HEMOLYSIS < 15 (0-50); Potassium 3.8 mmol/L (3.4-5.1); Sodium 141 mmol/L (137-145); Total Protein 7.1 g/dL (6.3-8.2)
[2021-10-13] MEDS: PROMETHAZINE 25 MG TABLET 12.5 MG PO (13:57)
[2021-10-13] MEDS: KETOROLAC 30 MG/ML VIAL 15 MG IV (13:59)
== END 2021-10-13 15:01 | disposition home or self-care (01) ==
PROVIDERS: Emergency Medicine; Emergency Provider Nurse Practitioner Critical Care Medicine
DX: R11.2 Nausea with vomiting, unspecified (principal); T50.Z95A Adverse effect of other vaccines and biological substances, initial encounter; F19.239 Other psychoactive substance dependence with withdrawal, unspecified; Z20.822 Contact with and (suspected) exposure to COVID-19
CPT/HCPCS: 36415; 80053; 81001; 81003; 81025; 85025; 87635; 96361; 96374; 96375; 99284; C9803; J1885; J2405

== ENCOUNTER 2021-12-19 00:39 | Emergency (ER) | payer OTHER, MEDICAID, SELFPAY ==
[2021-12-19 00:47] VITALS: BP 152/65; PULSE 99; RESP 18; TEMP 36.6; O2SAT 99; BMI 29.8
--- NOTE | 2021-12-19 01:04 | DI.CT.S_ITS ---
PROCEDURE: CT KIDNEY URETER BLADDER (KUB) INDICATIONS: right groin/flank pain TECHNIQUE: Axial sections were acquired from the lung bases to the pubic symphysis. Coronal and sagittal reformats were performed. For radiation dose reduction, the following was used: automated exposure control, adjustment of mA and/or kV according to patient size. COMPARISON: [facility], CT, CT ABDOMEN PELVIS W CON, 04/15/2021, 11:43. [facility], CT, CT ABDOMEN PELVIS W CON, 02/20/2021, 12:50. [facility], CT, CT ABDOMEN PELVIS W CON, 02/09/2021, 15:28. [facility], CT, CT KIDNEY URETER BLADDER (KUB), 08/17/2020, 5:17. FINDINGS: Image quality: Excellent. Lung bases: Right middle lobe and lower lobe atelectasis. Small hiatal hernia. Heart: No significant findings. URINARY: Right Kidney: Mild stones or hydronephrosis. Right Ureter: There is a 2 mm stone in the proximal right ureter. Left Kidney: No stones or hydronephrosis. Left Ureter: No hydroureter. Bladder: Normal wall thickness. No stones. ABDOMEN: Liver: Unremarkable. Gallbladder: Possible small gallstones or gallbladder sludge. Biliary ducts: Unremarkable. Pancreas: Unremarkable. Spleen: Unremarkable. Adrenal Glands: Unremarkable. Stomach and Bowel: Stomach, small bowel loops, and colon are unremarkable. Normal appendix. Peritoneum: No abnormal intraperitoneal fluid. No free air. Ventral Wall: No hernia. Abdominal Nodes: No enlarged retroperitoneal or mesenteric lymph nodes. Vessels: Aorta and inferior vena cava are normal in size. PELVIS: Pelvic Organs: Uterus is normal. There is a 2.5 cm cyst in the left ovary, likely a dominant ovarian follicle. Right ovary is unremarkable. No pathological free fluid in pelvis. Pelvic Nodes: Unremarkable. Miscellaneous: No inguinal hernias are seen. Bones: Unremarkable. IMPRESSION: 1. There is a 2 mm obstructive stone in the proximal right ureter, causing mild right hydronephrosis. Dictated by: Ramses Sanchez M.D. on 12/19/2021 at 1:41 Approved by: Ramses Sanchez M.D. on 12/19/2021 at 1:49
--- NOTE | 2021-12-19 01:10 | ED_ITS ---
HPI - Abdominal Pain General Chief Complaint: Abdominal Pain Stated Complaint: KIDNEY STONE Time Seen by Provider: 12/19/21 01:03 Source: patient Mode of arrival: Ambulatory Limitations: no limitations History of Present Illness HPI narrative: This is a 31-year-old female comes in with complaint of acute onset of right flank and abdominal pain. Patient states she was sleeping when it woke her up from sleep. She has had nausea and vomiting. She has not any fever she is aware of. She states she has had a little frequency but no dysuria urgency. She has not appreciated hematuria. No vaginal bleeding or discharge. No diarrhea constipation. Patient states that she has had 1 prior kidney stone in the past and this feels similar. She takes medication for sleep and mood disorder. She denies prior surgeries. She is allergic to doxycycline, go often seen and trazodone. She does smoke occasional alcohol, positive for THC but no illicit. Related Data Home Medications Medication Instructions Recorded Confirmed Digestive Gummy Probiotic 2 ea PO BEDTIME 04/24/21 08/08/21 colestipol 1 gram tablet 1 g PO BID tab 04/24/21 08/08/21 diphenhydramine 25 2 tab PO BEDTIME PRN tab 04/24/21 08/08/21 mg-acetaminophen 500 mg tablet (Tylenol PM Extra Strength) melatonin 5 mg tablet 10 mg PO BEDTIME PRN 04/24/21 08/08/21 pantoprazole 40 mg tablet,delayed 40 mg PO DAILY tab 04/24/21 08/08/21 release Previous Rx's Medication Instructions Recorded lidocaine 5 % topical patch 1 patch TOPICAL DAILY 10 Days #15 05/29/21 (Lidoderm) ea naproxen 500 mg tablet (Naprosyn) 500 mg PO BID PRN #60 tab 05/29/21 gabapentin 800 mg tablet 800 mg PO BID #180 tab 08/08/21 mirtazapine 15 mg tablet 15 mg PO BEDTIME #90 tab 08/08/21 Ambien CR 6.25 mg tablet,extended 6.25 mg PO BEDTIME PRN #30 tab NS 08/19/21 release (zolpidem) promethazine 12.5 mg tablet 12.5 mg PO BID PRN #10 tab 10/13/21 oxycodone 5 mg tablet 5 mg PO QID PRN #14 tab 12/19/21 tamsulosin 0.4 mg capsule (Flomax) 0.4 mg PO DAILY #7 cap 12/19/21 Allergies Allergy/AdvReac Type Severity Reaction Status Date / Time doxycycline AdvReac n/v Verified 09/14/21 12:20 guaifenesin [From Mucinex] AdvReac n/v Verified 09/14/21 12:20 trazodone AdvReac mental Verified 09/14/21 12:20 status changes Review of Systems Review of Systems ROS Unobtainable: All systems reviewed & are unremarkable except as noted in HPI and below Patient History Medical History Bacterial vaginosis Calcific tendinitis of right shoulder Dyspareunia Dysplasia of cervix, low grade (BOBBI 1) Ovarian cyst Surgical History H/O laparoscopy (~09/22/19) History of colposcopy (04/07/18) S/P wisdom tooth extraction Social History Smoking Status: Current every day smoker alcohol intake: current Smoking Status: Current every day smoker tobacco type: cigarettes alcohol intake frequency: other Substance Use Type: marijuana Exam Narrative Exam Narrative: GENERAL: Alert and oriented x three, female moderate distress. HEENT: Head normocephalic, atraumatic, EOMI, pupils reactive, face symmetric, moist mucous membranes NECK: Supple, full range of motion CARDIOVASCULAR: Regular rate and rhythm without murmurs, rubs or gallops. RESPIRATORY: Breath sounds equal bilaterally, no wheezes rales or rhonchi. ABDOMEN: Soft, nontender. Normoactive bowel sounds all 4 quadrants. No guarding or rebound, rigidity, no mass : No CVA tenderness EXTREMITIES: Normal range of motion, no clubbing or edema. Neurovascularly intact NEUROLOGICAL: Cranial nerves II through XII grossly intact. Moving all extremities SKIN: Warm, dry, no petechiae, no rashes or lesions. Initial Vital Signs Initial Vital Signs: Vital Signs Temperature 98 F 12/19/21 00:47 Pulse Rate 99 H 12/19/21 00:47 Respiratory Rate 18 12/19/21 00:47 Blood Pressure 152/65 H 12/19/21 00:47 Pulse Oximetry 99 12/19/21 00:47 Course Orders Ordered: ED Orders 12/19/21 00:56 EKG-12 Lead Stat 12/19/21 01:00 Urine Culture Stat 12/19/21 01:04 CT kidney ureter bladder (KUB) Stat 12/19/21 01:10 Complete Blood Count AUTO DIFF Stat Comprehensive Metabolic Panel Stat Lipase Stat 12/19/21 02:00 Urine Microscopic Stat Discontinued Medications Hydrocodone Bitart/Acetaminophen (Hydrocodone/Acet 5/325 Prepack) 1 bottle MISC SEEINSTR ONE Stop: 12/19/21 02:02 Last Admin: 12/19/21 02:44 Dose: 1 bottle Documented by: Ketorolac Tromethamine (Ketorolac 30 Mg/Ml Vial) 30 mg IV NOW ONE Stop: 12/19/21 01:05 Last Admin: 12/19/21 01:20 Dose: 30 mg Documented by: LAURA Morphine Sulfate (Morphine 4 Mg/Ml Inj) 4 mg IV NOW ONE Stop: 12/19/21 01:36 Last Admin: 12/19/21 01:39 Dose: 4 mg Documented by: LAURA Tamsulosin HCl (Tamsulosin 0.4 Mg Capsule) 0.4 mg PO NOW ONE Stop: 12/19/21 01:57 Last Admin: 12/19/21 02:44 Dose: 0.4 mg Documented by: Reevaluation(s) Reevaluation #1: Patient minimal improvement with Toradol. Had significant improvement with morphine. Renal function is appropriate. [place] with a 2 mm stone noted on the right. Patient's urine does not show any infection does show hematuria. Plan for Flomax, medications for pain control and referral to Urology. Patient feels comfortable with this plan. Time: 02:06 Vital Signs Vital signs: Vital Signs - 8 hr 12/19/21 00:47 12/19/21 02:22 Temperature 98 F Pulse Rate 99 H 80 Respiratory Rate 18 18 Blood Pressure 152/65 H 141/62 H Pulse Oximetry 99 99 MDM - Abdominal Pain Lab Data Result diagrams: 12/19/21 01:10 12/19/21 01:10 Labs: Lab Results 12/19/21 12/19/21 12/19/21 Range/Units 01:00 01:10 01:10 WBC 13.7 H (4.5-11.0) X10^3/uL RBC 4.71 (4.0-5.2) X10^6/uL Hgb 15.0 (12.0-16.0) g/dL Hct 43.6 (36-46) % MCV 92.8 (80-100) fL MCH 31.8 (26-34) PG MCHC 34.3 (30-36) % RDW 13.1 (11.6-14.8) % Plt Count 191 (150-400) X10^3/uL Neut % (Auto) Not Reportable Lymph % (Auto) Not Reportable [place] % (Auto) Not Reportable Eos % (Auto) Not Reportable Baso % (Auto) Not Reportable Lymph # (Auto) Not Reportable [place] # (Auto) Not Reportable Baso # (Auto) Not Reportable Sodium 137 (137-145) mmol/L Potassium 4.0 (3.4-5.1) mmol/L Chloride 105 (98-107) mmol/L Carbon Dioxide 28 (22-32) mmol/L BUN 11 (7-17) mg/dL Creatinine 0.59 (0.52-1.04) mg/dL Estimated GFR > 60.0 (>60) mL/min BUN/Creatinine Ratio 18.6 (6-22) Glucose 96 (70-100) mg/dL Calcium 8.8 (8.4-10.2) mg/dL Total Bilirubin 0.7 (0.2-1.3) mg/dL AST 31 (14-36) IU/L ALT 31 (<35) IU/L Alkaline Phosphatase 71 (38-126) U/L Total Protein 6.9 (6.3-8.2) g/dL Albumin 4.1 (3.5-5.0) g/dL Globulin 2.8 (1.7-4.1) g/dL Albumin/Globulin Ratio 1.5 (1.0-2.8) Lipase 66 (23-300) U/L Urine RBC 30-100/hpf H (0-5/HPF) Urine WBC None seen (0-5/HPF) Calcium Oxalate Crystal Few H Urine Bacteria Few (2-10) H (None) Ur Culture Indicated? Specimen cultured Point of care testing: Point of Care Testing Test Results Negative Urine Dip Bedside Urine Glucose Negative Bedside Urine Bilirubin - Negative Bedside Urine Ketone - Negative Urine Specific [place] 1.030 Bedside Urine Occult Blood +++ Bedside Urine pH 5.5 Bedside Urine Protein +/- 15 Bedside Urine Urobilinogen - Negative Bedside Urine Nitrite - Negative Bedside Urine Leukocytes - Negative Esterase MDM Narrative Medical decision making narrative: This is a 31-year-old female with sudden onset of right flank and abdominal pain consistent with kidney stone. She has hematuria. Labs do not show major abnormalities or signs of renal dysfunction. CT does show stone with some hydro. Patient had pain improved here in the department with Toradol followed by morphine. Flomax, p.o. medications for pain and follow-up with urology. Patient has had 1 prior which she has passed without any intervention. Discharge Plan Departure Patient Disposition: Home Clinical Impression: Kidney stone on right side Instructions: DI for Kidney Stones Activity Restrictions/Additional Instructions: Follow-up with urology if you are not having improvement of symptoms this week. Take Flomax daily until gone. You may take Tylenol up to a 1000 mg every 8 hours and/or ibuprofen up to 800 mg every 8 hours. If in adequate you can add 1-2 tablets of oxycodone every 6 hours as needed. Prescription sent to [facility] in [place] Please return for fevers, worsening or new abdominal or flank pain, persistent vomiting, passing out, inability urinate or other new or concerning symptoms. Prescriptions: New tamsulosin [Flomax] 0.4 mg capsule 0.4 mg PO DAILY Qty: 7 0RF oxycodone 5 mg tablet 5 mg PO QID PRN (Reason: pain) Qty: 14 0RF No Action lidocaine [Lidoderm] 5 % adhesive patch,medicated 1 patch topical DAILY 10 Days Qty: 15 1RF Rx Instructions: leave on most painful area for up to 12 hrs naproxen [Naprosyn] 500 mg tablet 500 mg PO BID PRN (Reason: pain) Qty: 60 1RF zolpidem [Ambien CR] 6.25 mg tablet,ext release multiphase 6.25 mg PO BEDTIME PRN (Reason: insomnia) Qty: 30 2RF pantoprazole 40 mg tablet,delayed release (DR/EC) 40 mg PO DAILY 0RF colestipol 1 gram tablet 1 g PO BID 0RF diphenhydramine-acetaminophen [Tylenol PM Extra Strength] 25-500 mg tablet 2 tab PO BEDTIME PRN0RF melatonin 5 mg tablet 10 mg PO BEDTIME PRN0RF Rx Instructions: Gummy Form per patient. Digestive Gummy Probiotic 2 ea PO BEDTIME 0RF mirtazapine 15 mg tablet 15 mg PO BEDTIME Qty: 90 1RF gabapentin 800 mg tablet 800 mg PO BID Qty: 180 1RF promethazine 12.5 mg tablet 12.5 mg PO BID PRN (Reason: nausea and vomiting) Qty: 10 0RF Rx Instructions: Please take if your Zofran is not helpful Referrals: Miscellaneous,DoctorMD [Primary Care Provider] - Mike Wong MD [Physician] - Stand Alone Forms: Work Release Note
[2021-12-19] MEDS: KETOROLAC 30 MG/ML VIAL IV (01:20)
[2021-12-19 01:31] LABS: Hematocrit 43.6 % (36-46); Mean Corpuscular HGB Conc 34.3 % (30-36); Mean Corpuscular Hemoglobin 31.8 PG (26-34); Mean Corpuscular Volume 92.8 fL (80-100); Platelet Count 191 X10^3/uL (150-400); Red Blood Cell Count 4.71 X10^6/uL (4.0-5.2); Red Cell Distribution Width 13.1 % (11.6-14.8); White Blood Cell Count 13.7 X10^3/uL (4.5-11.0)
[2021-12-19 01:32] LABS: Add Manual Diff / Slide Review YES
[2021-12-19 01:35] LABS: Alanine Aminotransferase 31 IU/L (<35); Albumin 4.1 g/dL (3.5-5.0); Albumin Globulin Ratio 1.5 (1.0-2.8); Alkaline Phosphatase 71 U/L (38-126); Aspartate Aminotransferase 31 IU/L (14-36); BUN Creatinine Ratio 18.6 (6-22); Bilirubin Total 0.7 mg/dL (0.2-1.3); Blood Urea Nitrogen 11 mg/dL (7-17); Calcium 8.8 mg/dL (8.4-10.2); Carbon Dioxide 28 mmol/L (22-32); Chloride 105 mmol/L (98-107); Estimated Glomerular Filt Rate > 60.0 mL/min (>60); Globulin 2.8 g/dL (1.7-4.1); Glucose 96 mg/dL (70-100); HEMOLYSIS 25 (0-50); Lipase 66 U/L (23-300); Sodium 137 mmol/L (137-145); Total Protein 6.9 g/dL (6.3-8.2)
[2021-12-19] MEDS: MORPHINE 4 MG/ML INJ IV (01:39)
[2021-12-19 02:22] VITALS: BP 141/62; PULSE 80; RESP 18; O2SAT 99
[2021-12-19 02:32] LABS: Bacteria Urine Few (2-10); Calcium Oxalate Crystals Urine Few; Culture Indicated Urine Specimen Cultured; RBC Urine 30-100/HPF (0-5/HPF); WBC Urine None Seen (0-5/HPF)
[2021-12-19] MEDS: TAMSULOSIN 0.4 MG CAPSULE PO (02:44)
[2021-12-19] MEDS: HYDROCODONE/ACET 5/325 PREPACK 1 BOTTLE MISC (02:44)
[2021-12-19 06:45] LABS: Neutrophils Absolute Manual 9727 /uL (3000-5900); Total Cells Counted 100
[2021-12-19 06:46] LABS: RBC Morphology Normal Morphology
== END 2021-12-19 02:45 | disposition home or self-care (01) ==
PROVIDERS: Emergency Provider Emergency Medicine
DX: N13.2 Hydronephrosis with renal and ureteral calculous obstruction (principal); F17.200 Nicotine dependence, unspecified, uncomplicated
CPT/HCPCS: 36415; 74176; 80053; 81003; 81015; 81025; 83690; 85007; 85025; 87086; 96374; 96375; 99284; J1885; J2270

== ENCOUNTER 2021-12-23 15:47 | Emergency (ER) | payer OTHER, MEDICAID, SELFPAY ==
[2021-12-23 15:52] VITALS: BP 217/99; PULSE 91; RESP 24; TEMP 36.7; O2SAT 97
[2021-12-23 16:16] LABS: Add Manual Diff / Slide Review NO; Basophils Absolute Auto 100 /uL (0-100); Basophils Percent Auto 0.6 % (0-2); Eosinophils Absolute Auto 200 /uL (0-450); Eosinophils Percent Auto 1.7 % (2-4); Hematocrit 41.3 % (36-46); Lymphocytes Absolute Auto 4100 /uL (1100-4500); Lymphocytes Percent Auto 27.5 % (25-40); Mean Corpuscular HGB Conc 33.9 % (30-36); Mean Corpuscular Hemoglobin 31.6 PG (26-34); Mean Corpuscular Volume 93.1 fL (80-100); Monocytes Absolute Auto 900 /uL (0-900); Monocytes Percent Auto 6.3 % (3-14); Neutrophils Absolute Auto 9600 /uL (1500-7000); Neutrophils Percent Auto 63.9 % (50-75); Platelet Count 199 X10^3/uL (150-400); Red Blood Cell Count 4.44 X10^6/uL (4.0-5.2); Red Cell Distribution Width 13.2 % (11.6-14.8)
[2021-12-23 16:24] LABS: Alanine Aminotransferase 31 IU/L (<35); Albumin 4.3 g/dL (3.5-5.0); Albumin Globulin Ratio 1.3 (1.0-2.8); Alkaline Phosphatase 73 U/L (38-126); Aspartate Aminotransferase 34 IU/L (14-36); BUN Creatinine Ratio 11.6 (6-22); Bilirubin Total 0.4 mg/dL (0.2-1.3); Blood Urea Nitrogen 15 mg/dL (7-17); Calcium 9.4 mg/dL (8.4-10.2); Carbon Dioxide 30 mmol/L (22-32); Chloride 105 mmol/L (98-107); Estimated Glomerular Filt Rate 48.9 mL/min (>60); Globulin 3.2 g/dL (1.7-4.1); Glucose 95 mg/dL (70-100); HEMOLYSIS 19 (0-50); Lipase 59 U/L (23-300); Potassium 4.3 mmol/L (3.4-5.1); Sodium 138 mmol/L (137-145); Total Protein 7.5 g/dL (6.3-8.2)
[2021-12-23] MEDS: MORPHINE 4 MG/ML INJ IV (16:36)
[2021-12-23] MEDS: SODIUM CHLORIDE 0.9% 1,000 ML 1000 ML IV (16:36)
[2021-12-23 16:43] VITALS: BP 163/91; PULSE 90; O2SAT 96
--- NOTE | 2021-12-23 16:54 | ED.GENADULT ---
HPI - General Adult General Chief complaint: Abdominal Pain Stated complaint: still has a kidney stone Time Seen by Provider: 12/23/21 16:50 Source: patient Mode of arrival: Ambulatory History of Present Illness HPI narrative: 31-year-old female who is seen here in the emergency department a couple days ago and diagnosed with a right-sided proximal ureteral stone. Was sent home on Flomax and pain medication. States that since that time her pain has not improved and actually worsened somewhat. She is having quite a bit of dysuria and frequency and urgency. No fevers. The pain is not changed. She states she took her last dose of pain medication this morning. She has been taking the rest of her medications as directed. She returns for continued discomfort. Related Data Home Medications Medication Instructions Recorded Confirmed Digestive Gummy Probiotic 2 ea PO BEDTIME 04/24/21 08/08/21 colestipol 1 gram tablet 1 g PO BID tab 04/24/21 08/08/21 diphenhydramine 25 2 tab PO BEDTIME PRN tab 04/24/21 08/08/21 mg-acetaminophen 500 mg tablet (Tylenol PM Extra Strength) melatonin 5 mg tablet 10 mg PO BEDTIME PRN 04/24/21 08/08/21 pantoprazole 40 mg tablet,delayed 40 mg PO DAILY tab 04/24/21 08/08/21 release Previous Rx's Medication Instructions Recorded lidocaine 5 % topical patch 1 patch TOPICAL DAILY 10 Days #15 05/29/21 (Lidoderm) ea naproxen 500 mg tablet (Naprosyn) 500 mg PO BID PRN #60 tab 05/29/21 gabapentin 800 mg tablet 800 mg PO BID #180 tab 08/08/21 mirtazapine 15 mg tablet 15 mg PO BEDTIME #90 tab 08/08/21 Ambien CR 6.25 mg tablet,extended 6.25 mg PO BEDTIME PRN #30 tab NS 08/19/21 release (zolpidem) promethazine 12.5 mg tablet 12.5 mg PO BID PRN #10 tab 10/13/21 oxycodone 5 mg tablet 5 mg PO QID PRN #14 tab 12/19/21 tamsulosin 0.4 mg capsule (Flomax) 0.4 mg PO DAILY #7 cap 12/19/21 oxycodone-acetaminophen 5 mg-325 1 tab PO Q8H PRN #7 tab 12/23/21 mg tablet sulfamethoxazole 800 1 tab PO BID 3 Days #6 tab 12/23/21 mg-trimethoprim 160 mg tablet (Bactrim DS) Allergies Allergy/AdvReac Type Severity Reaction Status Date / Time doxycycline AdvReac n/v Verified 09/14/21 12:20 guaifenesin [From Mucinex] AdvReac n/v Verified 09/14/21 12:20 trazodone AdvReac mental Verified 09/14/21 12:20 status changes Review of Systems Constitutional Constitutional: Denies fever(s) Gastrointestinal Gastrointestinal: Reports as per HPI and Reports system reviewed and no additional complaints, except as documented Genitourinary Genitourinary: Reports system reviewed and no additional complaints, except as documented and Reports as per HPI Integumentary/Breasts Skin/Breast: Reports system reviewed and no additional complaints, except as documented Hematologic/Lymphatic On Anticoagulants: No Patient History Medical History Bacterial vaginosis Calcific tendinitis of right shoulder Dyspareunia Dysplasia of cervix, low grade (BOBBI 1) Ovarian cyst Surgical History H/O laparoscopy (~09/22/19) History of colposcopy (04/07/18) S/P wisdom tooth extraction Social History Smoking Status: Current every day smoker alcohol intake: current Smoking Status: Current every day smoker tobacco type: cigarettes alcohol intake frequency: other Substance Use Type: marijuana Exam Initial Vital Signs Initial Vital Signs: Vital Signs Temperature 98.1 F 12/23/21 15:52 Pulse Rate 91 H 12/23/21 15:52 Respiratory Rate 24 12/23/21 15:52 Blood Pressure 217/99 H 12/23/21 15:52 Pulse Oximetry 97 12/23/21 15:52 HENMT Head: normal to inspection and normocephalic Resp Effort & Inspection: normal respiratory effort Cardio Rate: regular rate Back/Spine/Pelvis Back: CVA tenderness right Skin General: no rashes or lesions noted Neuro General: patient alert, patient awake, patient oriented x3 and moves all extremities Extrem General: normal to inspection and capillary refill normal Psych Appearance: grossly normal and well kempt Course Orders Ordered: ED Orders 12/23/21 16:00 Complete Blood Count AUTO DIFF Stat Comprehensive Metabolic Panel Stat Lipase Stat 12/23/21 17:05 Ictotest Urine Stat Urine Culture Stat Urine Microscopic Stat 12/23/21 17:58 Blood Culture Stat Discontinued Medications Hydromorphone HCl (Hydromorphone 1 Mg Inj) 1 mg IV NOW ONE Stop: 12/23/21 16:55 Last Admin: 12/23/21 17:33 Dose: 1 mg Documented by: EVERETT Sodium Chloride (Normal Saline 0.9%) 1,000 mls @ 1,000 mls/hr IV BOLUS ONE Stop: 12/23/21 17:19 Last Infusion: 12/23/21 18:31 Dose: 0 mls/hr Documented by: Admin: 12/23/21 16:36 Dose: 1,000 mls/hr Documented by: EVERETT Ceftriaxone Sodium 1,000 mg/ (Sodium Chloride) 100 mls @ 200 mls/hr IV NOW ONE Stop: 12/23/21 17:15 Last Infusion: 12/23/21 18:31 Dose: 0 mls/hr Documented by: Admin: 12/23/21 17:33 Dose: 200 mls/hr Documented by: EVERETT Lidocaine HCl 5.9 ml/ Sodium (Chloride) 55.9 mls @ 335.4 mls/hr IV NOW ONE Stop: 12/23/21 18:31 Last Infusion: 12/23/21 19:26 Dose: 0 mls/hr Documented by: Admin: 12/23/21 18:51 Dose: 335.4 mls/hr Documented by: GINA Morphine Sulfate (Morphine 4 Mg/Ml Inj) 4 mg IV NOW ONE Stop: 12/23/21 16:21 Last Admin: 12/23/21 16:36 Dose: 4 mg Documented by: EVERETT Oxycodone/Acetaminophen (Oxycodone/Apap 5/325 Prepack) 1 bottle MISC SEEINSTR ONE Stop: 12/23/21 19:40 Last Admin: 12/23/21 19:50 Dose: 1 bottle Documented by: GINA Vital Signs Vital signs: Vital Signs - 8 hr 12/23/21 15:52 12/23/21 16:43 12/23/21 19:45 Temperature 98.1 F 97.8 F Pulse Rate 91 H 90 74 Respiratory Rate 24 16 Blood Pressure 217/99 H 163/91 H 157/68 H Pulse Oximetry 97 96 97 Medical Decision Making Medical Records Medical records reviewed: Yes I reviewed the patient's medical records. Lab Data Lab results reviewed: Yes I reviewed the patient's lab results. Result diagrams: 12/23/21 16:00 12/23/21 16:00 Labs: Lab Results 12/23/21 12/23/21 12/23/21 Range/Units 16:00 16:00 17:05 WBC 15.0 H (4.5-11.0) X10^3/uL RBC 4.44 (4.0-5.2) X10^6/uL Hgb 14.0 (12.0-16.0) g/dL Hct 41.3 (36-46) % MCV 93.1 (80-100) fL MCH 31.6 (26-34) PG MCHC 33.9 (30-36) % RDW 13.2 (11.6-14.8) % Plt Count 199 (150-400) X10^3/uL Neut % (Auto) 63.9 (50-75) % Lymph % (Auto) 27.5 (25-40) % Elliott % (Auto) 6.3 (3-14) % Eos % (Auto) 1.7 L (2-4) % Baso % (Auto) 0.6 (0-2) % Neut # (Auto) 9600 H (5136-4786) /uL Lymph # (Auto) 4100 (2731-3225) /uL Elliott # (Auto) 900 (0-900) /uL Eos # (Auto) 200 (0-450) /uL Baso # (Auto) 100 (0-100) /uL Sodium 138 (137-145) mmol/L Potassium 4.3 (3.4-5.1) mmol/L Chloride 105 (98-107) mmol/L Carbon Dioxide 30 (22-32) mmol/L BUN 15 (7-17) mg/dL Creatinine 1.29 H (0.52-1.04) mg/dL Estimated GFR 48.9 L (>60) mL/min BUN/Creatinine Ratio 11.6 (6-22) Glucose 95 (70-100) mg/dL Calcium 9.4 (8.4-10.2) mg/dL Total Bilirubin 0.4 (0.2-1.3) mg/dL AST 34 (14-36) IU/L ALT 31 (<35) IU/L Alkaline Phosphatase 73 (38-126) U/L Total Protein 7.5 (6.3-8.2) g/dL Albumin 4.3 (3.5-5.0) g/dL Globulin 3.2 (1.7-4.1) g/dL Albumin/Globulin Ratio 1.3 (1.0-2.8) Lipase 59 (23-300) U/L Ur Bilirubin Confirm (Negative) Urine RBC 30-100/hpf H (0-5/HPF) Urine WBC 0-1/hpf (0-5/HPF) Ur Squamous Epith Cells 10-30 /hpf H D (0-5/HPF) Ur Transition Epith Cell 0-1/hpf (0-5/HPF) Urine Bacteria Few (2-10) H (None) Ur Culture Indicated? Cult not indicated Micro UA Comment Note 12/23/21 Range/Units 17:05 WBC (4.5-11.0) X10^3/uL RBC (4.0-5.2) X10^6/uL Hgb (12.0-16.0) g/dL Hct (36-46) % MCV (80-100) fL MCH (26-34) PG MCHC (30-36) % RDW (11.6-14.8) % Plt Count (150-400) X10^3/uL Neut % (Auto) (50-75) % Lymph % (Auto) (25-40) % Elliott % (Auto) (3-14) % Eos % (Auto) (2-4) % Baso % (Auto) (0-2) % Neut # (Auto) (9145-4799) /uL Lymph # (Auto) (4100-0421) /uL Elliott # (Auto) (0-900) /uL Eos # (Auto) (0-450) /uL Baso # (Auto) (0-100) /uL Sodium (137-145) mmol/L Potassium (3.4-5.1) mmol/L Chloride (98-107) mmol/L Carbon Dioxide (22-32) mmol/L BUN (7-17) mg/dL Creatinine (0.52-1.04) mg/dL Estimated GFR (>60) mL/min BUN/Creatinine Ratio (6-22) Glucose (70-100) mg/dL Calcium (8.4-10.2) mg/dL Total Bilirubin (0.2-1.3) mg/dL AST (14-36) IU/L ALT (<35) IU/L Alkaline Phosphatase (38-126) U/L Total Protein (6.3-8.2) g/dL Albumin (3.5-5.0) g/dL Globulin (1.7-4.1) g/dL Albumin/Globulin Ratio (1.0-2.8) Lipase (23-300) U/L Ur Bilirubin Confirm Negative (Negative) Urine RBC (0-5/HPF) Urine WBC (0-5/HPF) Ur Squamous Epith Cells (0-5/HPF) Ur Transition Epith Cell (0-5/HPF) Urine Bacteria (None) Ur Culture Indicated? Micro UA Comment Point of Care Testing Test Results Negative Urine Dip Bedside Urine Glucose Negative Bedside Urine Bilirubin + 1 Bedside Urine Ketone - Negative Urine Specific [place] 1.015 Bedside Urine Occult Blood +++ Bedside Urine pH 7 Bedside Urine Protein - Negative Bedside Urine Urobilinogen +/- 1mg Bedside Urine Nitrite + Positive Bedside Urine Leukocytes + 70 Esterase Point of care testing: Point of Care Testing Test Results Negative Urine Dip Bedside Urine Glucose Negative Bedside Urine Bilirubin + 1 Bedside Urine Ketone - Negative Urine Specific [place] 1.015 Bedside Urine Occult Blood +++ Bedside Urine pH 7 Bedside Urine Protein - Negative Bedside Urine Urobilinogen +/- 1mg Bedside Urine Nitrite + Positive Bedside Urine Leukocytes + 70 Esterase [facility] Narrative Medical decision making narrative: Patient continues to have right-sided flank pain with a known 2 mm proximal ureteral stone. She has a leukocytosis of 15 and a creatinine that is doubled compared to a couple days ago. Otherwise patient is nontoxic appearing. She is afebrile. After multiple doses of pain medication we were able to somewhat control her discomfort. She does have a nitrite positive urine. Cultures were obtained. Was given a dose of Rocephin here in the emergency department. I did discuss the case with Dr. pfeiffer with Urology who agreed with the antibiotics. He stated that the patient's pain could be controlled that she could be discharged home in his office would contact her tomorrow. If her pain was not controlled than she needed to be admitted to the hospital for evaluation. There was initial plan to admit her to the hospital given the pain control issue. When I discussed with her about being admitted she states she could not be admitted to the hospital because she has a cat and a puppy at home that she needs to take care of. We did discuss my concerns about the urinary tract infection and the change in her labs. We did discuss that things could potentially worsen overnight. Also had concerns about controlling her discomfort. She states the oxycodone that she was discharged home on was controlling her symptoms somewhat he made and tolerable when she ran out of this medication this morning. She feels that if she had this medication that she would be able to control her symptoms. Plan to be is to discharge home which are her wishes. She was given the contact information with Urology. Urology office will contact her tomorrow. She was instructed that she needed to be NPO after midnight except for small sips of fluid when taking her medications. I did inform her to anticipate needing a procedure done tomorrow to help her symptoms. She was given strict return precautions. She expressed understanding and agreed Discharge Plan Departure Patient Disposition: Home Clinical Impression: Right ureteral stone, Urinary tract infection Instructions: DI for Urinary Tract Infection (UTI) Activity Restrictions/Additional Instructions: Despite our recommendation to be admitted today you would like to be discharged. You should be receiving a call from the urology office here at the hospital tomorrow morning. If you have not heard from them by mid morning please contact them at the number that you have been provided. I Would anticipate a potential procedure tomorrow given the findings of your urinalysis and the known right-sided kidney stone. Please do not eat or drink anything after midnight tonight. You can take your medications with a small sip of water. Take the pain medication as needed. A prescription for antibiotics was transmitted to [facility]. Please start taking these tomorrow. Return to the emergency department for any new or worsening symptoms. Prescriptions: New sulfamethoxazole-trimethoprim [Bactrim DS] 800-160 mg tablet 1 tab PO BID 3 Days Qty: 6 0RF oxycodone-acetaminophen 5-325 mg tablet 1 tab PO Q8H PRN (Reason: pain) Qty: 7 0RF No Action lidocaine [Lidoderm] 5 % adhesive patch,medicated 1 patch topical DAILY 10 Days Qty: 15 1RF Rx Instructions: leave on most painful area for up to 12 hrs naproxen [Naprosyn] 500 mg tablet 500 mg PO BID PRN (Reason: pain) Qty: 60 1RF zolpidem [Ambien CR] 6.25 mg tablet,ext release multiphase 6.25 mg PO BEDTIME PRN (Reason: insomnia) Qty: 30 2RF pantoprazole 40 mg tablet,delayed release (DR/EC) 40 mg PO DAILY 0RF colestipol 1 gram tablet 1 g PO BID 0RF diphenhydramine-acetaminophen [Tylenol PM Extra Strength] 25-500 mg tablet 2 tab PO BEDTIME PRN0RF melatonin 5 mg tablet 10 mg PO BEDTIME PRN0RF Rx Instructions: Gummy Form per patient. Digestive Gummy Probiotic 2 ea PO BEDTIME 0RF mirtazapine 15 mg tablet 15 mg PO BEDTIME Qty: 90 1RF gabapentin 800 mg tablet 800 mg PO BID Qty: 180 1RF tamsulosin [Flomax] 0.4 mg capsule 0.4 mg PO DAILY Qty: 7 0RF oxycodone 5 mg tablet 5 mg PO QID PRN (Reason: pain) Qty: 14 0RF promethazine 12.5 mg tablet 12.5 mg PO BID PRN (Reason: nausea and vomiting) Qty: 10 0RF Rx Instructions: Please take if your Zofran is not helpful Referrals: Amanda Pfeiffer MD [Physician] - Miscellaneous,MD Yohannes [Primary Care Provider] - Stand Alone Forms: Work Release Note
[2021-12-23 17:19] LABS: Ictotest Urine Negative (Negative)
[2021-12-23 17:29] LABS: Bacteria Urine Few (2-10); Culture Indicated Urine Cult Not Indicated; RBC Urine 30-100/HPF (0-5/HPF); Squamous Epithelial Cell Urine 10-30 /HPF (0-5/HPF); Transitional Epi Cells Urine 0-1/HPF (0-5/HPF); Urine Comments NOTE; WBC Urine 0-1/HPF (0-5/HPF)
[2021-12-23] MEDS: HYDROMORPHONE 1 MG INJ IV (17:33)
[2021-12-23] MEDS: cefTRIAXone 1,000 MG in SODIUM CHLORIDE 0.9% 100 ML 200 ML IV (17:33)
[2021-12-23] MEDS: LIDOCAINE 2% 5.9 ML in SODIUM CHLORIDE 0.9% 50 ML 335.4 ML IV (18:51)
[2021-12-23 19:45] VITALS: BP 157/68; PULSE 74; RESP 16; TEMP 36.6; O2SAT 97
[2021-12-23] MEDS: OXYCODONE/APAP 5/325 PREPACK 1 BOTTLE MISC (19:50)
== END 2021-12-23 19:53 | disposition home or self-care (01) ==
PROVIDERS: Emergency Provider Emergency Medicine
DX: N20.1 Calculus of ureter (principal); N39.0 Urinary tract infection, site not specified; F17.210 Nicotine dependence, cigarettes, uncomplicated; Z88.1 Allergy status to other antibiotic agents
CPT/HCPCS: 36415; 80053; 81003; 81015; 81025; 83690; 85025; 87040; 87086; 96361; 96365; 96375; 99284; J0696; J1170; J2270

== ENCOUNTER 2022-02-17 14:17 | Outpatient (RCR) | payer OTHER, MEDICAID, SELFPAY ==
--- NOTE | 2022-02-17 17:16 | PT.OPPOC ---
Physical, Occupational & Speech Therapy At [facility] Current Diagnoses Muscle weakness (generalized) (02/17/22) Calcific tendinitis of right shoulder (02/17/22) Visit Care Team Role Provider Type Doctor MD [place] Primary Care Provider Non-Staff Specialty: Medical Address: Phone: Fax: Email: Other Providers Specialty: Address: Phone: Fax: Email: Keshawn Becerra PA-C Attending Provider Non-Staff Referring Provider Specialty: Medical Address: [facility], [address] [place] [address] , [place], [address] Email: Plan Of Care PT-OP-T Assessment and Plan Start: 12/23/21 14:15 Freq: Status: Active Protocol: Document 02/17/22 14:34 LRN (Rec: 02/17/22 15:24 LRN [id number]) Physical Therapy Assessment Rehab Potential Rehabilitation Potential Fair Evaluation Complexity Number of Personal Factors/Comorbidities 3 or More Number of Body Systems Impaired 4 or More Clinical Presentation at Evaluation Evolving Impairments Impairments Activity Tolerance,Pain, Posture,ROM,Soft Tissue Mobility,Strength Goals Four Impairment Decreased R shoulder strength Impairment Generally 2/5 Short Term Goal (STG) Normalize R scapular positioning. STG Duration 03/17/22 Residential Goal (LTG) Improve R shoulder strength to 4/5. LTG Duration 05/01/22 Three Impairment Decreased R shoulder AROM Impairment AROM in deg's: Flex 132 R, 170 L; Ext 60 R, 80 L; AB 90 R , 180 L; ER (0 deg's AB) 40 R, 65 L; reaching behind back - L3 R, T8 L. Short Term Goal (STG) Pt will be able to demonstrate knowledge of proper scapulohumeral rhythm coordination of R UE with AROM resulting in decrease pain with motion. STG Duration 03/17/22 Residential Goal (LTG) Improve painfree R shoulder AROM. LTG Duration 05/01/22 Two Impairment R shoulder pain Impairment Pain rated 4-9/10 Short Term Goal (STG) Pt will be educated in use of modalities for pain management STG Duration 03/30/22 Hand Leather Trimmer Goal (LTG) Decrease pain to level of 3-4 with R shoulder AROM in sub maximal range. LTG Duration 05/01/22 One Impairment HEP Impairment and pain management ( modalities & deep breathing). Pt will be progressed on a ROM, Codman's and RC strengthening program as tolerated Short Term Goal (STG) Pt will be educated in proper posturing and body mechanics. STG Duration 03/30/22 Residential Goal (LTG) Pt will be independent in a self care HEP. LTG Duration 05/01/22 Assessment Summary Assessment Pt present with soft tissue and mechanical dysfunction of the R shoulder. She has poor coordination of her rotator cuff muscles and poor GHJ mechanics associated to poor posturing. She did not tolerate assessment of her R shoulder strength, but presents with impingement indicating rotator cuff dysfunction. Possible tear could not be assessed due to her avoidance of pain. Her UE function is 80-99% impaired per UE Quickdash functional score. The pt has very limited insurance benefits for the year; therefore the pt agrees to focusing more on self care and a HEP over a longer period of time with intermittent visits. I suspect the 8 visits her insurance allows will make it difficult for the pt to improve enough to achieve return of function, since indicates she will not be able to afford out of pocket PT visits. She will benefit from skilled physical therapy for education onto a self care program and a ROM/ex program that will help her to progress independently once she is discharged from therapy. Use of modalities and manual therapy will be helpful in reducing pain after exercise. Physical Therapy Plan Frequency and Duration Frequency of Treatment 2x/Week Plan of Care Start Date 02/17/22 Plan of Care End Date 05/01/22 Therapeutic Interventions Therapeutic Interventions Aquatic Therapy,Home Exercise Program,Manual Therapy,Patient /Caregiver Education,Self-Care /Home Management,Soft Tissue Mobilization,Taping, Therapeutic Activities, Therapeutic Exercises Modalities Cold Pack/Ice Massage Next Visit Focus/Plan Next Note Type Treatment Note Next Visit Plan Self care education in proper posturing, body mechanics and pain management (modalities & deep breathing). Pt will be progressed on a ROM, Codman's and RC strengthening program as tolerated and treatment ending with modalities of MH or cryotherapy and EStim or Ultrasound. Plan of Care Dates Plan of Care Start Date 02/17/22 Plan of Care End Date 05/01/22 Electronically Signed by: Lilia Littlejohn, PT 02/18/22 [id number] If you are in agreement with this Plan of Care, please return a signed and dated copy. I have reviewed this Plan of Care and certify that the skilled therapy services above are required to meet the patient?s needs. Physician Signature Date Printed Name and Credentials Clinical Instructor Signature Printed Name and Credentials
--- NOTE | 2022-02-17 17:16 | PT.OIE ---
Current Diagnoses Muscle weakness (generalized) (02/17/22) Calcific tendinitis of right shoulder (02/17/22) Past Medical History (Last Reviewed 12/23/21 @ 19:53 by Nima Ch DO) Bacterial vaginosis Calcific tendinitis of right shoulder Dyspareunia Dysplasia of cervix, low grade (BOBBI 1) H/O laparoscopy (~09/22/19) History of colposcopy (04/07/18) Ovarian cyst S/P wisdom tooth extraction Past Surgical History (Last Reviewed 12/19/21 @ 02:05 by Camila Koo DO) H/O laparoscopy (~09/22/19) History of colposcopy (04/07/18) S/P wisdom tooth extraction Visit Care Team Role Provider Type Doctor MD [place] Primary Care Provider Non-Staff Specialty: Medical Address: Phone: Fax: Email: Other Providers Specialty: Address: Phone: Fax: Email: Keshawn Becerra PA-C Attending Provider Non-Staff Referring Provider Specialty: Medical Address: [facility], [address] [place] [address], [id number] Email: Physical Therapy Initial Evaluation PT-OP-A Visit Information Start: 12/23/21 14:15 Freq: Status: Active Protocol: Document 02/17/22 14:34 LRN (Rec: 02/17/22 15:24 LRN [id number]) Out-Patient Physical Therapy Visit Information Visit Information Visit Type Initial Evaluation Visit Start Time 14:34 Visit Stop Time 15:21 Total Visit Minutes 47 Visit Number 1 Evaluation Information Evaluation Date 02/17/22 Precautions Precautions ADHD, PTSD with night terror, insomnia, Depression, dx of tension migraines now occasional, neck pain from years of bad posture with reported reverse curvature of the neck. PT-OP-B Current Condition Start: 12/23/21 14:15 Freq: Status: Active Protocol: Document 02/17/22 14:34 LRN (Rec: 02/17/22 15:24 LRN [id number]) Current Condition History of Current Condition Onset Date 2 yrs ago Current Complaints Progressive worsening History of Current Condition Pt reports R shoulder pain of insidious onset that had progressively worsened, causing loss of sleep and decreased function at work. She was given a cortisone injection and her pain resolved, but her job required her to lift heavy buckets full of wet towels and after performing that job duty her pain returned and her function was again decreased with return of difficulty sleeping and worsening pain. She is having difficulty taking care of her dog and can't do her job as well because of the R shoulder pain. When placing the R arm overhead her shoulder locks up and she has to force it down. 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 She has had one cortisone injection but was told she couldn't have another one unles she had PT first. She has numbness & tingling in R arm when trying to go to bed. She is R hand dominant Prior Treatments and Tests Cortisone injection ~Sep or Oct. Chiropractor for back and neck postural deviations. Future Testing and Treatments Planned Being tested for borderline personality disorder. Developmental History Developmental History Pt was given PT at home for her back (2018). Treatment Goals Patient/Caregiver Goals Pt goal with therapy is to complete the PT program so that she can possibly have another cortisone injection or MRI. Prior Functional Status Baseline Function- ADL's Independent Baseline Function- Mobility Independent Baseline Function- Work/School 2 yrs ago her R shoulder did not bother her. Occasionally her R shoulder hurt to the point of pain. Baseline Function- Recreation/Hobbies Was able to walk her dog using her R arm. Baseline Function- Other Had insomnia, but was able to sleep through the night with Ambien. Current Functional Impairments (Reported) Functional Limitations- ADL's Not able to walk her dog with the RUE because of R shoulder pain and she is too weak with her L UE to walk her dog. Every night wakes up every hour due to R shoulder pain and takes Ambien no longer allows her to sleep through the night. She is continuing to take Ambien in hope it will help her to sleep. 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 Personal Factors Other Personal Factors That May Effect Lives by self, has 50# dog to Therapy/Recovery walk, ADHD, PTSD with night terror, insomnia, Depression, dx of tension migraines now occasional, neck pain from years of bad posture with reported reverse curvature of the neck. Plays video games for relaxation. PT-OP-C Subjective Start: 12/23/21 14:15 Freq: Status: Active Protocol: Document 02/17/22 14:34 LRN (Rec: 02/17/22 15:24 LRN [id number]) Patient Questionnaires Quick Dash- Upper Extremity Quick Dash UE Score 81.81 Quick Dash UE Impairment 80 to 99% Impaired (Score 80- 99) OP-PT Pain Assessment Pain Assessment Grid Paper Pain Assessment Grid Completed Yes Location R shoulder Pain Location Details R shoulder that causes swelling in the entire arm and lateral chest. Intensity 9 Scale Used Numeric (0 - 10) Description Aching Description- Other Feels like shoulder disloation Frequency Daily Pain Aggravating Factors Changing Position,Activity, Exercise Other Pain Aggravating Factors Carrying groceries Pain Alleviating Factors Medication Other Pain Alleviating Factors Cortisone injection helped a couple months until doing [employer] work Comments Pain Comments Ice & heat doesn't always help . PT-OP-J Posture/Palpation/Skin Start: 12/23/21 14:15 Freq: Status: Active Protocol: Document 02/17/22 14:34 LRN (Rec: 02/17/22 15:24 LRN [id number]) Posture Evaluation Position Standing Head/C-Spine Posture C-Spine Flattened T-Spine Posture Flattened L-Spine Posture Decreased Lordosis Shoulder Posture (R) Rounded,(R) Forward,(L) Elevated Scapula Posture (R) Rotated Down,(R) Depressed Comments Posture Comments Pt reports L leg is 1 cm longer than R leg. Sway back posturing. Palpation Assessment Location R shoulder Palpation Location Around R shoulder joint is no palpable pain. PT-OP-K Range of Motion Start: 12/23/21 14:15 Freq: Status: Active Protocol: Document 02/17/22 14:34 LRN (Rec: 02/17/22 15:24 LRN [id number]) Cervical Spine Range of Motion Cervical Spine Active Degrees Testing Position Sitting Comments WNL Shoulder Goniometric Range of Motion Shoulder Right Passive Comments Not tolerated Right Active Shoulder ROM WFL No Testing Position Sitting Flexion 132 Extension 60 Abduction 90 External Rotation at 0 degrees Abduction 40 Internal Rotation Behind Back (text) L3 Left Active Shoulder ROM WFL Yes Testing Position Sitting Flexion 170 Extension 80 Abduction 180 External Rotation at 0 degrees Abduction 65 Internal Rotation Behind Back (text) T8 Elbow/Forearm Range of Motion Elbow/Forearm Right Active Elbow/Forearm ROM WFL Yes ROM Testing Position Sitting Left Active Elbow/Forearm ROM WFL Yes ROM Testing Position Sitting PT-OP-L Special Tests Start: 12/23/21 14:15 Freq: Status: Active Protocol: Document 02/17/22 14:34 LRN (Rec: 02/17/22 15:24 LRN [id number]) Special Tests Shoulder Special Tests IR/Horizontal ADD Impingement Test Results Positive R shoulder Comments Very painful to position for test Drop Arm Rotator Cuff Test Results Positive R shoulder Comments Pt not able to slowly lower R arm for overhead Elevation Impingement Test Results Positive R shoulder Comments Very painful with shoulder flexion in supine. PT-OP-M Strength Start: 12/23/21 14:15 Freq: Status: Active Protocol: Document 02/17/22 14:34 LRN (Rec: 02/17/22 15:24 LRN [id number]) Cervical Spine Strength Cervical Spine Manual Muscle Testing Testing Position Sitting Comments Generally 5/5 Shoulder Strength Shoulder Manual Muscle Testing Right Comments Generally 2/5 due to pain. Left Comments Generally 5/5 Elbow/Forearm Strength Elbow and Forearm Manual Muscle Testing Right Comments Generally 5/5 Left Comments Generally 5/5 PT-OP-Q Treatments Start: 12/23/21 14:15 Freq: Status: Active Protocol: Document 02/17/22 14:34 LRN (Rec: 02/17/22 15:24 LRN [id number]) Self-Care/Home Management Treatment Education Other Education Discussed results of evaluation, goals, and plan of care (POC). Pt agreeable to goals and POC. PT-OP-T Assessment and Plan Start: 12/23/21 14:15 Freq: Status: Active Protocol: Document 02/17/22 14:34 LRN (Rec: 02/17/22 15:24 LRN [id number]) Physical Therapy Assessment Rehab Potential Rehabilitation Potential Fair Evaluation Complexity Number of Personal Factors/Comorbidities 3 or More Number of Body Systems Impaired 4 or More Clinical Presentation at Evaluation Evolving Impairments Impairments Activity Tolerance,Pain, Posture,ROM,Soft Tissue Mobility,Strength Goals Four Impairment Decreased R shoulder strength Impairment Generally 2/5 Short Term Goal (STG) Normalize R scapular positioning. STG Duration 03/17/22 Supervisory Investigative Specialist Goal (LTG) Improve R shoulder strength to 4/5. LTG Duration 05/01/22 Three Impairment Decreased R shoulder AROM Impairment AROM in deg's: Flex 132 R, 170 L; Ext 60 R, 80 L; AB 90 R , 180 L; ER (0 deg's AB) 40 R, 65 L; reaching behind back - L3 R, T8 L. Short Term Goal (STG) Pt will be able to demonstrate knowledge of proper scapulohumeral rhythm coordination of R UE with AROM resulting in decrease pain with motion. STG Duration 03/17/22 Prison Goal (LTG) Improve painfree R shoulder AROM. LTG Duration 05/01/22 Two Impairment R shoulder pain Impairment Pain rated 4-9/10 Short Term Goal (STG) Pt will be educated in use of modalities for pain management STG Duration 03/30/22 Prison Goal (LTG) Decrease pain to level of 3-4 with R shoulder AROM in sub maximal range. LTG Duration 05/01/22 One Impairment HEP Impairment and pain management ( modalities & deep breathing). Pt will be progressed on a ROM, Codman's and RC strengthening program as tolerated Short Term Goal (STG) Pt will be educated in proper posturing and body mechanics. STG Duration 03/30/22 Supervisory Investigative Specialist Goal (LTG) Pt will be independent in a self care HEP. LTG Duration 05/01/22 Assessment Summary Assessment Pt present with soft tissue and mechanical dysfunction of the R shoulder. She has poor coordination of her rotator cuff muscles and poor GHJ mechanics associated to poor posturing. She did not tolerate assessment of her R shoulder strength, but presents with impingement indicating rotator cuff dysfunction. Possible tear could not be assessed due to her avoidance of pain. Her UE function is 80-99% impaired per UE Quickdash functional score. The pt has very limited insurance benefits for the year; therefore the pt agrees to focusing more on self care and a HEP over a longer period of time with intermittent visits. I suspect the 8 visits her insurance allows will make it difficult for the pt to improve enough to achieve return of function, since indicates she will not be able to afford out of pocket PT visits. She will benefit from skilled physical therapy for education onto a self care program and a ROM/ex program that will help her to progress independently once she is discharged from therapy. Use of modalities and manual therapy will be helpful in reducing pain after exercise. Physical Therapy Plan Frequency and Duration Frequency of Treatment 2x/Week Plan of Care Start Date 02/17/22 Plan of Care End Date 05/01/22 Therapeutic Interventions Therapeutic Interventions Aquatic Therapy,Home Exercise Program,Manual Therapy,Patient /Caregiver Education,Self-Care /Home Management,Soft Tissue Mobilization,Taping, Therapeutic Activities, Therapeutic Exercises Modalities Cold Pack/Ice Massage Next Visit Focus/Plan Next Note Type Treatment Note Next Visit Plan Self care education in proper posturing, body mechanics and pain management (modalities & deep breathing). Pt will be progressed on a ROM, Codman's and RC strengthening program as tolerated and treatment ending with modalities of MH or cryotherapy and EStim or Ultrasound.
--- NOTE | 2022-02-20 16:24 | PT-OP ANOTE ---
Patient DNS for PT appointment. PT called and patient reports she thought she wasn't coming back until next week; confusion about schedule.
--- NOTE | 2022-02-27 13:21 | PT-OP ANOTE ---
Pt DNS, attempted to notify pt by phone, but her mailbox was full.
--- NOTE | 2022-03-24 11:44 | PT-OP ANOTE ---
Pt DNS. Attempted to contact patient to inform of cancellation and DNS policy but the pt's mailbox was full. Pt has 2 more appointments scheduled. Will attempt to contact patient regarding remaining appointments and discharge due to policy with plan of discharge after contact made unless reasons are appropriate for continuing therapy.
--- NOTE | 2022-04-29 09:11 | PT.OPDS ---
Current Diagnoses Muscle weakness (generalized) (02/17/22) Calcific tendinitis of right shoulder (02/17/22) Visit Care Team Role Provider Type Doctor MD [place] Primary Care Provider Non-Staff Specialty: Medical Address: Phone: Fax: Email: Other Providers Specialty: Address: Phone: Fax: Email: Keshawn Becerra PA-C Attending Provider Non-Staff Referring Provider Specialty: Medical Address: [facility], [address] [place] [address] , [place], [address] Email: Visit Number Visit Number 1 Discharge Summary PT-OP-B Current Condition Start: 12/23/21 14:15 Freq: Status: Active Protocol: Document 02/17/22 14:34 LRN (Rec: 02/17/22 15:24 LRN [id number]) Current Condition History of Current Condition Onset Date 2 yrs ago Current Complaints Progressive worsening History of Current Condition Pt reports R shoulder pain of insidious onset that had progressively worsened, causing loss of sleep and decreased function at work. She was given a cortisone injection and her pain resolved, but her job required her to lift heavy buckets full of wet towels and after performing that job duty her pain returned and her function was again decreased with return of difficulty sleeping and worsening pain. She is having difficulty taking care of her dog and can't do her job as well because of the R shoulder pain. When placing the R arm overhead her shoulder locks up and she has to force it down. 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 She has had one cortisone injection but was told she couldn't have another one unles she had PT first. She has numbness & tingling in R arm when trying to go to bed. She is R hand dominant Prior Treatments and Tests Cortisone injection ~Sep or Oct. Chiropractor for back and neck postural deviations. Future Testing and Treatments Planned Being tested for borderline personality disorder. Developmental History Developmental History Pt was given PT at home for her back (2018). Treatment Goals Patient/Caregiver Goals Pt goal with therapy is to complete the PT program so that she can possibly have another cortisone injection or MRI. Prior Functional Status Baseline Function- ADL's Independent Baseline Function- Mobility Independent Baseline Function- Work/School 2 yrs ago her R shoulder did not bother her. Occasionally her R shoulder hurt to the point of pain. Baseline Function- Recreation/Hobbies Was able to walk her dog using her R arm. Baseline Function- Other Had insomnia, but was able to sleep through the night with Ambien. Current Functional Impairments (Reported) Functional Limitations- ADL's Not able to walk her dog with the RUE because of R shoulder pain and she is too weak with her L UE to walk her dog. Every night wakes up every hour due to R shoulder pain and takes Ambien no longer allows her to sleep through the night. She is continuing to take Ambien in hope it will help her to sleep. 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 Personal Factors Other Personal Factors That May Effect Lives by self, has 50# dog to Therapy/Recovery walk, ADHD, PTSD with night terror, insomnia, Depression, dx of tension migraines now occasional, neck pain from years of bad posture with reported reverse curvature of the neck. Plays video games for relaxation. PT-OP-C Subjective Start: 12/23/21 14:15 Freq: Status: Active Protocol: Document 02/17/22 14:34 LRN (Rec: 02/17/22 15:24 LRN [id number]) Patient Questionnaires Quick Dash- Upper Extremity Quick Dash UE Score 81.81 Quick Dash UE Impairment 80 to 99% Impaired (Score 80- 99) OP-PT Pain Assessment Pain Assessment Grid Paper Pain Assessment Grid Completed Yes Location R shoulder Pain Location Details R shoulder that causes swelling in the entire arm and lateral chest. Intensity 9 Scale Used Numeric (0 - 10) Description Aching Description- Other Feels like shoulder disloation Frequency Daily Pain Aggravating Factors Changing Position,Activity, Exercise Other Pain Aggravating Factors Carrying groceries Pain Alleviating Factors Medication Other Pain Alleviating Factors Cortisone injection helped a couple months until doing [employer] work Comments Pain Comments Ice & heat doesn't always help . PT-OP-J Posture/Palpation/Skin Start: 12/23/21 14:15 Freq: Status: Active Protocol: Document 02/17/22 14:34 LRN (Rec: 02/17/22 15:24 LRN [id number]) Posture Evaluation Position Standing Head/C-Spine Posture C-Spine Flattened T-Spine Posture Flattened L-Spine Posture Decreased Lordosis Shoulder Posture (R) Rounded,(R) Forward,(L) Elevated Scapula Posture (R) Rotated Down,(R) Depressed Comments Posture Comments Pt reports L leg is 1 cm longer than R leg. Sway back posturing. Palpation Assessment Location R shoulder Palpation Location Around R shoulder joint is no palpable pain. PT-OP-K Range of Motion Start: 12/23/21 14:15 Freq: Status: Active Protocol: Document 02/17/22 14:34 LRN (Rec: 02/17/22 15:24 LRN [id number]) Cervical Spine Range of Motion Cervical Spine Active Degrees Testing Position Sitting Comments WNL Shoulder Goniometric Range of Motion Shoulder Right Passive Comments Not tolerated Right Active Shoulder ROM WFL No Testing Position Sitting Flexion 132 Extension 60 Abduction 90 External Rotation at 0 degrees Abduction 40 Internal Rotation Behind Back (text) L3 Left Active Shoulder ROM WFL Yes Testing Position Sitting Flexion 170 Extension 80 Abduction 180 External Rotation at 0 degrees Abduction 65 Internal Rotation Behind Back (text) T8 Elbow/Forearm Range of Motion Elbow/Forearm Right Active Elbow/Forearm ROM WFL Yes ROM Testing Position Sitting Left Active Elbow/Forearm ROM WFL Yes ROM Testing Position Sitting PT-OP-L Special Tests Start: 12/23/21 14:15 Freq: Status: Active Protocol: Document 02/17/22 14:34 LRN (Rec: 02/17/22 15:24 LRN [id number]) Special Tests Shoulder Special Tests IR/Horizontal ADD Impingement Test Results Positive R shoulder Comments Very painful to position for test Drop Arm Rotator Cuff Test Results Positive R shoulder Comments Pt not able to slowly lower R arm for overhead Elevation Impingement Test Results Positive R shoulder Comments Very painful with shoulder flexion in supine. PT-OP-M Strength Start: 12/23/21 14:15 Freq: Status: Active Protocol: Document 02/17/22 14:34 LRN (Rec: 02/17/22 15:24 LRN [id number]) Cervical Spine Strength Cervical Spine Manual Muscle Testing Testing Position Sitting Comments Generally 5/5 Shoulder Strength Shoulder Manual Muscle Testing Right Comments Generally 2/5 due to pain. Left Comments Generally 5/5 Elbow/Forearm Strength Elbow and Forearm Manual Muscle Testing Right Comments Generally 5/5 Left Comments Generally 5/5 PT-OP-T Assessment and Plan Start: 12/23/21 14:15 Freq: Status: Active Protocol: Document 04/29/22 09:06 LRN (Rec: 04/29/22 09:11 LRN [id number]) Physical Therapy Assessment Goals Four Impairment Decreased R shoulder strength Impairment Generally 2/5 Short Term Goal (STG) Normalize R scapular positioning. STG Duration 03/17/22 (04/29/22: GOAL NOT MET) Assisted Goal (LTG) Improve R shoulder strength to 4/5. LTG Duration 05/01/22 (04/29/22: GOAL NOT MET, pt unavailable for final assessment) Three Impairment Decreased R shoulder AROM Impairment AROM in deg's: Flex 132 R, 170 L; Ext 60 R, 80 L; AB 90 R , 180 L; ER (0 deg's AB) 40 R, 65 L; reaching behind back - L3 R, T8 L. Short Term Goal (STG) Pt will be able to demonstrate knowledge of proper scapulohumeral rhythm coordination of R UE with AROM resulting in decrease pain with motion. STG Duration 03/17/22 (04/29/22: GOAL NOT MET) Bra[employer] Coater Goal (LTG) Improve painfree R shoulder AROM. LTG Duration 05/01/22 (04/29/22: GOAL NOT MET, pt unavailable for final assessment) Two Impairment R shoulder pain Impairment Pain rated 4-9/10 Short Term Goal (STG) Pt will be educated in use of modalities for pain management STG Duration 03/30/22 (04/29/22: GOAL NOT MET) Assisted Goal (LTG) Decrease pain to level of 3-4 with R shoulder AROM in sub maximal range. LTG Duration 05/01/22 (04/29/22: GOAL NOT MET, pt unavailable for final assessment) One Impairment HEP Impairment and pain management ( modalities & deep breathing). Pt will be progressed on a ROM, Codman's and RC strengthening program as tolerated Short Term Goal (STG) Pt will be educated in proper posturing and body mechanics. STG Duration 03/30/22 (04/29/22: GOAL NOT MET) Brake [employer]ings Coater Goal (LTG) Pt will be independent in a self care HEP. LTG Duration 05/01/22 (04/29/22: GOAL NOT MET) Assessment Summary Assessment Pt was seen for her initial referral and canceled or no showed for her remaining 9 appointments. The pt is being discharged due to lack of attendance. Physical Therapy Plan Discharge Physical Therapy Discharge Reasons No Longer Attending PT Discharge Comments Pt discharged from lack of attendance. Thank you for your referral.
== END 2022-04-30 14:02 ==
LOC: PHYS 14:17
PROVIDERS: Referring Provider Physician Assistant Surgical; Visit Provider Physician Assistant Surgical
DX: M75.31 Calcific tendinitis of right shoulder (principal); M62.81 Muscle weakness (generalized)
CPT/HCPCS: 97162

== ENCOUNTER 2022-04-15 11:45 | Emergency (ER) | payer OTHER, MEDICAID, SELFPAY ==
[2022-04-15 12:33] VITALS: BP 160/96; PULSE 81; RESP 17; TEMP 36.6; O2SAT 99
--- NOTE | 2022-04-15 15:30 | DI.US.S_ITS ---
PROCEDURE: US ABDOMEN LIMITED INDICATIONS: umbilical pain and discharge from umbilicus TECHNIQUE: Real-time focused scanning was performed of the abdomen, with image documentation. COMPARISON: None. FINDINGS: Multiple grayscale color Doppler images of the umbilicus were acquired targeting the patient directed area of pain and discharge. No focal fluid collection seen. There is soft tissue hyperemia within this area. There is also a 4 mm linear, echogenic focus within the deeper portions of the umbilicus without surrounding fluid collection or vascularity. This may represent a foreign body versus possible suture material given reported history of laparoscopic surgery. No umbilical hernia identified IMPRESSION: A 4 mm linear echogenic focus within the umbilicus which may represent a foreign body versus possible suture material given history of prior laparoscopic surgery. No surrounding fluid collections. There is mild soft tissue hyperemia surrounding the umbilicus. No evidence for an umbilical hernia. Dictated by: Brent Rutherford M.D. on 04/15/2022 at 16:57 Approved by: Brent Rutherford M.D. on 04/15/2022 at 17:01
--- NOTE | 2022-04-15 15:31 | ED_ITS ---
HPI - Wound/Laceration <Gorge Wells PA-C - Last Filed: 04/15/22 18:34> General Chief Complaint: Wound/Laceration Stated Complaint: Thinks ruptured cyst Time Seen by Provider: 04/15/22 14:14 Source: patient Mode of arrival: Ambulatory History of Present Illness HPI narrative: Patient is a 31-year-old female who presents to the ED complaining of pain and discharge from her belly button. It started a couple days ago and has become progressively worse she has had a piercing of her belly button that she had done approximately 10 years ago. She denies any other foreign body insertion in the area. She did notice that she has started having some brownish discharge from her belly button and she is having significant pain behind. She denies any recent trauma or any other known exposure. She is also complaining of some vaginal discharge had which she describes it to be white and she is concerned about having a yeast infection. She denies any fever body aches chills nausea vomiting diarrhea chest pain shortness of breath. Related Data Home Medications Medication Instructions Recorded Confirmed methylphenidate HCl 5 mg tablet 5 tab PO BID 04/15/22 04/15/22 prazosin 2 mg capsule See Rx Instructions .Route .COMPLEX 04/15/22 04/15/22 zolpidem 6.25 mg tablet,extended 12.5 mg PO BEDTIME PRN insomnia 04/15/22 04/15/22 release,multiphase (Ambien CR) Allergies Allergy/AdvReac Type Severity Reaction Status Date / Time doxycycline AdvReac n/v Verified 04/15/22 12:35 guaifenesin [From Mucinex] AdvReac n/v Verified 04/15/22 12:35 trazodone AdvReac mental Verified 04/15/22 12:35 status changes Review of Systems <Gorge Wells PA-C - Last Filed: 04/15/22 18:34> Review of Systems ROS Unobtainable: All systems reviewed & are unremarkable except as noted in HPI and below Constitutional Constitutional: Denies chills, Denies fatigue, Denies fever(s), Denies frequent falls, Denies lethargy and Denies weakness Eyes Eyes: Denies change in vision, Denies eye discharge, Denies irritation and Denies loss of vision ENT Ears, Nose, Mouth, and Throat: Denies change in voice, Denies dizziness, Denies neck pain, Denies sore throat and Denies throat swelling Cardiovascular Cardiovascular: Denies chest pain, Denies irregular heart rhythm, Denies lightheadedness, Denies palpitations, Denies dyspnea, Denies dyspnea on exertion and Denies orthopnea Respiratory Respiratory: Denies cough, Denies dyspnea, Denies dyspnea on exertion and Denies wheezing Gastrointestinal Gastrointestinal: Reports abdominal pain, Denies change in bowel habits, Denies diarrhea, Denies nausea and Denies vomiting Genitourinary Genitourinary: Denies hematuria, Denies flank pain, Denies urinary incontinence and Denies urinary urgency Musculoskeletal Musculoskeletal: Denies back pain, Denies muscle weakness, Denies neck pain, Denies numbness and Denies tingling Integumentary/Breasts Skin/Breast: Denies pruritus, Denies erythema, Denies rash and Denies wounds Neurologic Neurologic: Denies behavioral changes, Denies confusion, Denies dizziness, Denies frequent falls, Denies loss of vision, Denies numbness, Denies tingling and Denies weakness Psychiatric Psychiatric: Denies anxiety, Denies behavioral changes, Denies confusion, Denies depression, Denies homicidal ideation and Denies suicidal ideation Endocrine Endocrine: Denies fatigue, Denies flushing and Denies palpitations Hematologic/Lymphatic Hematologic/Lymphatic: Denies easy bruising Allergic/Immunologic Allergic/Immunologic: Denies urticaria, Denies throat swelling and Denies wheezing Patient History <Gorge Wells PA-C - Last Filed: 04/15/22 18:34> Medical History Bacterial vaginosis Calcific tendinitis of right shoulder Dyspareunia Dysplasia of cervix, low grade (BOBBI 1) Ovarian cyst Surgical History H/O laparoscopy (~09/22/19) History of colposcopy (04/07/18) S/P wisdom tooth extraction Social History Smoking Status: Current every day smoker alcohol intake: current Smoking Status: Current every day smoker tobacco type: cigarettes alcohol intake frequency: other Substance Use Type: marijuana Exam <Gorge Wells PA-C - Last Filed: 04/15/22 18:34> Initial Vital Signs Initial Vital Signs: Vital Signs Temperature 97.8 F 04/15/22 12:33 Pulse Rate 81 04/15/22 12:33 Respiratory Rate 17 04/15/22 12:33 Blood Pressure 160/96 H 04/15/22 12:33 Pulse Oximetry 99 04/15/22 12:33 Oxygen Delivery Method 04/15/22 12:33 Const General: cooperative, healthy appearing and comfortable Nutritional Appearance: average body habitus Orientation: Orientation [facility] Head: normal to inspection and normocephalic Ears: hearing grossly normal bilaterally and external ears normal Nose: external nose normal Face and sinus: normal facial exam Mouth: oral mucosae normal Teeth and gingiva: dentition normal and gingiva normal Resp Effort & Inspection: normal respiratory effort and able to speak in complete sentences GI Inspection: normal to inspection Palpation: soft, no hepatosplenomegaly and tender (Around the umbilicus region) Percussion: normal to percussion Auscultation: normal bowel sounds Skin General: no rashes or lesions noted <Osman Kaur DO - Last Filed: 04/17/22 09:59> Initial Vital Signs Initial Vital Signs: Vital Signs Temperature 97.8 F 04/15/22 12:33 Pulse Rate 81 04/15/22 12:33 Respiratory Rate 17 04/15/22 12:33 Blood Pressure 160/96 H 04/15/22 12:33 Pulse Oximetry 99 04/15/22 12:33 Oxygen Delivery Method 04/15/22 12:33 Course <Gorge Wells PA-C - Last Filed: 04/15/22 18:34> Orders Ordered: ED Orders 04/15/22 15:30 US abdomen limited Stat 04/15/22 15:43 UA dip and micro [Urinalysis and Microscopic] Stat Urine Culture Stat 04/15/22 17:19 CT abdomen pelvis w con Stat 04/15/22 17:35 CBC Auto Diff [Complete Blood Count AUTO DIFF] Stat CMP [Comprehensive Metabolic Panel] Stat Lipase Stat 04/15/22 18:25 Wound Culture and Gram Stain Stat Reevaluation(s) Reevaluation #1: Patient continuing to have centralized abdominal pain and cramping. Vital Signs Vital signs: Vital Signs - 8 hr 04/15/22 12:33 Temperature 97.8 F Pulse Rate 81 Respiratory Rate 17 Blood Pressure 160/96 H Pulse Oximetry 99 Oxygen Delivery Method Room Air <Osman Kaur DO - Last Filed: 04/17/22 09:59> Orders Ordered: ED Orders 04/15/22 15:30 US abdomen limited Stat 04/15/22 15:43 UA dip and micro [Urinalysis and Microscopic] Stat Urine Culture Stat 04/15/22 17:19 CT abdomen pelvis w con Stat 04/15/22 17:35 CBC Auto Diff [Complete Blood Count AUTO DIFF] Stat CMP [Comprehensive Metabolic Panel] Stat Lipase Stat 04/15/22 18:25 Wound Culture and Gram Stain Stat Vital Signs Vital signs: Vital Signs - 8 hr 04/15/22 12:33 Temperature 97.8 F Pulse Rate 81 Respiratory Rate 17 Blood Pressure 160/96 H Pulse Oximetry 99 Oxygen Delivery Method Room Air MDM - Wound/Laceration <Gorge Wells PA-C - Last Filed: 04/15/22 18:34> Differential Diagnosis Differential diagnosis: Likely other Lab Data Result diagrams: 04/15/22 17:35 04/15/22 17:35 Labs: Lab Results 04/15/22 04/15/22 04/15/22 Range/Units 15:43 17:35 17:35 WBC 11.6 H (4.5-11.0) X10^3/uL RBC 4.43 (4.0-5.2) X10^6/uL Hgb 14.1 (12.0-16.0) g/dL Hct 41.1 (36-46) % MCV 92.9 (80-100) fL MCH 31.8 (26-34) PG MCHC 34.2 (30-36) % RDW 12.9 (11.6-14.8) % Plt Count 228 (150-400) X10^3/uL Neut % (Auto) 44.7 L (50-75) % Lymph % (Auto) 46.7 H (25-40) % [place] % (Auto) 5.5 (3-14) % Eos % (Auto) 2.4 (2-4) % Baso % (Auto) 0.7 (0-2) % Neut # (Auto) 5200 (5930-5331) /uL Lymph # (Auto) 5400 H (3062-4468) /uL [place] # (Auto) 600 (0-900) /uL Eos # (Auto) 300 (0-450) /uL Baso # (Auto) 100 (0-100) /uL Plt Morphology Comment RBC Morphology Normal morphology Sodium 137 (137-145) mmol/L Potassium 3.6 (3.4-5.1) mmol/L Chloride 104 (98-107) mmol/L Carbon Dioxide 28 (22-32) mmol/L BUN 9 (7-17) mg/dL Creatinine 0.70 (0.52-1.04) mg/dL Estimated GFR > 60 (>60) mL/min BUN/Creatinine Ratio 12.9 (6-22) Glucose 87 (70-100) mg/dL Calcium 9.1 (8.4-10.2) mg/dL Total Bilirubin 0.5 (0.2-1.3) mg/dL AST 28 (14-36) IU/L ALT 25 (<35) IU/L Alkaline Phosphatase 71 (38-126) U/L Total Protein 7.2 (6.3-8.2) g/dL Albumin 4.2 (3.5-5.0) g/dL Globulin 3.0 (1.7-4.1) g/dL Albumin/Globulin Ratio 1.4 (1.0-2.8) Lipase 52 (23-300) U/L Urine Color Yellow Urine Appearance Clear Urine pH 6.5 (4.5-8.0) Ur Specific Prentiss <=1.005 (1.000-1.035) Urine Protein Negative (Negative) Urine Glucose (UA) Negative (Negative) g/dL Urine Ketones Negative (NEGATIVE) Urine Occult Blood Negative (Negative) Urine Nitrate Negative (Negative) Urine Bilirubin Negative (NEGATIVE) Urine Urobilinogen 0.2 (0.2) E.U./dL Ur Leukocyte Esterase Negative (NEGATIVE) Urine RBC None seen (0-5/HPF) Urine WBC 0-1/hpf (0-5/HPF) Ur Squamous Epith Cells 1-5 /hpf D (0-5/HPF) Amorphous Sediment 2+ Urine Bacteria Few (2-10) H (None) Ur Culture Indicated? Specimen cultured Imaging Data CT scan - abdomen/pelvis: Radiologist's Impression: [address] [address] [address] Scan Report Signed Patient: Tash Rivero MR#: [id number] : 1990 Acct:[id number] Age/Sex: 31 / F Date of Service: 04/15/22 Loc: ED Accession Number: [id number] ?? Procedure: CT abdomen pelvis w con Ordering Provider: Gorge Wells P.A-C PROCEDURE:? CT ABDOMEN PELVIS W CON ? INDICATIONS:? abdominal pain ? TECHNIQUE:? After the administration of intravenous contrast, axial sections acquired from the lung bases to the pubic symphysis.? Coronal and sagittal reformats were performed.? For radiation dose reduction, the following was used:? automated exposure control, adjustment of mA and/or kV according to patient size.? ? COMPARISON:? [facility], CT, CT ABDOMEN PELVIS W CON, 04/15/2021, 11:43.? [facility], CT, CT ABDOMEN PELVIS W CON, 02/20/2021, 12:50.? [facility], CT, CT KIDNEY URETER BLADDER (KUB), 12/19/2021, 1:18. ? FINDINGS:? Image quality:? Excellent.? ? Lung bases:? Mild dependent atelectasis. Heart:? No significant findings. ? ABDOMEN: Liver:? Unremarkable.? ? Gallbladder:? Unremarkable.? ? Biliary ducts:? Unremarkable.? ? Pancreas:? Unremarkable.? ? Spleen:? Unremarkable.? ? Adrenal Glands:? Unremarkable.? ? Kidneys and Ureters:? Unremarkable.? ? ? Stomach and Bowel:? Status post appendectomy.? Mildly prominent fluid-filled nondilated loops of small bowel are seen in the central abdomen.? The wall of the sigmoid colon appears mildly thickened.? Peritoneum:? No abnormal intraperitoneal fluid.? No free air.? ? Ventral Wall: ? No hernias.? Abdominal Nodes:? No retroperitoneal or mesenteric adenopathy by size criteria.? Vessels:? Aorta and inferior vena cava are normal in size.? ? PELVIS: Pelvic Organs:? Unremarkable.? ? Bladder:? Unremarkable.? ? Pelvic Nodes: No enlarged lymph nodes.? Miscellaneous: No hernias are seen. ? ? ? Bones:? Unremarkable.? IMPRESSION:? Nondilated fluid-filled loops of small bowel in the central abdomen and borderline bowel wall thickening in the colon are nonspecific findings, but can be seen in the setting of a mild enterocolitis.? No signs of small bowel obstruction. ? ? Dictated by: Bradford Lemons M.D. on 04/15/2022 at 18:03 ? ? Approved by: Bradford Lemons M.D. on 04/15/2022 at 18:07?? US - abdomen: Radiologist's Impression: [address] [address] Ultrasound Report Signed Patient: Tash Rivero MR#: [id number] : 1990 Acct:[id number] Age/Sex: 31 / F Date of Service: 04/15/22 Loc: ED Accession Number: [id number] ?? Procedure: US abdomen limited Ordering Provider: Gorge Wells P.A-C PROCEDURE: US ABDOMEN LIMITED ? INDICATIONS:? umbilical pain and discharge from umbilicus ? TECHNIQUE:? Real-time focused scanning was performed of the abdomen, with image documentation.? ? COMPARISON:? None. ? FINDINGS:? Multiple grayscale color Doppler images of the umbilicus were acquired targeting the patient directed area of pain and discharge.? No focal fluid collection seen.? There is soft tissue hyperemia within this area.? There is also a 4 mm linear, echogenic focus within the deeper portions of the umbilicus without surrounding fluid collection or vascularity.? This may represent a foreign body versus possible suture material given reported history of laparoscopic surgery.? No umbilical hernia identified ? IMPRESSION:? A 4 mm linear echogenic focus within the umbilicus which may represent a foreign body versus possible suture material given history of prior laparoscopic surgery.? No surrounding fluid collections.? There is mild soft tissue hyperemia surrounding the umbilicus.? No evidence for an umbilical hernia. ? ? ? Dictated by: Brent Rutherford M.D. on 04/15/2022 at 16:57 ? ? Approved by: Brent Rutherford M.D. on 04/15/2022 at 17:01? MDM Narrative Medical decision making narrative: Patient was seen today for her complaints of abdominal pain. The ultrasound done today was nonspecific and as result a CT abdomen pelvis with contrast was ordered. There was evidence of enteritis reflective on the CT results that is out aligned with her abdominal pain symptoms. I spoke to patient regarding the findings on the CT scan and advised her to limit her p.o. intake to clear liquids for the next couple of days. In reflection of the etiology of the discharge the patient identified from her belly button I recommended a wound culture of which was obtained and swabbed an ordered and sent off. Patient seemed dismissive of the findings and was upset that there was no identifiable reason for the discharge within her belly button. Patient will follow-up with PCP for further treatment and evaluation. I advised patient that the wound culture results if they were positive would be call to her once the results were obtained. Patient's lab work today does show evidence of leukocytosis however when looking back at her previous lab work throughout the year they have all showed evidence of leukocytosis her differential does show elevation in lymphocytes. Chemistry panel was unremarkable and UA did not show any signs of infection nor any thing identified on the micro. <Osman Kaur, DO - Last Filed: 04/17/22 09:59> Lab Data Labs: Lab Results 04/15/22 04/15/22 04/15/22 Range/Units 15:43 17:35 17:35 WBC 11.6 H (4.5-11.0) X10^3/uL RBC 4.43 (4.0-5.2) X10^6/uL Hgb 14.1 (12.0-16.0) g/dL Hct 41.1 (36-46) % MCV 92.9 (80-100) fL MCH 31.8 (26-34) PG MCHC 34.2 (30-36) % RDW 12.9 (11.6-14.8) % Plt Count 228 (150-400) X10^3/uL Neut % (Auto) 44.7 L (50-75) % Lymph % (Auto) 46.7 H (25-40) % [place] % (Auto) 5.5 (3-14) % Eos % (Auto) 2.4 (2-4) % Baso % (Auto) 0.7 (0-2) % Neut # (Auto) 5200 (8899-1506) /uL Lymph # (Auto) 5400 H (2980-7088) /uL [place] # (Auto) 600 (0-900) /uL Eos # (Auto) 300 (0-450) /uL Baso # (Auto) 100 (0-100) /uL Plt Morphology Comment RBC Morphology Normal morphology Sodium 137 (137-145) mmol/L Potassium 3.6 (3.4-5.1) mmol/L Chloride 104 (98-107) mmol/L Carbon Dioxide 28 (22-32) mmol/L BUN 9 (7-17) mg/dL Creatinine 0.70 (0.52-1.04) mg/dL Estimated GFR > 60 (>60) mL/min BUN/Creatinine Ratio 12.9 (6-22) Glucose 87 (70-100) mg/dL Calcium 9.1 (8.4-10.2) mg/dL Total Bilirubin 0.5 (0.2-1.3) mg/dL AST 28 (14-36) IU/L ALT 25 (<35) IU/L Alkaline Phosphatase 71 (38-126) U/L Total Protein 7.2 (6.3-8.2) g/dL Albumin 4.2 (3.5-5.0) g/dL Globulin 3.0 (1.7-4.1) g/dL Albumin/Globulin Ratio 1.4 (1.0-2.8) Lipase 52 (23-300) U/L Urine Color Yellow Urine Appearance Clear Urine pH 6.5 (4.5-8.0) Ur Specific Prentiss <=1.005 (1.000-1.035) Urine Protein Negative (Negative) Urine Glucose (UA) Negative (Negative) g/dL Urine Ketones Negative (NEGATIVE) Urine Occult Blood Negative (Negative) Urine Nitrate Negative (Negative) Urine Bilirubin Negative (NEGATIVE) Urine Urobilinogen 0.2 (0.2) E.U./dL Ur Leukocyte Esterase Negative (NEGATIVE) Urine RBC None seen (0-5/HPF) Urine WBC 0-1/hpf (0-5/HPF) Ur Squamous Epith Cells 1-5 /hpf D (0-5/HPF) Amorphous Sediment 2+ Urine Bacteria Few (2-10) H (None) Ur Culture Indicated? Specimen cultured Discharge Plan Departure Patient Disposition: Home Clinical Impression: Enteritis, Abdominal pain Instructions: DI for Viral Gastroenteritis -- Adult, Gastroenteritis Diet Activity Restrictions/Additional Instructions: Your complaints today for of your abdominal pain are likely the result of inflammation of her small bowel which is commonly called gastroenteritis. Her the instructions for the recommended diet are included with her discharge instructions and should include bland easy digestible food a clear liquid diet would be ideal. A wound culture was obtained from your belly button and will be sent off to the lab for evaluation. I would obtain some chlorhexidine solution and wash her belly button and the piercing as well to ensure cleanliness. Your urine micro did not show any evidence of any yeast buds or infection growing and as result there was nothing to treat. You can return to the ED if her symptoms worsen or you can follow-up with her PCP for further evaluation and treatment. Thank you for the opportunity to care for you today. Prescriptions: No Action methylphenidate HCl 5 mg tablet 5 tab PO BID Label Comments: take 1 tablet by mouth twice a day before breakfast AND AT LUNCH prazosin 2 mg capsule See Rx Instructions .ROUTE .COMPLEX Label Comments: take 1 capsule by mouth every morning and take 2 capsules at bedtime Rx Instructions: 2mg in the morning, 4mg at night zolpidem [Ambien CR] 6.25 mg tablet,ext release multiphase 12.5 mg PO BEDTIME PRN (Reason: insomnia) Referrals: Miscellaneous,Doctor, MD [Primary Care Provider] - Visit Report Forms: Patient Portal/API <Osman Kaur DO - Last Filed: 04/17/22 09:59> Cosign ED Attending Kaityature Attestation: I was immediately available in the department for consultation. This documentation has been reviewed and I agree with assessment and plan. Supervised by Osman Kaur DO
--- NOTE | 2022-04-15 15:39 | PC.NURSE ---
Pt reports intense pain around her navel that began 3 days ago. She removed her piercing, which she reported having since 18. Reports brown drainage. Clear drainage with dried blood noted. Pt reports pain is most intense around navel, but radiates through all 4 quadrants of her abdomen and wraps around to her lower back. Pt is tender to touch of abdomen.
[2022-04-15 15:47] LABS: Appearance Urine UA CLEAR; Bilirubin Urine UA NEGATIVE (NEGATIVE); Color Urine UA YELLOW; Glucose Urine UA NEGATIVE (Negative); Ketones Urine UA NEGATIVE (NEGATIVE); Leukocyte Esterase Urine UA NEGATIVE (NEGATIVE); Nitrite Urine UA NEGATIVE (Negative); Occult Blood Urine UA NEGATIVE (Negative); Protein Urine UA NEGATIVE (Negative); Specific Gravity Urine UA <=1.005 (1.000-1.035); Urobilinogen Urine UA 0.2 E.U./dL (0.2)
[2022-04-15 15:48] LABS: pH Urine UA 6.5 (4.5-8.0)
[2022-04-15 15:54] LABS: RBC Urine None Seen (0-5/HPF)
[2022-04-15 15:55] LABS: Amorphous Sediment Urine 2+; Bacteria Urine Few (2-10); Culture Indicated Urine Specimen Cultured; Squamous Epithelial Cell Urine 1-5 /HPF (0-5/HPF); WBC Urine 0-1/HPF (0-5/HPF)
--- NOTE | 2022-04-15 17:19 | DI.CT.S_ITS ---
PROCEDURE: CT ABDOMEN PELVIS W CON INDICATIONS: abdominal pain TECHNIQUE: After the administration of intravenous contrast, axial sections acquired from the lung bases to the pubic symphysis. Coronal and sagittal reformats were performed. For radiation dose reduction, the following was used: automated exposure control, adjustment of mA and/or kV according to patient size. COMPARISON: [facility], CT, CT ABDOMEN PELVIS W CON, 04/15/2021, 11:43. [facility], CT, CT ABDOMEN PELVIS W CON, 02/20/2021, 12:50. [facility], CT, CT KIDNEY URETER BLADDER (KUB), 12/19/2021, 1:18. FINDINGS: Image quality: Excellent. Lung bases: Mild dependent atelectasis. Heart: No significant findings. ABDOMEN: Liver: Unremarkable. Gallbladder: Unremarkable. Biliary ducts: Unremarkable. Pancreas: Unremarkable. Spleen: Unremarkable. Adrenal Glands: Unremarkable. Kidneys and Ureters: Unremarkable. Stomach and Bowel: Status post appendectomy. Mildly prominent fluid-filled nondilated loops of small bowel are seen in the central abdomen. The wall of the sigmoid colon appears mildly thickened. Peritoneum: No abnormal intraperitoneal fluid. No free air. Ventral Wall: No hernias. Abdominal Nodes: No retroperitoneal or mesenteric adenopathy by size criteria. Vessels: Aorta and inferior vena cava are normal in size. PELVIS: Pelvic Organs: Unremarkable. Bladder: Unremarkable. Pelvic Nodes: No enlarged lymph nodes. Miscellaneous: No hernias are seen. Bones: Unremarkable. IMPRESSION: Nondilated fluid-filled loops of small bowel in the central abdomen and borderline bowel wall thickening in the colon are nonspecific findings, but can be seen in the setting of a mild enterocolitis. No signs of small bowel obstruction. Dictated by: Bradford Lemons M.D. on 04/15/2022 at 18:03 Approved by: Bradford Lemons M.D. on 04/15/2022 at 18:07
[2022-04-15 17:58] LABS: Basophils Absolute Auto 100 /uL (0-100); Basophils Percent Auto 0.7 % (0-2); Eosinophils Absolute Auto 300 /uL (0-450); Eosinophils Percent Auto 2.4 % (2-4); Hematocrit 41.1 % (36-46); Hemoglobin 14.1 g/dL (12.0-16.0); Lymphocytes Absolute Auto 5400 /uL (1100-4500); Lymphocytes Percent Auto 46.7 % (25-40); Mean Corpuscular HGB Conc 34.2 % (30-36); Mean Corpuscular Hemoglobin 31.8 PG (26-34); Mean Corpuscular Volume 92.9 fL (80-100); Monocytes Absolute Auto 600 /uL (0-900); Monocytes Percent Auto 5.5 % (3-14); Neutrophils Absolute Auto 5200 /uL (1500-7000); Neutrophils Percent Auto 44.7 % (50-75); Platelet Count 228 X10^3/uL (150-400); Red Blood Cell Count 4.43 X10^6/uL (4.0-5.2); Red Cell Distribution Width 12.9 % (11.6-14.8); White Blood Cell Count 11.6 X10^3/uL (4.5-11.0)
[2022-04-15 17:59] LABS: Add Manual Diff / Slide Review SLIDE REVIEW
[2022-04-15 18:03] LABS: Alanine Aminotransferase 25 IU/L (<35); Albumin 4.2 g/dL (3.5-5.0); Albumin Globulin Ratio 1.4 (1.0-2.8); Alkaline Phosphatase 71 U/L (38-126); Aspartate Aminotransferase 28 IU/L (14-36); BUN Creatinine Ratio 12.9 (6-22); Bilirubin Total 0.5 mg/dL (0.2-1.3); Blood Urea Nitrogen 9 mg/dL (7-17); Calcium 9.1 mg/dL (8.4-10.2); Carbon Dioxide 28 mmol/L (22-32); Chloride 104 mmol/L (98-107); Estimated Glomerular Filt Rate > 60 mL/min (>60); Glucose 87 mg/dL (70-100); HEMOLYSIS < 15 (0-50); Lipase 52 U/L (23-300); Potassium 3.6 mmol/L (3.4-5.1); Sodium 137 mmol/L (137-145); Total Protein 7.2 g/dL (6.3-8.2)
[2022-04-15 18:35] LABS: RBC Morphology Normal Morphology
--- NOTE | 2022-04-15 18:41 | PC.NURSE ---
Pt tearful and wanting to go home. She attempted to take out her IV when this RN noticed. Pt did allow this RN to take out the IV and properly dress it. Notified Provider Gorge. Reviewed discharge paperwork. Pt declined vital signs from being taken.
== END 2022-04-15 18:40 | disposition home or self-care (01) ==
PROVIDERS: Emergency Provider Physician Assistant
DX: K52.9 Noninfective gastroenteritis and colitis, unspecified (principal); R10.9 Unspecified abdominal pain
CPT/HCPCS: 36415; 74177; 76705; 80053; 81001; 81003; 81025; 83690; 85025; 87070; 87075; 87086; 87205; 99284